=== PATIENT | male | born 1960 | race Caucasian/White ===

== ENCOUNTER 2020-05-06 14:05 | Outpatient (REF) | payer OTHER, SELFPAY ==
--- NOTE | 2020-05-06 14:21 | US_ITS ---
EXAMINATION: US VENOUS ULTRASOUND WITH DOPPLER LOWER EXTREMITY, LEFT CLINICAL INFORMATION: Swelling. COMPARISON: None TECHNIQUE: Ultrasound of the deep veins is performed from the hip to the calf with compression sonography and color and pulse Doppler assessment. Spectral analysis with color-flow imaging is performed. FINDINGS: There is normal venous compression and respiratory variation and augmented flow. The visualized common femoral vein, superficial femoral vein, profunda femoral vein, popliteal vein, and the trifurcation region shows no evidence of deep venous thrombosis. There is no significant popliteal fossa cyst. If the patient's symptoms persist, follow-up ultrasound in 5-7 days might be of value to exclude proximal propagation from a nonvisualized calf vein. US/US venous duplex LE LT IMPRESSION: No DVT demonstrated in the left lower extremity.
[2020-05-06 16:46] LABS: MANUAL DIFF FLAG NO
[2020-05-06 16:50] LABS: Basophils Percent Auto 0.5 % (0-2); Eosinophils Absolute Auto 0.2 X10*3/uL (0.0-0.4); Eosinophils Percent Auto 2.4 % (0-4); Hematocrit 42.6 % (42-52); Hemoglobin 13.8 g/dl (14.0-18.0); Imm Gran Abs Auto 0.04 X10*3/uL (0.00-0.03); Imm Gran Pct Auto 0.5 % (0.0-0.4); Lymphocytes Absolute Auto 2.4 X10*3/uL (1.2-4.9); Lymphocytes Percent Auto 29.8 % (20-40); Mean Corpuscular HGB Conc 32.4 g/dl (31.0-36.0); Mean Corpuscular Hemoglobin 31.1 pg (27.0-33.0); Mean Corpuscular Volume 95.9 fL (80-98); Mean Platelet Volume 11.3 fL (9.4-12.4); Monocytes Absolute Auto 0.7 X10*3/uL (0.1-1.2); Monocytes Percent Auto 8.4 % (2-11); Neutrophils Absolute Auto 4.6 X10*3/uL (2.0-8.3); Neutrophils Percent Auto 58.4 % (45-73); Platelet Count 212 X10*3/uL (160-400); Red Blood Count 4.44 X10*6/uL (4.60-5.80); Red Cell Distribution Width 13.4 % (11.0-16.0); White Blood Count 7.9 X10*3/uL (4.8-10.8)
[2020-05-06 17:23] LABS: B Type Natriuretic Peptide < 10 pg/mL (<100)
== END 2020-05-06 14:06 | disposition home or self-care (01) ==
LOC: HO.HMGCX 14:05
PROVIDERS: PCP Nurse Practitioner Family; Visit Provider Nurse Practitioner Family
DX: R23.3 Spontaneous ecchymoses (principal)
CPT/HCPCS: 36415; 83880; 85025; 93971

== ENCOUNTER 2020-09-02 08:14 | Outpatient (REF) | payer OTHER, SELFPAY ==
[2020-09-02 09:05] LABS: MANUAL DIFF FLAG NO
[2020-09-02 09:15] LABS: Basophils Percent Auto 0.6 % (0-2); Eosinophils Absolute Auto 0.1 X10*3/uL (0.0-0.4); Eosinophils Percent Auto 1.3 % (0-4); Hematocrit 46.9 % (42-52); Hemoglobin 15.4 g/dl (14.0-18.0); Imm Gran Abs Auto 0.02 X10*3/uL (0.00-0.03); Imm Gran Pct Auto 0.3 % (0.0-0.4); Lymphocytes Absolute Auto 2.3 X10*3/uL (1.2-4.9); Lymphocytes Percent Auto 33.8 % (20-40); Mean Corpuscular HGB Conc 32.8 g/dl (31.0-36.0); Mean Corpuscular Hemoglobin 29.6 pg (27.0-33.0); Mean Corpuscular Volume 90.2 fL (80-98); Mean Platelet Volume 11.7 fL (9.4-12.4); Monocytes Absolute Auto 0.6 X10*3/uL (0.1-1.2); Monocytes Percent Auto 8.3 % (2-11); Neutrophils Absolute Auto 3.8 X10*3/uL (2.0-8.3); Neutrophils Percent Auto 55.7 % (45-73); Platelet Count 235 X10*3/uL (160-400); Red Cell Distribution Width 14.3 % (11.0-16.0); White Blood Count 6.8 X10*3/uL (4.8-10.8)
[2020-09-02 09:27] LABS: Estimated Average Glucose 131 mg/dL; Hemoglobin A1c % 6.2 %
[2020-09-02 09:34] LABS: Alanine Aminotransferase 41 U/L (0-40); Albumin Level 4.5 g/dL (3.5-5.0); Alkaline Phosphatase 67 U/L (39-117); Anion Gap 12 (12-20); Aspartate Amino Transferase 22 U/L (5-37); Bilirubin Direct 0.2 mg/dL (0.0-0.5); Bilirubin Total 0.5 mg/dL (0.0-1.0); Blood Urea Nitrogen 19 mg/dL (9-16); Calcium 9.7 mg/dL (8.4-10.2); Carbon Dioxide 30 mmol/L (22-29); Chloride 103 mmol/L (96-108); Cholesterol 167 mg/dL; Estimated Glomerular Filt Rate > 60; Glucose Random 106 mg/dL (60-115); HDL Cholesterol 35 mg/dL; LDL Cholesterol Calculated 95 mg/dl; Potassium 4.3 mmol/L (3.3-5.1); Sodium 141 mmol/L (135-145); Triglycerides 185 mg/dL
[2020-09-02 09:47] LABS: Free T4 (Free Thyroxine) 0.94 ng/dL (0.71-1.85)
[2020-09-03 05:01] LABS: HIV AB/AG Nonreactive (Nonreactive); HIV Num 1 0.06 S/CO (0.00-0.99)
== END 2020-09-02 08:15 | disposition home or self-care (01) ==
LOC: HO.LAB 08:14
PROVIDERS: PCP Internal Medicine; Visit Provider Internal Medicine
DX: Z00.00 Encounter for general adult medical examination without abnormal findings (principal); Z11.4 Encounter for screening for human immunodeficiency virus [HIV]
CPT/HCPCS: 36415; 80048; 80061; 80076; 83036; 84439; 84443; 85025; 87389

== ENCOUNTER 2020-09-22 08:12 | Outpatient (REF) | payer OTHER, SELFPAY ==
--- NOTE | ~2020-09-22 | US_ITS ---
EXAMINATION: US ABDOMEN COMPLETE CLINICAL INFORMATION: Abnormal blood chemistry. COMPARISON: CT abdomen pelvis 09/29/2016. Ultrasound abdomen 06/09/2016. TECHNIQUE: Real-time imaging of the abdominal viscera. FINDINGS: PANCREAS: The head and body the pancreas are normal. The tail is not well visualized due to bowel gas. ABDOMINAL AORTA: The distal abdominal aorta appears slightly ectatic measuring 2.7 cm. This is similar to previous CTA September 2016 The upper and mid abdominal aorta are normal in caliber. INFERIOR VENA CAVA: Visualized portions are normal. LIVER: Liver is enlarged. Liver echotexture is increased suggestive of fatty infiltration. There is a hypoechoic area adjacent to the gallbladder, a characteristic location of focal fatty sparing. There is a small 6 x 3 x 5 mm cyst in the left lobe of the liver. There is no biliary duct dilatation. GALLBLADDER: Normal. The gallbladder is physiologically distended without evidence of stones, sludge, polyps, wall thickening or pericholecystic fluid. COMMON BILE DUCT: Normal in caliber measuring 0.2 cm in diameter. RIGHT KIDNEY: Normal. No hydronephrosis. No renal calculi or focal parenchymal lesions. The kidney measures 11.6 cm in maximum dimension. LEFT KIDNEY: Normal. No hydronephrosis. No renal calculi or focal parenchymal lesions. The kidney measures 12.1 cm in maximum dimension. SPLEEN: Normal. The spleen measures 11.3 cm in maximum dimension. FREE FLUID: None. US/US abdomen complete IMPRESSION: Enlarged echogenic liver probably representing fatty infiltration. Limited visualization of the pancreas. Ectatic distal abdominal aorta similar to CTA from 2016.
== END 2020-09-22 08:13 | disposition home or self-care (01) ==
LOC: HO.US 08:12
PROVIDERS: PCP Internal Medicine; Visit Provider Internal Medicine
DX: R79.89 Other specified abnormal findings of blood chemistry (principal)
CPT/HCPCS: 76700

== ENCOUNTER 2020-10-15 08:53 | Outpatient (REF) | payer OTHER, SELFPAY ==
--- NOTE | 2020-10-15 | PFT_ITS ---
FLOWS: FEV1 of 76% of predicted at 2.79 L. FVC 84% of predicted at 4.14 L. FEV1 to FVC ratio of 0.67. No bronchodilator response except in small to medium airways. LUNG VOLUMES: Total lung capacity 101% of predicted at 7.29 L. Residual volume 146% of predicted at 3.42 L. Slow vital capacity 79% of predicted at 3.87 L. Expiratory reserve volume 34% predicted at 0.49L. Diffusion capacity is moderately decreased. IMPRESSION: Moderate obstructive ventilatory defect with no bronchodilator response except in small to medium airways. Decreased expiratory reserve volume suggests extrathoracic restriction likely secondary to abdominal obesity. Decreased diffusion capacity suggests emphysema. MD ELEONORA Kraft/MODL / [id number] MTDD
== END 2020-10-15 08:54 | disposition home or self-care (01) ==
LOC: HO.RESP 08:53
PROVIDERS: PCP Internal Medicine; Visit Provider Internal Medicine
DX: R06.02 Shortness of breath (principal)
CPT/HCPCS: 94060; 94727; 94729

== ENCOUNTER 2020-10-27 06:44 | Outpatient (REF) | payer OTHER, SELFPAY ==
--- NOTE | ~2020-10-27 | XR_ITS ---
EXAMINATION: XR CHEST CLINICAL INFORMATION: Shortness of breath COMPARISON: Previous chest x-ray most recent August 2010 TECHNIQUE: 2 views of the chest were obtained. FINDINGS: The cardiac and mediastinal contours are normal. The lungs are clear. There is no pleural effusion or pneumothorax. There is a lead in the mid thoracic spinal canal. Bony structures are otherwise unremarkable. XR/XR chest 2V IMPRESSION: No evidence for acute disease in the chest.
== END 2020-10-27 06:45 | disposition home or self-care (01) ==
LOC: HO.XRAY 06:44
PROVIDERS: PCP Internal Medicine; Visit Provider Internal Medicine
DX: R06.02 Shortness of breath (principal)
CPT/HCPCS: 71046

== ENCOUNTER 2020-10-31 17:28 | Inpatient (IN) | payer OTHER, SELFPAY ==
[2020-10-31] VITALS (7 sets, daily range): BP systolic 97–128; BP diastolic 63–90; PULSE 77–99; RESP 16–18; TEMP 36.4–37.1; O2SAT 93–97; BMI 33.5
--- NOTE | ~2020-10-31 | XR_ITS ---
EXAMINATION: XR CHEST CLINICAL INFORMATION: Hypoxia COMPARISON: Previous chest x-rays most recent from yesterday TECHNIQUE: 2 views of the chest were obtained. FINDINGS: The cardiac and mediastinal contours are stable. There is atelectasis of the left lung base. The lungs are otherwise clear. There is no pleural effusion or pneumothorax. There is a stimulator seen in the lower thoracic spinal canal. There are mild degenerative changes of the spine. XR/XR chest 2V IMPRESSION: Atelectasis at the left lung base similar to yesterday's exam.
--- NOTE | ~2020-10-31 | CT_ITS ---
EXAMINATION: CT OF THE ABDOMEN AND PELVIS WITH AND WITHOUT CONTRAST CLINICAL INFORMATION: Evaluate for active GI bleed. COMPARISON: No priors. TECHNIQUE: CT of the abdomen and pelvis was performed from the lung bases to the proximal femurs before and after the uneventful intravenous administration of 80 mL of Omnipaque-350 following gastrointestinal bleed protocol. Oral contrast was not administered. Multiplanar reconstructions were performed and reviewed. This CT examination was performed using dose optimization techniques as appropriate, variously including the following: * Automated exposure control * Adjustment of mA and/or kV according to patient size (this includes techniques or standardized protocols for targeted exams where dose is matched to indication/reason for exam; i.e. extremities or head) * Use of iterative reconstruction technique FINDINGS: LINES AND TUBES: None. LOWER THORAX: Lung bases are clear. Heart is normal in size. No pericardial effusion or thickening. HEPATOBILIARY: The liver is normal in size, contour, and attenuation. No focal hepatic lesions. The gallbladder is present and otherwise unremarkable. No biliary dilatation. SPLEEN: Normal. PANCREAS: Normal. ADRENALS: Normal. KIDNEYS/URETERS: Symmetric nephrograms. No solid enhancing lesions. No renal calculi. Ureters are normal throughout their course. BLADDER: Normal. PELVIC ORGANS: Prostate seminal vesicles are normal in caliber. Central prostatic calcifications. GI TRACT: No dilated or thick walled loops of bowel. No evidence of hyperacute or delayed intraluminal contrast in the small and large bowel appreciated. The appendix is unremarkable. PERITONEUM/RETROPERITONEUM AND MESENTERY: No intraperitoneal free air or fluid. LYMPH NODES: No pathologically enlarged lymph nodes. VESSELS: Normal in caliber. BONES AND SOFT TISSUES: No aggressive osseous lesions. L4-S1 instrumentation without hardware abnormality. CT/CT gi bleed abd pel wo/w con IMPRESSION: No evidence of hyperacute or delayed intraluminal contrast in the visualized bowel to suggest CT imaging findings of gastrointestinal bleeding. No acute pathology in the abdomen/pelvis. Normal caliber small and large bowel.
--- NOTE | ~2020-10-31 | XR_ITS ---
EXAMINATION: XR CHEST CLINICAL INFORMATION: Decreased oxygen saturation. Rule out aspiration pneumonia COMPARISON: Previous chest x-ray 10/27/2020 TECHNIQUE: 2 views of the chest were obtained. FINDINGS: The cardiac and mediastinal contours are normal. There is subsegmental atelectasis of the left lung base. No evidence of a pneumonia is seen. There is no pleural effusion or pneumothorax. There is a spinal stimulator in the lower thoracic spinal canal. There are mild degenerative changes of the spine. XR/XR chest 2V IMPRESSION: Subsegmental atelectasis at the left lung base. No evidence of pneumonia.
--- NOTE | 2020-10-31 19:04 | ECG_ITS ---
Test Reason : GI-BLEED Blood Pressure : / mmHG Vent. Rate : 071 BPM Atrial Rate : 071 BPM P-R Int : 150 ms QRS Dur : 088 ms QT Int : 380 ms P-R-T Axes : 061 -31 030 degrees QTc Int : 412 ms Normal sinus rhythm Left axis deviation Borderline ECG When compared with ECG of 30-JUL-2009 06:32, T wave amplitude has decreased in Anterior leads Referred By: Remedios Pham Electronically Signed By:SHELIA WEAVER
[2020-10-31 19:08] LABS: OBS Int Ctl Valid YES; OBS1 POSITIVE (NEGATIVE)
[2020-10-31 19:38] LABS: MANUAL DIFF FLAG NO
[2020-10-31 19:39] LABS: Basophils Absolute Auto 0.1 X10*3/uL (0.0-0.2); Basophils Percent Auto 0.6 % (0-2); Eosinophils Absolute Auto 0.2 X10*3/uL (0.0-0.4); Eosinophils Percent Auto 2.4 % (0-4); Hematocrit 37.4 % (42-52); Hemoglobin 12.2 g/dl (14.0-18.0); Imm Gran Abs Auto 0.03 X10*3/uL (0.00-0.03); Imm Gran Pct Auto 0.4 % (0.0-0.4); Lymphocytes Percent Auto 37.5 % (20-40); Mean Corpuscular HGB Conc 32.6 g/dl (31.0-36.0); Mean Corpuscular Hemoglobin 30.2 pg (27.0-33.0); Mean Corpuscular Volume 92.6 fL (80-98); Monocytes Absolute Auto 0.8 X10*3/uL (0.1-1.2); Monocytes Percent Auto 9.5 % (2-11); Neutrophils Percent Auto 49.6 % (45-73); Platelet Count 202 X10*3/uL (160-400); Red Blood Count 4.04 X10*6/uL (4.60-5.80); Red Cell Distribution Width 14.2 % (11.0-16.0)
[2020-10-31 19:47] LABS: Prothrombin Time 12.4 SEC (10.8-13.0)
[2020-10-31 19:52] LABS: COVID-19 Test Negative (Negative)
--- NOTE | 2020-10-31 19:52 | ED.GIBLEED ---
HPI - GI Bleed General Chief complaint: GI Bleed <Remedios Pham NP - Last Filed: 10/31/20 21:21> Stated complaint: Rectal bleeding <Remedios Pham NP - Last Filed: 10/31/20 21:21> Time Seen by Provider: 10/31/20 19:04 <Remedios Pham NP - Last Filed: 10/31/20 21:21> Source: patient <Remedios Pham NP - Last Filed: 10/31/20 21:21> Mode of arrival: ambulatory <Remedios Pham NP - Last Filed: 10/31/20 21:21> Limitations: no limitations <Remedios Pham NP - Last Filed: 10/31/20 21:21> History of Present Illness HPI Narrative: 60-year-old male with a past medical history of chronic back pain, anxiety, depression, high cholesterol here with complaints of rectal bleeding. The patient tells me yesterday he had 8 episodes of bright red blood in his stool and today he has had 3 episodes. No associated abdominal pain. No nausea, vomiting, fevers, chills. The patient has been taking naproxen twice daily for years due to chronic back pain. He denies any history of upper GI bleed or liver problems. He has a history of alcohol abuse but has been sober for 6 months. Prior to this he was drinking 20-30 nips of fireball every day for years. Last colonoscopy by Dr. Mckeon. Per patient's normal with exception of some polyps status post polypectomy, mild sigmoid diverticulosis, minimal internal hemorrhoids. <Remedios Pham NP - Last Filed: 10/31/20 21:21> Related Data Home medications: Home Medications Medication Instructions Recorded Confirmed naproxen 500 mg tablet 500 mg PO BID 05/06/20 10/31/20 pregabalin 300 mg capsule 300 mg PO BID 05/06/20 10/31/20 sertraline 100 mg tablet 100 mg PO DAILY 05/06/20 10/31/20 simvastatin 20 mg tablet 20 mg PO BEDTIME 05/06/20 10/31/20 zolpidem 12.5 mg tablet,extended 12.5 mg PO BEDTIME 05/06/20 10/31/20 release,multiphase hydroxyzine HCl 1 tab PO BID 10/31/20 10/31/20 loteprednol etabonate 1 drp OPHTHALMIC (EYE) BID 10/31/20 10/31/20 tadalafil 1 tab PO DAILY PRN 10/31/20 10/31/20 tramadol 1 tab PO Q12H PRN 10/31/20 10/31/20 <Remedios Pham NP - Last Filed: 10/31/20 21:21> Allergies/Adverse reactions: Allergies Allergy/AdvReac Type Severity Reaction Status Date / Time clonazepam [Klonopin] Allergy Unknown Unknown Verified 05/06/20 12:51 No Known Allergies Allergy Unverified 03/12/20 15:06 <Remedios Pham NP - Last Filed: 10/31/20 21:21> Review of Systems Review of Systems: Yes all other systems are reviewed and are negative <Remedios Pham NP - Last Filed: 10/31/20 21:21> Constitutional: Constitutional: Reports no additional constitutional complaints, Denies body ache(s), Denies chills, Denies fever(s), Denies headache(s) and Denies weakness <Remedios Pham NP - Last Filed: 10/31/20 21:21> Eyes: Eyes: Reports no additional eye complaints and Denies change in vision <Remedios Pham NP - Last Filed: 10/31/20 21:21> ENT: Reports system reviewed and no additional complaints, except as documented, Denies dizziness, Denies headache(s), Denies nasal congestion, Denies nasal discharge and Denies neck pain <Remedios Pham NP - Last Filed: 10/31/20 21:21> Cardiovascular: Cardiovascular: Reports no additional cardiovascular complaints, Denies chest pain, Denies leg edema and Denies dyspnea <Remedios Pham NP - Last Filed: 10/31/20 21:21> Respiratory: Respiratory: Reports no additional respiratory complaints, Denies cough and Denies dyspnea <EDMUND Hansen Last Filed: 10/31/20 21:21> Gastrointestinal: Gastrointestinal: Reports no additional gastrointestinal complaints, Denies abdominal pain, Reports hematochezia, Denies diarrhea, Denies nausea and Denies vomiting <Remedios Pham NP - Last Filed: 10/31/20 21:21> Genitourinary: Genitourinary: Denies urinary incontinence <Remedios Pham NP - Last Filed: 10/31/20 21:21> Musculoskeletal: Musculoskeletal: Reports no additional musculoskeletal complaints, Denies back pain, Denies arthralgias, Denies joint swelling, Denies neck pain, Denies numbness and Denies tingling <Remedios Pham NP - Last Filed: 10/31/20 21:21> Integumentary/Breasts: Skin/Breast: Reports system reviewed and no additional complaints, except as docu and Denies rash <Remedios Pham NP - Last Filed: 10/31/20 21:21> Neurologic: Reports system reviewed and no additional complaints, except as documented, Denies Abnormal speech present, Denies dizziness, Denies headache(s), Denies numbness, Denies tingling and Denies weakness <Remedios Pham NP - Last Filed: 10/31/20 21:21> [facility] Past Medical History Attestation statement: The following information was validated with the patient. <Remedios Pham NP - Last Filed: 10/31/20 21:21> Source: old records reviewed and nursing notes reviewed <Remedios Pham NP - Last Filed: 10/31/20 21:21> Medical History: Medical History Arthritis Back pain Hypercholesterolemia <Remedios Pham NP - Last Filed: 10/31/20 21:21> Social History Social History: Social History Advance Directives: No Advance Directives Information Provided: Yes <Remedios Pham NP - Last Filed: 10/31/20 21:21> Physical Exam Vital Signs: Vital Signs: Last Vital Signs Temp 97.6 F 10/31/20 22:00 Pulse 85 10/31/20 22:00 Resp 18 10/31/20 22:00 BP 98/71 10/31/20 22:00 Pulse Ox 95 10/31/20 22:00 Body Mass Index 33.5 <Remedios Pham NP - Last Filed: 10/31/20 21:21> Vital Signs: Last Vital Signs Temp 97.6 F 10/31/20 22:00 Pulse 85 10/31/20 22:00 Resp 18 10/31/20 22:00 BP 98/71 10/31/20 22:00 Pulse Ox 95 10/31/20 22:00 Body Mass Index 33.5 <Lynn Umanzor MD - Last Filed: 10/31/20 23:25> Const: General: cooperative, healthy appearing, comfortable and no acute distress <Remedios Pham NP - Last Filed: 10/31/20 21:21> Orientation/consciousness: patient oriented x3 <Remedios Pham NP - Last Filed: 10/31/20 21:21> Limitations: no limitations <Remedios Pham NP - Last Filed: 10/31/20 21:21> HENMT: Head: Yes normal to inspection <Remedios Pham NP - Last Filed: 10/31/20 21:21> Ears: hearing grossly normal bilaterally <Remedios Pham NP - Last Filed: 10/31/20 21:21> General nose exam: Normal external nose present <Remedios Pham NP - Last Filed: 10/31/20 21:21> Face and sinus: Yes normal facial exam <Remedios Pham NP - Last Filed: 10/31/20 21:21> Mouth: Normal oral and palatal mucosa present <Remedios Pham NP - Last Filed: 10/31/20 21:21> Throat: Yes posterior oropharynx normal <Remedios Pham NP - Last Filed: 10/31/20 21:21> Eyes: General: appearance normal, both eyes and all related structures <Remedios Pham NP - Last Filed: 10/31/20 21:21> Pupils: Equal, round and reactive pupils present <Remedios Pham NP - Last Filed: 10/31/20 21:21> Neck: Neck: Yes normal visual inspection <Remedios Pham NP - Last Filed: 10/31/20 21:21> Chest: Chest palpation & inspection: normal inspection of the chest <Remedios Pham NP - Last Filed: 10/31/20 21:21> Resp: Effort & Inspection: normal respiratory effort <Remedios Pham NP - Last Filed: 10/31/20 21:21> Auscultation: clear to auscultation bilaterally <Remedios Pham NP - Last Filed: 10/31/20 21:21> Cardio: Rate: regular rate <Remedios Pham NP - Last Filed: 10/31/20 21:21> Rhythm: regular rhythm <Remedios Pham NP - Last Filed: 10/31/20 21:21> Peripheral pulses: Peripheral pulses 2+ throughout <Remedios Pham NP - Last Filed: 10/31/20 21:21> GI: Other: Stool maroon on exam <Remedios Pham NP - Last Filed: 10/31/20 21:21> Inspection: Yes normal to inspection <Remedios Pham NP - Last Filed: 10/31/20 21:21> Palpation (GI): Soft to palpation and nontender <Remedios Pham NP - Last Filed: 10/31/20 21:21> Auscultation: normal bowel sounds <Remedios Pham NP - Last Filed: 10/31/20 21:21> Rectal Exam - Male: Yes normal sphincter tone and Yes heme positive stool <Remedios Pham NP - Last Filed: 10/31/20 21:21> Back/Spine/Pelvis: Thoracic/Lumbar Spine: thoracic and lumbar spine normal to inspection <Remedios Pham NP - Last Filed: 10/31/20 21:21> Skin: General skin exam: no rashes or lesions noted <Remedios Pham NP - Last Filed: 10/31/20 21:21> Neuro: General: patient oriented x3, no focal motor deficits and normal sensation to monofilament <Remedios Pham NP - Last Filed: 10/31/20 21:21> Cranial nerves: Yes Equal, round and reactive pupils present <Remedios Pham NP - Last Filed: 10/31/20 21:21> Cognition (Neuro): normal cognition <Remedios Pham NP - Last Filed: 10/31/20 21:21> Speech: No Abnormal speech present <Remedios Pham NP - Last Filed: 10/31/20 21:21> Gait exam (Neuro): Normal gait present <Remedios Pham NP - Last Filed: 10/31/20 21:21> Motor exam (neuro): 5/5 motor strength present throughout <Remedios Pham NP - Last Filed: 10/31/20 21:21> Extrem: General: Yes normal to inspection <Remedios Pham NP - Last Filed: 10/31/20 21:21> Course Course Course Narrative: 60 year old male here with GI bleeding since yesterday. No associated pain. Exam consistent with maroon stool on exam heme-positive. Will need labs including type and screen, UA, EKG, orthostatic vital signs and 2 large bore PIV. 1999-labs show hemoglobin of 12.2 and hematocrit of 37.4. The patient had a CBC done 09/02/2020 which shows a hemoglobin of 15.4 and hematocrit of 46.9. Chemistries are unremarkable. Orthostatics negative. HD stable. Two episodes of bloody stools in ED. Call out to GI to discuss. 2029-discussed with Dr. Garcia from GI. Recommended obtaining GI bleed study, monitoring hemoglobin, NPO after midnight for procedure tomorrow. 2099-Repeat CBC pending. GI bleed study pending. Spoke to Dr Rodriguez from medicine team for admission. Requesting repeat CBC, CT, update with GI as well as any additional episodes prior to admission. 2114-Sign out to Dr Umanzor pending above. <Remedios Pham NP - Last Filed: 10/31/20 21:21> Re-evaluated the patient and reviewed all further studies, hemoglobin appears to be somewhat stable and CT scan is ?no evidence of hyperacute or delayed intra luminal contrast in the visualized bowel to suggest CT imaging findings of gastrointestinal bleeding.?. All findings were communicated with the knifeman as well as the inpatient hospitalist team as well as the fact the patient continues to have maroon stools. Patient will be admitted at this time. <Lynn Umanzor MD - Last Filed: 10/31/20 23:25> MDM - GI Bleed MDM Narrative Medical decision making narrative: Not likely upper GI bleeding with only hematochezia and NO hematememsis although based on h/o chronic NSAID and former alcohol abuse is still a consideration. More likely diverticular bleed with h/o of diverticulosis and hematochezia. <Remedios Pham NP - Last Filed: 10/31/20 21:21> Medical Records Attestation: I reviewed the patient's medical records. <Remedios Pham NP - Last Filed: 10/31/20 21:21> Lab Data Attestation: I reviewed the patient's lab results. <Remedios Pham NP - Last Filed: 10/31/20 21:21> Result diagrams: : 10/31/20 21:23 10/31/20 19:31 <Remedios Pham NP - Last Filed: 10/31/20 21:21> Labs: Lab Results 10/31/20 10/31/20 10/31/20 Range/Units 19:02 19:31 19:31 WBC 8.0 (4.8-10.8) X10*3/uL RBC 4.04 L D (4.60-5.80) X10*6/uL Hgb 12.2 L D (14.0-18.0) g/dl Hct 37.4 L D (42-52) % MCV 92.6 (80-98) fL MCH 30.2 (27.0-33.0) pg MCHC 32.6 (31.0-36.0) g/dl RDW 14.2 (11.0-16.0) % Plt Count 202 (160-400) X10*3/uL MPV 11.0 (9.4-12.4) fL Immature Gran % (Auto) 0.4 (0.0-0.4) % Neut % (Auto) 49.6 (45-73) % Lymph % (Auto) 37.5 (20-40) % [place] % (Auto) 9.5 (2-11) % Eos % (Auto) 2.4 (0-4) % Baso % (Auto) 0.6 (0-2) % Lymph # (Auto) 3.0 (1.2-4.9) X10*3/uL [place] # (Auto) 0.8 (0.1-1.2) X10*3/uL Eos # (Auto) 0.2 (0.0-0.4) X10*3/uL Baso # (Auto) 0.1 (0.0-0.2) X10*3/uL Abs Immat Gran (auto) 0.03 (0.00-0.03) X10*3/uL Absolute Neuts (auto) 4.0 (2.0-8.3) X10*3/uL Absolute Nucleated RBC 0.000 (0.0-0.012) X10*3/uL Nucleated RBC % (auto) 0.0 (0.0-0.2) /100WBC PT 12.4 (10.8-13.0) SEC INR 1.0 (0.9-1.1) Sodium (135-145) mmol/L Potassium (3.3-5.1) mmol/L Chloride (96-108) mmol/L Carbon Dioxide (22-29) mmol/L Anion Gap (12-20) BUN (9-16) mg/dL Creatinine (0.5-1.4) mg/dL Estim Creat Clear Calc Estimated GFR Random Glucose (60-115) mg/dL Calcium (8.4-10.2) mg/dL Magnesium (1.6-2.6) mg/dL Total Bilirubin (0.0-1.0) mg/dL Direct Bilirubin (0.0-0.5) mg/dL AST (5-37) U/L ALT (0-40) U/L Alkaline Phosphatase (39-117) U/L Total Protein (6.5-8.0) g/dL Albumin (3.5-5.0) g/dL Lipase (8-78) U/L Stool Occult Blood POSITIVE (NEGATIVE) COVID-19 (JACKLYN) (Negative) COVID-19 Clin [facility] Blood Type Antibody Screen Crossmatch 10/31/20 10/31/20 10/31/20 Range/Units 19:31 19:31 19:39 WBC (4.8-10.8) X10*3/uL RBC (4.60-5.80) X10*6/uL Hgb (14.0-18.0) g/dl Hct (42-52) % MCV (80-98) fL MCH (27.0-33.0) pg MCHC (31.0-36.0) g/dl RDW (11.0-16.0) % Plt Count (160-400) X10*3/uL MPV (9.4-12.4) fL Immature Gran % (Auto) (0.0-0.4) % Neut % (Auto) (45-73) % Lymph % (Auto) (20-40) % [place] % (Auto) (2-11) % Eos % (Auto) (0-4) % Baso % (Auto) (0-2) % Lymph # (Auto) (1.2-4.9) X10*3/uL [place] # (Auto) (0.1-1.2) X10*3/uL Eos # (Auto) (0.0-0.4) X10*3/uL Baso # (Auto) (0.0-0.2) X10*3/uL Abs Immat Gran (auto) (0.00-0.03) X10*3/uL Absolute Neuts (auto) (2.0-8.3) X10*3/uL Absolute Nucleated RBC (0.0-0.012) X10*3/uL Nucleated RBC % (auto) (0.0-0.2) /100WBC PT (10.8-13.0) SEC INR (0.9-1.1) Sodium 141 (135-145) mmol/L Potassium 4.8 (3.3-5.1) mmol/L Chloride 109 H (96-108) mmol/L Carbon Dioxide 26 (22-29) mmol/L Anion Gap 11 L (12-20) BUN 18 H (9-16) mg/dL Creatinine 0.98 (0.5-1.4) mg/dL Estim Creat Clear Calc 98.0 Estimated GFR > 60 Random Glucose 105 (60-115) mg/dL Calcium 8.7 D (8.4-10.2) mg/dL Magnesium 2.1 (1.6-2.6) mg/dL Total Bilirubin 0.7 (0.0-1.0) mg/dL Direct Bilirubin 0.2 (0.0-0.5) mg/dL AST 26 (5-37) U/L ALT 46 H (0-40) U/L Alkaline Phosphatase 60 (39-117) U/L Total Protein 6.0 L (6.5-8.0) g/dL Albumin 3.9 (3.5-5.0) g/dL Lipase 25 (8-78) U/L Stool Occult Blood (NEGATIVE) COVID-19 (JACKLYN) Negative (Negative) COVID-19 Clin Com See Note Blood Type A Positive Antibody Screen NEGATIVE Crossmatch See Detail 10/31/20 Range/Units 21:23 WBC 8.6 (4.8-10.8) X10*3/uL RBC 3.92 L (4.60-5.80) X10*6/uL Hgb 12.0 L (14.0-18.0) g/dl Hct 36.5 L (42-52) % MCV 93.1 (80-98) fL MCH 30.6 (27.0-33.0) pg MCHC 32.9 (31.0-36.0) g/dl RDW 14.3 (11.0-16.0) % Plt Count 229 (160-400) X10*3/uL MPV 11.3 (9.4-12.4) fL Immature Gran % (Auto) 0.2 (0.0-0.4) % Neut % (Auto) 47.8 (45-73) % Lymph % (Auto) 39.7 (20-40) % [place] % (Auto) 9.5 (2-11) % Eos % (Auto) 2.1 (0-4) % Baso % (Auto) 0.7 (0-2) % Lymph # (Auto) 3.4 (1.2-4.9) X10*3/uL [place] # (Auto) 0.8 (0.1-1.2) X10*3/uL Eos # (Auto) 0.2 (0.0-0.4) X10*3/uL Baso # (Auto) 0.1 (0.0-0.2) X10*3/uL Abs Immat Gran (auto) 0.02 (0.00-0.03) X10*3/uL Absolute Neuts (auto) 4.1 (2.0-8.3) X10*3/uL Absolute Nucleated RBC 0.000 (0.0-0.012) X10*3/uL Nucleated RBC % (auto) 0.0 (0.0-0.2) /100WBC PT (10.8-13.0) SEC INR (0.9-1.1) Sodium (135-145) mmol/L Potassium (3.3-5.1) mmol/L Chloride (96-108) mmol/L Carbon Dioxide (22-29) mmol/L Anion Gap (12-20) BUN (9-16) mg/dL Creatinine (0.5-1.4) mg/dL Estim Creat Clear Calc Estimated GFR Random Glucose (60-115) mg/dL Calcium (8.4-10.2) mg/dL Magnesium (1.6-2.6) mg/dL Total Bilirubin (0.0-1.0) mg/dL Direct Bilirubin (0.0-0.5) mg/dL AST (5-37) U/L ALT (0-40) U/L Alkaline Phosphatase (39-117) U/L Total Protein (6.5-8.0) g/dL Albumin (3.5-5.0) g/dL Lipase (8-78) U/L Stool Occult Blood (NEGATIVE) COVID-19 (JACKLYN) (Negative) COVID-19 Clin Com Blood Type Antibody Screen Crossmatch <Remedios Pham NP - Last Filed: 10/31/20 21:21> Lab Results 10/31/20 10/31/20 10/31/20 Range/Units 19:02 19:31 19:31 WBC 8.0 (4.8-10.8) X10*3/uL RBC 4.04 L D (4.60-5.80) X10*6/uL Hgb 12.2 L D (14.0-18.0) g/dl Hct 37.4 L D (42-52) % MCV 92.6 (80-98) fL MCH 30.2 (27.0-33.0) pg MCHC 32.6 (31.0-36.0) g/dl RDW 14.2 (11.0-16.0) % Plt Count 202 (160-400) X10*3/uL MPV 11.0 (9.4-12.4) fL Immature Gran % (Auto) 0.4 (0.0-0.4) % Neut % (Auto) 49.6 (45-73) % Lymph % (Auto) 37.5 (20-40) % [place] % (Auto) 9.5 (2-11) % Eos % (Auto) 2.4 (0-4) % Baso % (Auto) 0.6 (0-2) % Lymph # (Auto) 3.0 (1.2-4.9) X10*3/uL [place] # (Auto) 0.8 (0.1-1.2) X10*3/uL Eos # (Auto) 0.2 (0.0-0.4) X10*3/uL Baso # (Auto) 0.1 (0.0-0.2) X10*3/uL Abs Immat Gran (auto) 0.03 (0.00-0.03) X10*3/uL Absolute Neuts (auto) 4.0 (2.0-8.3) X10*3/uL Absolute Nucleated RBC 0.000 (0.0-0.012) X10*3/uL Nucleated RBC % (auto) 0.0 (0.0-0.2) /100WBC PT 12.4 (10.8-13.0) SEC INR 1.0 (0.9-1.1) Sodium (135-145) mmol/L Potassium (3.3-5.1) mmol/L Chloride (96-108) mmol/L Carbon Dioxide (22-29) mmol/L Anion Gap (12-20) BUN (9-16) mg/dL Creatinine (0.5-1.4) mg/dL Estim Creat Clear Calc Estimated GFR Random Glucose (60-115) mg/dL Calcium (8.4-10.2) mg/dL Magnesium (1.6-2.6) mg/dL Total Bilirubin (0.0-1.0) mg/dL Direct Bilirubin (0.0-0.5) mg/dL AST (5-37) U/L ALT (0-40) U/L Alkaline Phosphatase (39-117) U/L Total Protein (6.5-8.0) g/dL Albumin (3.5-5.0) g/dL Lipase (8-78) U/L Stool Occult Blood POSITIVE (NEGATIVE) COVID-19 (JACKLYN) (Negative) COVID-19 Clin Com Blood Type Antibody Screen Crossmatch 10/31/20 10/31/20 10/31/20 Range/Units 19:31 19:31 19:39 WBC (4.8-10.8) X10*3/uL RBC (4.60-5.80) X10*6/uL Hgb (14.0-18.0) g/dl Hct (42-52) % MCV (80-98) fL MCH (27.0-33.0) pg MCHC (31.0-36.0) g/dl RDW (11.0-16.0) % Plt Count (160-400) X10*3/uL MPV (9.4-12.4) fL Immature Gran % (Auto) (0.0-0.4) % Neut % (Auto) (45-73) % Lymph % (Auto) (20-40) % [place] % (Auto) (2-11) % Eos % (Auto) (0-4) % Baso % (Auto) (0-2) % Lymph # (Auto) (1.2-4.9) X10*3/uL [place] # (Auto) (0.1-1.2) X10*3/uL Eos # (Auto) (0.0-0.4) X10*3/uL Baso # (Auto) (0.0-0.2) X10*3/uL Abs Immat Gran (auto) (0.00-0.03) X10*3/uL Absolute Neuts (auto) (2.0-8.3) X10*3/uL Absolute Nucleated RBC (0.0-0.012) X10*3/uL Nucleated RBC % (auto) (0.0-0.2) /100WBC PT (10.8-13.0) SEC INR (0.9-1.1) Sodium 141 (135-145) mmol/L Potassium 4.8 (3.3-5.1) mmol/L Chloride 109 H (96-108) mmol/L Carbon Dioxide 26 (22-29) mmol/L Anion Gap 11 L (12-20) BUN 18 H (9-16) mg/dL Creatinine 0.98 (0.5-1.4) mg/dL Estim Creat Clear Calc 98.0 Estimated GFR > 60 Random Glucose 105 (60-115) mg/dL Calcium 8.7 D (8.4-10.2) mg/dL Magnesium 2.1 (1.6-2.6) mg/dL Total Bilirubin 0.7 (0.0-1.0) mg/dL Direct Bilirubin 0.2 (0.0-0.5) mg/dL AST 26 (5-37) U/L ALT 46 H (0-40) U/L Alkaline Phosphatase 60 (39-117) U/L Total Protein 6.0 L (6.5-8.0) g/dL Albumin 3.9 (3.5-5.0) g/dL Lipase 25 (8-78) U/L Stool Occult Blood (NEGATIVE) COVID-19 (JACKLYN) Negative (Negative) COVID-19 Clin Com See Note Blood Type A Positive Antibody Screen NEGATIVE Crossmatch See Detail 10/31/20 Range/Units 21:23 WBC 8.6 (4.8-10.8) X10*3/uL RBC 3.92 L (4.60-5.80) X10*6/uL Hgb 12.0 L (14.0-18.0) g/dl Hct 36.5 L (42-52) % MCV 93.1 (80-98) fL MCH 30.6 (27.0-33.0) pg MCHC 32.9 (31.0-36.0) g/dl RDW 14.3 (11.0-16.0) % Plt Count 229 (160-400) X10*3/uL MPV 11.3 (9.4-12.4) fL Immature Gran % (Auto) 0.2 (0.0-0.4) % Neut % (Auto) 47.8 (45-73) % Lymph % (Auto) 39.7 (20-40) % [place] % (Auto) 9.5 (2-11) % Eos % (Auto) 2.1 (0-4) % Baso % (Auto) 0.7 (0-2) % Lymph # (Auto) 3.4 (1.2-4.9) X10*3/uL [place] # (Auto) 0.8 (0.1-1.2) X10*3/uL Eos # (Auto) 0.2 (0.0-0.4) X10*3/uL Baso # (Auto) 0.1 (0.0-0.2) X10*3/uL Abs Immat Gran (auto) 0.02 (0.00-0.03) X10*3/uL Absolute Neuts (auto) 4.1 (2.0-8.3) X10*3/uL Absolute Nucleated RBC 0.000 (0.0-0.012) X10*3/uL Nucleated RBC % (auto) 0.0 (0.0-0.2) /100WBC PT (10.8-13.0) SEC INR (0.9-1.1) Sodium (135-145) mmol/L Potassium (3.3-5.1) mmol/L Chloride (96-108) mmol/L Carbon Dioxide (22-29) mmol/L Anion Gap (12-20) BUN (9-16) mg/dL Creatinine (0.5-1.4) mg/dL Estim Creat Clear Calc Estimated GFR Random Glucose (60-115) mg/dL Calcium (8.4-10.2) mg/dL Magnesium (1.6-2.6) mg/dL Total Bilirubin (0.0-1.0) mg/dL Direct Bilirubin (0.0-0.5) mg/dL AST (5-37) U/L ALT (0-40) U/L Alkaline Phosphatase (39-117) U/L Total Protein (6.5-8.0) g/dL Albumin (3.5-5.0) g/dL Lipase (8-78) U/L Stool Occult Blood (NEGATIVE) COVID-19 (JACKLYN) (Negative) COVID-19 Clin Com Blood Type Antibody Screen Crossmatch <Lynn Umanzor MD - Last Filed: 10/31/20 23:25> ECG Data Attestation: I personally reviewed and interpreted this ECG as follows: <Remedios Pham NP - Last Filed: 10/31/20 21:21> ECG interpretation date: 10/31/20 <Remedios Pham NP - Last Filed: 10/31/20 21:21> ECG interpretation time: 19:32 <Remedios Pham NP - Last Filed: 10/31/20 21:21> Interpretation: Normal sinus rhythm with a rate of 71, normal VT, remarked QRS, QTC <Remedios Pham NP - Last Filed: 10/31/20 21:21> Discharge Plan Discharge Clinical Impression: Lower gastrointestinal hemorrhage <Remedios Pham NP - Last Filed: 10/31/20 21:21> Patient Disposition: Admitted As Inpatient <Remedios Pham NP - Last Filed: 10/31/20 21:21>
[2020-10-31 20:02] LABS: Alanine Aminotransferase 46 U/L (0-40); Albumin Level 3.9 g/dL (3.5-5.0); Alkaline Phosphatase 60 U/L (39-117); Anion Gap 11 (12-20); Aspartate Amino Transferase 26 U/L (5-37); Bilirubin Direct 0.2 mg/dL (0.0-0.5); Bilirubin Total 0.7 mg/dL (0.0-1.0); Blood Urea Nitrogen 18 mg/dL (9-16); Calcium 8.7 mg/dL (8.4-10.2); Carbon Dioxide 26 mmol/L (22-29); Chloride 109 mmol/L (96-108); Estimated Glomerular Filt Rate > 60; Glucose Random 105 mg/dL (60-115); Lipase 25 U/L (8-78); Magnesium 2.1 mg/dL (1.6-2.6); Potassium 4.8 mmol/L (3.3-5.1); Sodium 141 mmol/L (135-145)
--- NOTE | 2020-10-31 20:24 | PC.NURSE ---
ASSUMED CARE OF PT. PT UP AND IN RESTROOM AT THIS TIME. PT HAVING FREQUENT BM'S WITH SOME CLOTS IN STOOL. PT ALERT, RESPIRATIONS EASY, N/L. SKIN W/D. FAMILY WITH PT AT BEDSIDE. PT AWAITING PENDING ADMISSION. PT AWAITING FURTHER ORDERS.
[2020-10-31] MEDS: iohexoL 350 MG/ML 100 ML INFUS..BTL IV (20:52)
[2020-10-31] MEDS: 0.9 % Sodium Chloride 1,000 ML 999 ML IV (20:54)
[2020-10-31 21:27] LABS: MANUAL DIFF FLAG NO
[2020-10-31 21:28] LABS: Basophils Absolute Auto 0.1 X10*3/uL (0.0-0.2); Basophils Percent Auto 0.7 % (0-2); Eosinophils Absolute Auto 0.2 X10*3/uL (0.0-0.4); Eosinophils Percent Auto 2.1 % (0-4); Hematocrit 36.5 % (42-52); Imm Gran Abs Auto 0.02 X10*3/uL (0.00-0.03); Imm Gran Pct Auto 0.2 % (0.0-0.4); Lymphocytes Absolute Auto 3.4 X10*3/uL (1.2-4.9); Lymphocytes Percent Auto 39.7 % (20-40); Mean Corpuscular HGB Conc 32.9 g/dl (31.0-36.0); Mean Corpuscular Hemoglobin 30.6 pg (27.0-33.0); Mean Corpuscular Volume 93.1 fL (80-98); Mean Platelet Volume 11.3 fL (9.4-12.4); Monocytes Absolute Auto 0.8 X10*3/uL (0.1-1.2); Monocytes Percent Auto 9.5 % (2-11); Neutrophils Absolute Auto 4.1 X10*3/uL (2.0-8.3); Neutrophils Percent Auto 47.8 % (45-73); Platelet Count 229 X10*3/uL (160-400); Red Blood Count 3.92 X10*6/uL (4.60-5.80); Red Cell Distribution Width 14.3 % (11.0-16.0); White Blood Count 8.6 X10*3/uL (4.8-10.8)
--- NOTE | 2020-10-31 23:10 | PC.NURSE ---
PT C/O FEELING NAUSEATED AT THIS TIME. PT IS NOT VOMITING. MD AWARE. COMMODE AT BEDSIDE SO MD CAN VISUALIZED THE BM'S. NS UP AND RUNNING, SITE INTACT.
[2020-10-31] MEDS: ondansetron HCL 4 MG/2 ML VIAL IVPUSH (23:41)
--- NOTE | 2020-10-31 23:45 | PC.NURSE ---
hospitalist in room for eval. Pt medicated for nausea at this time.
--- NOTE | 2020-10-31 23:57 | PC.NURSE ---
APPROX 100ML OF DARK BURGENDY STOOL IN COMMODE. MD AWARE. CONSENT SIGNED FOR TRANSFUSION. PT DENIES ANY SOB OR DIZZINESS AT THIS TIME. PT STATES IM FEELING LESS NAUSEOUS . PT REMAINS ALERT, RESPIRATIONS EASY, N/L. SKIN W/D. PT DENIES ANY COMPLAINTS. REMAINS AT BEDSIDE WITH PT. PT AWAITING FOR ROOM ASSIGNMENT.
[2020-11-01] VITALS (25 sets, daily range): BP systolic 85–140; BP diastolic 49–87; PULSE 62–88; RESP 14–20; TEMP 35.8–37.1; O2SAT 95–99
--- NOTE | 2020-11-01 00:38 | PC.NURSE ---
transfusion started at this time. pt educated on s/s of reaction. vs obtained.
[2020-11-01] MEDS: Morphine Sulfate 4 MG/ML CARTRIDGE 3 MG IVPUSH (02:31)
[2020-11-01] MEDS: Pantoprazole Sodium 40 MG/10 ML VIAL IVPUSH ×2 (05:17→16:03)
--- NOTE | 2020-11-01 06:32 | P.HPHOSP_ITS ---
History of Present Illness Date of Service: 10/31/20 Chief Complaint: GI bleed Of arthritis for which he uses Naprosyn twice daily for more than a year, HLD who presents to the hospital with complaints of multiple episodes of bloody bowel movements. Patient reports he had 8 episodes a day prior, and further episodes today which prompted him to come to the hospital. Has had bright red blood, with some urgency to move his bowels, no nausea or vomiting, no significant abdominal pain except some cramping like go to the toilet constantly, no urinary symptoms and no lower extremity edema. No chest pain shortness of breath. Denies feeling any dizziness, headache or change in vision. On arrival to the ED hemodynamically stable with no significant abnormal vitals. Stable heart rate, respiratory rate, and blood pressure Had a hemoglobin of 12.2, normal WBC, BUN of 18, ALT of 46, otherwise unremarkable. Repeat H&H are 12. Abdominal pelvic CT showed no evidence of hyperacute or delayed intraluminal co ntrast and the visualized bowel to suggest CT image findings of gastrointestinal bleed Had multiple episodes of GI bleed in the ED. Dr. Garcia was consulted and recommended GI prep for colonoscopy endoscopy in the morning Review of Systems Review of Systems: Yes all other systems are reviewed and are negative [facility] Medical History Arthritis Back pain Hypercholesterolemia Social History Household Members: Spouse Housing: House Smoking Status: Never smoker Second Hand Smoke Exposure: No Use of substances other than those prescribed or required for medical reasons: No Have you been hit, kicked, punched, or otherwise hurt by someone within the past year? If so, by whom?: No Do you feel safe in your current relationship?: Yes Is there a partner from a previous relationship who is making you feel unsafe now?: No Are you made to feel afraid or neglected: No Spiritual Healthcare Practices: no Advance Directives: No Advance Directives Information Provided: Yes Do you have thoughts of harming others: None Recently lost weight without trying: No Nutrition Risks: No Nutritional Risk Poor oral hygiene: No Meds Allergies Allergy/AdvReac Type Severity Reaction Status Date / Time clonazepam [Klonopin] Allergy Unknown Unknown Verified 05/06/20 12:51 No Known Allergies Allergy Unverified 03/12/20 15:06 Active Medications: Current Medications Generic Name Dose Route Start Last Admin Trade Name Freq PRN Reason Stop Dose Admin Acetaminophen 650 mg 11/01/20 00:52 Acetaminophen 325 Mg Tablet PO Q6H PRN Pain, Mild (Pain Scale 1-3) Atorvastatin Calcium 10 mg 11/01/20 21:00 Atorvastatin Calcium 10 Mg Tablet PO BEDTIME [facility] Docusate Sodium 100 mg 11/01/20 00:52 Docusate Sodium 100 Mg Capsule PO DAILY PRN Constipation Hydroxyzine HCl 25 mg 11/01/20 09:00 Hydroxyzine Hcl 25 Mg Tablet PO BID [facility] Morphine Sulfate 3 mg 11/01/20 02:08 11/01/20 02:31 Morphine Sulfate 4 Mg/Ml Cartridge IVPUSH 3 mg Q4H PRN Administration Pain, Severe (Pain Scale 7-10) Ondansetron HCl 4 mg 11/01/20 00:52 Ondansetron Hcl 4 Mg/2 Ml Vial IVPUSH Q8H PRN Nausea and Vomiting Pantoprazole Sodium 40 mg 11/01/20 06:30 11/01/20 05:17 Pantoprazole Sodium 40 Mg/10 Ml Vial IVPUSH 40 mg BID@0630,1630 [facility] Administration Pregabalin 300 mg 11/01/20 09:00 Pregabalin 150 Mg Capsule PO BID [facility] Sertraline HCl 100 mg 11/01/20 09:00 Sertraline Hcl 100 Mg Tablet PO DAILY [facility] Sodium Chloride 3 ml 11/01/20 08:00 0.9 % Sodium Chloride Flush 3 Ml [facility] Tramadol HCl 50 mg 11/01/20 00:52 Tramadol Hcl 50 Mg Tablet PO Q12H PRN Pain, Moderate (Pain Scale 4-6 Zolpidem Tartrate 5 mg 11/01/20 21:00 Zolpidem Tartrate 5 Mg Tablet PO BEDTIME [facility] Home Medications Medication Instructions Recorded Confirmed Last Taken Type naproxen 500 mg tablet 500 mg PO BID 05/06/20 10/31/20 Unknown History pregabalin 300 mg capsule 300 mg PO BID 05/06/20 10/31/20 Unknown History sertraline 100 mg tablet 100 mg PO DAILY 05/06/20 10/31/20 Unknown History simvastatin 20 mg tablet 20 mg PO BEDTIME 05/06/20 10/31/20 Unknown History zolpidem 12.5 mg tablet,extended 12.5 mg PO BEDTIME 05/06/20 10/31/20 Unknown History release,multiphase hydroxyzine HCl 1 tab PO BID 10/31/20 10/31/20 Unknown History loteprednol etabonate 1 drp OPHTHALMIC (EYE) BID 10/31/20 10/31/20 Unknown History tadalafil 1 tab PO DAILY PRN 10/31/20 10/31/20 Unknown History tramadol 1 tab PO Q12H PRN 10/31/20 10/31/20 Unknown History Physical Exam Vital Signs and Narrative: Vital Signs: Last Vital Signs Temp 97.9 F 11/01/20 05:19 Pulse 63 11/01/20 05:19 Resp 18 11/01/20 05:19 BP 112/57 L 11/01/20 05:19 Pulse Ox 95 11/01/20 03:25 Body Mass Index 33.5 Const: General: cooperative and no acute distress Orientation/consciousness: patient oriented x3 Eyes: General: appearance normal, both eyes and all related structures Resp: Effort & Inspection: normal respiratory effort and able to speak in complete sentences Cardio: Rate: regular rate Rhythm: regular rhythm GI: Palpation (GI): Soft to palpation Auscultation: normal bowel sounds Skin: General skin exam: no rashes or lesions noted Neuro: General: patient oriented x3 Cognition (Neuro): normal cognition Extrem: General: Yes normal to inspection and Yes no pedal edema Results Labs CBC and Chem 7: 10/31/20 21:23 10/31/20 19:31 Labs: Laboratory Results - last 24 hr 10/31/20 10/31/20 10/31/20 19:02 19:31 19:31 MCV 92.6 MCH 30.2 MCHC 32.6 RDW 14.2 Plt Count 202 MPV 11.0 Immature Gran % (Auto) 0.4 Neut % (Auto) 49.6 Lymph % (Auto) 37.5 [place] % (Auto) 9.5 Eos % (Auto) 2.4 Baso % (Auto) 0.6 Lymph # (Auto) 3.0 [place] # (Auto) 0.8 Eos # (Auto) 0.2 Baso # (Auto) 0.1 Abs Immat Gran (auto) 0.03 Absolute Neuts (auto) 4.0 Absolute Nucleated RBC 0.000 Nucleated RBC % (auto) 0.0 PT 12.4 INR 1.0 Anion Gap Estim Creat Clear Calc Estimated GFR Random Glucose Calcium Magnesium Total Bilirubin Direct Bilirubin AST ALT Alkaline Phosphatase Total Protein Albumin Lipase Stool Occult Blood POSITIVE COVID-19 (JACKLYN) COVID-19 [employer] Com Blood Type Antibody Screen Crossmatch 10/31/20 10/31/20 10/31/20 19:31 19:31 19:39 MCV MCH MCHC RDW Plt Count MPV Immature Gran % (Auto) Neut % (Auto) Lymph % (Auto) [place] % (Auto) Eos % (Auto) Baso % (Auto) Lymph # (Auto) [place] # (Auto) Eos # (Auto) Baso # (Auto) Abs Immat Gran (auto) Absolute Neuts (auto) Absolute Nucleated RBC Nucleated RBC % (auto) PT INR Anion Gap 11 L Estim Creat Clear Calc 98.0 Estimated GFR > 60 Random Glucose 105 Calcium 8.7 D Magnesium 2.1 Total Bilirubin 0.7 Direct Bilirubin 0.2 AST 26 ALT 46 H Alkaline Phosphatase 60 Total Protein 6.0 L Albumin 3.9 Lipase 25 Stool Occult Blood COVID-19 (JACKLYN) Negative COVID-[employer] Com See Note Blood Type A Positive Antibody Screen NEGATIVE Crossmatch See Detail 10/31/20 21:23 MCV 93.1 MCH 30.6 MCHC 32.9 RDW 14.3 Plt Count 229 MPV 11.3 Immature Gran % (Auto) 0.2 Neut % (Auto) 47.8 Lymph % (Auto) 39.7 [place] % (Auto) 9.5 Eos % (Auto) 2.1 Baso % (Auto) 0.7 Lymph # (Auto) 3.4 [place] # (Auto) 0.8 Eos # (Auto) 0.2 Baso # (Auto) 0.1 Abs Immat Gran (auto) 0.02 Absolute Neuts (auto) 4.1 Absolute Nucleated RBC 0.000 Nucleated RBC % (auto) 0.0 PT INR Anion Gap Estim Creat Clear Calc Estimated GFR Random Glucose Calcium Magnesium Total Bilirubin Direct Bilirubin AST ALT Alkaline Phosphatase Total Protein Albumin Lipase Stool Occult Blood COVID-19 (JACKLYN) COVID-[facility] Com Blood Type Antibody Screen Crossmatch Imaging Radiologist's Impressions: Impressions Abdomen/Pelvis CT 10/31/20 20:15 IMPRESSION: No evidence of hyperacute or delayed intraluminal contrast in the visualized bowel to suggest CT imaging findings of gastrointestinal bleeding. No acute pathology in the abdomen/pelvis. Normal caliber small and large bowel. Assessment and Plan (1) GI bleed: Status: Acute This 60-year-old male on Naprosyn for arthritis presents to the hospital with GI bleed # acute GI bleed - upper versus lower GI bleed - patient uses Naprosyn twice a day for over a year for history of arthritis - BUN is slightly elevated - hemoglobin stable - hemodynamically stable otherwise - at this time will start him on GoLYTELY as recommended by Gastroenterology - planned for endoscopy as well as colonoscopy in a.m. - hold naproxen # anxiety - continue hydroxyzine and sertraline # chronic pain - continue pregabalin, hold naprosyn and tramadol # HLD - continue statin DVT prophylaxis: SCDs
[2020-11-01] MEDS: PEG 3350/Na Sulf,Bicarb,Cl/KCL 4,000 ML SOLN.RECON 240 ML PO (07:17)
--- NOTE | 2020-11-01 07:46 | P.CNGI_ITS ---
History of Present Illness Data of Consult Service Date: 11/01/20 Requesting physician: Cesar Pepper Primary Care Provider: MD HOWARD Crandall Reason for consult: Lower GI bleeding 60-year-old male presented to [facility] ED yesterday evening with 2 day history of hematochezia. 60-year-old male with a past medical history of chronic back pain, anxiety, depression, high cholesterol here with complaints of rectal bleeding. The patient tells me yesterday he had 8 episodes of bright red blood in his stool and today he has had 3 episodes. No associated abdominal pain. No nausea, vomiting, fevers, chills. The patient has been taking naproxen twice daily for years due to chronic back pain. He denies any history of upper GI bleed or liver problems. He has a history of alcohol abuse but has been sober for 6 months. Prior to this he was drinking 20-30 nips of fireball every day for years . Labs showed H & H of 12.2 & 37.4 (decreased from baseline of 15.4 & 46.9 on 08/24 ) Repeat H & H after 2 hrs was 12 & 36.5 Patient was admitted and transfused 2 units of packed red blood cells overnight. Colyte prep was started early this morning and patient has taken 3/4 of the prep Repeat H&H this morning is 11.1 and 33.8 IMAGING STUDIES: 10/31/20 CT ANGIO SHOWED(PERSONALLY REVIEWED): No evidence of hyperacute or delayed intraluminal contrast in the visualized bowel to suggest CT imaging findings of gastrointestinal bleeding. No acute pathology in the abdomen/pelvis. Normal caliber small and large bowel. ENDOSCOPIC STUDIES: JUL, 2018 COLONOSCOPY WAS PERFORMED BY DR. RAMOS FOR COLON CANCER SCREENIN. A 1.5 cms tubular adenoma was removed from 30 cms 2. Minimal sigmoid diverticulosis. 3. Minimal internal hemorrhoids. Repeat colonoscopy was advised in 3 years Patient noted 8 episodes of burgundy-colored stools on 10/30/2020. Blood was initially mixed with stool followed by pure blood and dime-sized clots. He had 3 episodes yesterday prior to presenting to [facility] ED and an additional 8 episodes after arrival to [facility]. Pt denies symptoms of abdominal pain, dysphagia, nausea, vomiting, fever, chills, recent change in appetite or weight. He notes intermittent heartburn and intermittent constipation. Patient admits to taking naproxen twice daily for arthritis and back pain. Patient denies major cardiac or pulmonary problems. Denies problems with anesthesia in the past. Denies being on chronic anticoagulation. 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 Patient admits to heavy alcohol use in the past and has been abstinent for the past 6 months. He denies smoking. He has 4 sons and 6 grandchildren. Patient denies known family history of colon polyps, colon cancer or other GI malignancies. Mom with lung with ? brain mets. Dad had an aneurysm Review of Systems Constitutional: Constitutional: Denies fever(s), Denies headache(s) and Denies weight loss Eyes: Eyes: Denies eye discharge and Denies irritation ENT: Reports Normal hearing present, Denies dysphagia, Denies dizziness and Denies headache(s) Cardiovascular: Cardiovascular: Denies chest pain, Denies leg edema and Denies dyspnea on exertion Respiratory: Respiratory: Denies cough, Denies dyspnea on exertion and Denies wheezing Gastrointestinal: Gastrointestinal: Denies abdominal pain, Reports bloating, Reports hematochezia (Burgundy-colored stools), Reports change in bowel habits, Reports constipation, Denies dysphagia and Reports heartburn Genitourinary: Genitourinary: Denies dysuria Musculoskeletal: Musculoskeletal: Reports back pain and Reports arthralgias Integumentary/Breasts: Skin/Breast: Denies pruritus, Denies rash and Denies jaundice Neurologic: Reports Normal hearing present, Denies Abnormal speech present, Denies dizziness, Denies headache(s) and Denies seizure-like activity Psychiatric: Psychiatric: Denies anxiety, Reports depression and Denies panic attacks Endocrine: Endocrine: Denies cold intolerance, Denies flushing and Denies heat intolerance Hematologic/Lymphatic: Hematologic/Lymphatic: Denies easy bleeding and Denies easy bruising Allergic/Immunologic: Allergic/Immunologic: Denies wheezing PMFSH Past Medical History Medical History (Updated 03/15/21 @ 13:53 by Jeni Manuel RN) Arthritis Back pain COPD (chronic obstructive pulmonary disease) COVID-19 vaccine series completed Gastric ulcer Hypercholesterolemia FIDEL (obstructive sleep apnea) Peripheral neuropathy PUD (peptic ulcer disease) Family History Pertinent family history: Patient denies known family history of colon polyps, colon cancer or GI malignancy. Mom with lung cancer with brain Mets Dad had an in aneurysm. Surgical History Surgical History History of esophagogastroduodenoscopy (EGD) History of lumbar fusion Hx of colonoscopy Social History Social History Household Members: Spouse Housing: House Are you a primary post acute care nurse practitioner to a significant other at home: No Do you presently have visiting nurse or other home services: No Patient Tobacco Use Status: Former Tobacco user Quit Date: 11 yrs ago Tobacco use type: Cigarette Second Hand Smoke Exposure: No service: No Current occupational status: retired Meds Allergies Allergy/AdvReac Type Severity Reaction Status Date / Time clonazepam [Klonopin] Allergy Unknown Anxiety, Verified 03/15/21 13:52 adverse reaction Active Medications: Current Medications Generic Name Dose Route Start Last Admin Trade Name Freq PRN Reason Stop Dose Admin Acetaminophen 650 mg 11/01/20 00:52 Acetaminophen 325 Mg Tablet PO Q6H PRN Pain, Mild (Pain Scale 1-3) Atorvastatin Calcium 10 mg 11/01/20 21:00 Atorvastatin Calcium 10 Mg Tablet PO BEDTIME RO Docusate Sodium 100 mg 11/01/20 00:52 Docusate Sodium 100 Mg Capsule PO DAILY PRN Constipation Hydroxyzine HCl 25 mg 11/01/20 09:00 Hydroxyzine Hcl 25 Mg Tablet PO BID RO Morphine Sulfate 3 mg 11/01/20 02:08 11/01/20 02:31 Morphine Sulfate 4 Mg/Ml Cartridge IVPUSH 3 mg Q4H PRN Administration Pain, Severe (Pain Scale 7-10) Ondansetron HCl 4 mg 11/01/20 00:52 Ondansetron Hcl 4 Mg/2 Ml Vial IVPUSH Q8H PRN Nausea and Vomiting Pantoprazole Sodium 40 mg 11/01/20 06:30 11/01/20 05:17 Pantoprazole Sodium 40 Mg/10 Ml Vial IVPUSH 40 mg BID@0630,1630 RO Administration Pregabalin 300 mg 11/01/20 09:00 Pregabalin 150 Mg Capsule PO BID RO Sertraline HCl 100 mg 11/01/20 09:00 Sertraline Hcl 100 Mg Tablet PO DAILY RO Sodium Chloride 3 ml 11/01/20 08:00 0.9 % Sodium Chloride Flush 3 Ml Syringe IVFLUSH QSHIFT [facility] Tramadol HCl 50 mg 11/01/20 00:52 Tramadol Hcl 50 Mg Tablet PO Q12H PRN Pain, Moderate (Pain Scale 4-6 Zolpidem Tartrate 5 mg 11/01/20 21:00 Zolpidem Tartrate 5 Mg Tablet PO BEDTIME [facility] Home Medications Medication Instructions Recorded Confirmed Last Taken Type simvastatin 20 mg tablet 20 mg PO BEDTIME 05/06/20 03/15/21 Unknown History zolpidem 12.5 mg tablet,extended 12.5 mg PO BEDTIME 05/06/20 03/15/21 Unknown History release,multiphase hydroxyzine HCl 25 mg tablet 1 tab PO BID 10/31/20 03/15/21 Unknown History tramadol 50 mg tablet 1 tab PO Q12H PRN 10/31/20 03/15/21 Unknown History pregabalin 75 mg capsule 75 mg PO BID 02/04/21 03/15/21 Unknown History albuterol sulfate 90 mcg/actuation INHALATION 03/15/21 Unknown History aerosol inhaler (ProAir HFA) naloxone 4 mg/actuation nasal INTRANASAL 03/15/21 Unknown History spray (Narcan) tiotropium bromide 18 mcg capsule 1 puff INHALATION DAILY 03/15/21 03/15/21 Unknown History with inhalation device (Spiriva with HandiHaler) topiramate 25 mg tablet 1 - 2 tab PO BEDTIME 03/15/21 03/15/21 Unknown History Physical Exam Vital Signs: Vital Signs: Last Vital Signs Temp 97.2 F 11/01/20 07:38 Pulse 88 11/01/20 07:38 Resp 20 11/01/20 07:38 BP 113/68 11/01/20 07:38 Pulse Ox 95 11/01/20 07:38 Body Mass Index 33.5 Const: General: healthy appearing and no acute distress Nutritional Appearance: average body habitus Orientation/consciousness: patient oriented x3 Limitations: no limitations HENMT: Head: Yes normal to inspection Ears: hearing grossly normal bilaterally Mouth: Normal oral and palatal mucosa present Eyes: Sclerae: sclerae normal Pupils: Equal, round and reactive pupils present Neck: Neck: Yes normal visual inspection Chest: Chest palpation & inspection: normal inspection of the chest Resp: Effort & Inspection: normal respiratory effort Auscultation: clear to auscultation bilaterally Cardio: Palpation: normal PMI Rate: regular rate Rhythm: regular rhythm Heart sounds: S1 normal heart sound present, S2 normal heart sound present and no murmurs GI: Palpation (GI): Soft to palpation, nontender and No hepatosplenomegaly present Auscultation: normal bowel sounds Rectal Exam - Male: Yes deferred Skin: General skin exam: no rashes or lesions noted Neuro: General: patient oriented x3, gait normal and moves all extremities Cranial nerves: Yes Equal, round and reactive pupils present and Yes Normal hearing present Speech: No Abnormal speech present Psych: Appearance: grossly normal Mental Status: mental status grossly normal Results Labs CBC & Chem 7: 11/03/20 12:43 11/02/20 02:06 Labs: Short CBC 10/31/20 10/31/20 Range/Units 19:31 21:23 WBC 8.0 8.6 (4.8-10.8) X10*3/uL Hgb 12.2 L D 12.0 L (14.0-18.0) g/dl Hct 37.4 L D 36.5 L (42-52) % Plt Count 202 229 (160-400) X10*3/uL BMP 10/31/20 19:31 Sodium 141 Potassium 4.8 Chloride 109 H Carbon Dioxide 26 BUN 18 H Creatinine 0.98 Calcium 8.7 D Liver Function 10/31/20 Range/Units 19:31 Total Bilirubin 0.7 (0.0-1.0) mg/dL Direct Bilirubin 0.2 (0.0-0.5) mg/dL AST 26 (5-37) U/L ALT 46 H (0-40) U/L Alkaline Phosphatase 60 (39-117) U/L Albumin 3.9 (3.5-5.0) g/dL Assessment and Plan (1) GI bleed: Status: Resolved 60 YM with back pain and arthritis admitted with 2 day history of lower GI bleeding consisting of multiple episodes of burgundy colored stools with decreasing H&H despite transfusion of 2 units of packed red blood cells. Patient admits to taking naproxen twice daily for back pain. Colonoscopy 2 years ago showed mild sigmoid diverticulosis and a 1.5 cm adenomatous polyp was removed from the sigmoid colon. CT angio was negative for obvious site of bleeding. Pattern of bleeding is suggestive of a diverticular bleed. Other possibilities include upper GI source from peptic ulcer disease, colonic AVMs, large colon [place] yp. Colon cancer is less likely given recent colonoscopy 2 years ago. RECOMMENDATIONS: 1. Monitor H&H Q 6 hrly x 24 hrs and transfuse if H&H is below 10 & 30. 2. Continue IV PPI 3. Proceed with urgent upper endoscopy and colonoscopy today. Both procedures and potential complications including be bleeding, perforation, drug reaction and aspiration were reviewed with the patient. He would like to proceed.
[2020-11-01] MEDS: Sertraline HCL 100 MG TABLET PO (08:40)
[2020-11-01] MEDS: hydrOXYzine HCL 25 MG TABLET PO ×2 (08:40→20:58)
[2020-11-01] MEDS: Pregabalin 150 MG CAPSULE 300 MG PO ×2 (08:40→20:57)
[2020-11-01] MEDS: 0.9 % Sodium Chloride Flush 3 ML SYRINGE IVFLUSH ×3 (08:40→20:58)
[2020-11-01 09:26] LABS: Hematocrit 33.8 % (42-52); Hemoglobin 11.1 g/dl (14.0-18.0)
--- NOTE | 2020-11-01 09:59 | PM.EVENT ---
Event Note Date of Service: 11/01/20 Event Note: I saw and examined this patient and reviewed finding, he presents with rectal bleeding of unclear source. His baseline hemoglbin is 15 and dropped to 12 at which time he was transfused 2 more units because significan active bleeding, hemoglobin is now 11 and still had liquid blood stool this morning, he is hemodynamically stable at the moment. He is planned for coloscopy and if no source of bleed, he might need angiogram to locate souce of bleeding, this will require transfer to [facility]
[2020-11-01 12:31] LABS: Hematocrit 28.8 % (42-52); Hemoglobin 9.7 g/dl (14.0-18.0); Mean Corpuscular HGB Conc 33.7 g/dl (31.0-36.0); Mean Corpuscular Hemoglobin 30.9 pg (27.0-33.0); Mean Corpuscular Volume 91.7 fL (80-98); Mean Platelet Volume 10.6 fL (9.4-12.4); Platelet Count 159 X10*3/uL (160-400); Red Blood Count 3.14 X10*6/uL (4.60-5.80); Red Cell Distribution Width 14.5 % (11.0-16.0); White Blood Count 7.7 X10*3/uL (4.8-10.8)
--- NOTE | 2020-11-01 13:41 | P.CONAN_ITS ---
FORMERLY [facility], [facility] Active Problems Active Problems: All Active Problems (Updated 11/01/20 @ 06:38 by Shamika Rodriguez MD) GI bleed (Acute) Spontaneous ecchymosis (Acute) Lower gastrointestinal hemorrhage (Acute) Past Medical History Medical History Arthritis Back pain Hypercholesterolemia Social History Social History Household Members: Spouse Housing: House Smoking Status: Never smoker Second Hand Smoke Exposure: No Use of substances other than those prescribed or required for medical reasons: No Currently Displaying Signs/Symptoms of Drug Intoxication Withdrawal: No Have you been hit, kicked, punched, or otherwise hurt by someone within the past year? If so, by whom?: No Do you feel safe in your current relationship?: Yes Is there a partner from a previous relationship who is making you feel unsafe now?: No Are you made to feel afraid or neglected: No Spiritual Healthcare Practices: no Advance Directives: No Advance Directives Information Provided: Yes Do you have thoughts of harming others: None Do you have a plan to hurt others: No Plan Recently lost weight without trying: No Nutrition Risks: No Nutritional Risk Poor oral hygiene: No Meds Allergies Allergy/AdvReac Type Severity Reaction Status Date / Time clonazepam [Klonopin] Allergy Unknown Unknown Verified 05/06/20 12:51 No Known Allergies Allergy Unverified 03/12/20 15:06 Active Medications: Current Medications Generic Name Dose Route Start Last Admin Trade Name Freq PRN Reason Stop Dose Admin Acetaminophen 650 mg 11/01/20 00:52 Acetaminophen 325 Mg Tablet PO Q6H PRN Pain, Mild (Pain Scale 1-3) Atorvastatin Calcium 10 mg 11/01/20 21:00 Atorvastatin Calcium 10 Mg Tablet PO BEDTIME RO Docusate Sodium 100 mg 11/01/20 00:52 Docusate Sodium 100 Mg Capsule PO DAILY PRN Constipation Hydroxyzine HCl 25 mg 11/01/20 09:00 11/01/20 08:40 Hydroxyzine Hcl 25 Mg Tablet PO 25 mg BID RO Administration Morphine Sulfate 3 mg 11/01/20 02:08 11/01/20 02:31 Morphine Sulfate 4 Mg/Ml Cartridge IVPUSH 3 mg Q4H PRN Administration Pain, Severe (Pain Scale 7-10) Ondansetron HCl 4 mg 11/01/20 00:52 Ondansetron Hcl 4 Mg/2 Ml Vial IVPUSH Q8H PRN Nausea and Vomiting Pantoprazole Sodium 40 mg 11/01/20 06:30 11/01/20 05:17 Pantoprazole Sodium 40 Mg/10 Ml Vial IVPUSH 40 mg BID@0630,1630 RO Administration Pregabalin 300 mg 11/01/20 09:00 11/01/20 08:40 Pregabalin 150 Mg Capsule PO 300 mg BID RO Administration Sertraline HCl 100 mg 11/01/20 09:00 11/01/20 08:40 Sertraline Hcl 100 Mg Tablet PO 100 mg DAILY RO Administration Sodium Chloride 3 ml 11/01/20 08:00 11/01/20 08:40 0.9 % Sodium Chloride Flush 3 Ml Syringe IVFLUSH 3 ml QSHIFT RO Administration Tramadol HCl 50 mg 11/01/20 00:52 Tramadol Hcl 50 Mg Tablet PO Q12H PRN Pain, Moderate (Pain Scale 4-6 Zolpidem Tartrate 5 mg 11/01/20 21:00 Zolpidem Tartrate 5 Mg Tablet PO BEDTIME [facility] Home Medications Medication Instructions Recorded Confirmed Last Taken Type naproxen 500 mg tablet 500 mg PO BID 05/06/20 10/31/20 Unknown History pregabalin 300 mg capsule 300 mg PO BID 05/06/20 10/31/20 Unknown History sertraline 100 mg tablet 100 mg PO DAILY 05/06/20 10/31/20 Unknown History simvastatin 20 mg tablet 20 mg PO BEDTIME 05/06/20 10/31/20 Unknown History zolpidem 12.5 mg tablet,extended 12.5 mg PO BEDTIME 05/06/20 10/31/20 Unknown History release,multiphase hydroxyzine HCl 1 tab PO BID 10/31/20 10/31/20 Unknown History loteprednol etabonate 1 drp OPHTHALMIC (EYE) BID 10/31/20 10/31/20 Unknown History tadalafil 1 tab PO DAILY PRN 10/31/20 10/31/20 Unknown History tramadol 1 tab PO Q12H PRN 10/31/20 10/31/20 Unknown History Exam Exam Date and Time: November 01, 2020 1341 Height,Weight and Vital Signs: Height 5 ft 11 in Weight 108.862 kg Last Vital Signs Temp 97.8 F 11/01/20 12:00 Pulse 81 11/01/20 12:00 Resp 20 11/01/20 12:00 BP 117/62 11/01/20 12:00 Pulse Ox 97 11/01/20 12:00 Pertinent Lab Results Pertinent Lab Results: Laboratory Tests 10/31/20 10/31/20 10/31/20 19:02 19:31 19:31 WBC 8.0 RBC 4.04 L D Hgb 12.2 L D Hct 37.4 L D MCV 92.6 MCH 30.2 MCHC 32.6 RDW 14.2 Plt Count 202 MPV 11.0 Immature Gran % (Auto) 0.4 Neut % (Auto) 49.6 Lymph % (Auto) 37.5 [place] % (Auto) 9.5 Eos % (Auto) 2.4 Baso % (Auto) 0.6 Lymph # (Auto) 3.0 [place] # (Auto) 0.8 Eos # (Auto) 0.2 Baso # (Auto) 0.1 Abs Immat Gran (auto) 0.03 Absolute Neuts (auto) 4.0 Absolute Nucleated RBC 0.000 Nucleated RBC % (auto) 0.0 PT 12.4 INR 1.0 Sodium Potassium Chloride Carbon Dioxide Anion Gap BUN Creatinine Estim Creat Clear Calc Estimated GFR Random Glucose Calcium Magnesium Total Bilirubin Direct Bilirubin AST ALT Alkaline Phosphatase Total Protein Albumin Lipase Stool Occult Blood POSITIVE COVID-19 (JACKLYN) COVID-19 Clin Com Blood Type Antibody Screen Crossmatch 10/31/20 10/31/20 10/31/20 19:31 19:31 19:39 WBC RBC Hgb Hct MCV MCH MCHC RDW Plt Count MPV Immature Gran % (Auto) Neut % (Auto) Lymph % (Auto) [place] % (Auto) Eos % (Auto) Baso % (Auto) Lymph # (Auto) [place] # (Auto) Eos # (Auto) Baso # (Auto) Abs Immat Gran (auto) Absolute Neuts (auto) Absolute Nucleated RBC Nucleated RBC % (auto) PT INR Sodium 141 Potassium 4.8 Chloride 109 H Carbon Dioxide 26 Anion Gap 11 L BUN 18 H Creatinine 0.98 Estim Creat Clear Calc 98.0 Estimated GFR > 60 Random Glucose 105 Calcium 8.7 D Magnesium 2.1 Total Bilirubin 0.7 Direct Bilirubin 0.2 AST 26 ALT 46 H Alkaline Phosphatase 60 Total Protein 6.0 L Albumin 3.9 Lipase 25 Stool Occult Blood COVID-19 (JACKLYN) Negative COVID-19 Clin Com See Note Blood Type A Positive Antibody Screen NEGATIVE Crossmatch See Detail 10/31/20 11/01/20 11/01/20 21:23 09:17 12:24 WBC 8.6 7.7 RBC 3.92 L 3.14 L Hgb 12.0 L 11.1 L 9.7 L Hct 36.5 L 33.8 L 28.8 L MCV 93.1 91.7 MCH 30.6 30.9 MCHC 32.9 33.7 RDW 14.3 14.5 Plt Count 229 159 L D MPV 11.3 10.6 Immature Gran % (Auto) 0.2 Neut % (Auto) 47.8 Lymph % (Auto) 39.7 [place] % (Auto) 9.5 Eos % (Auto) 2.1 Baso % (Auto) 0.7 Lymph # (Auto) 3.4 [place] # (Auto) 0.8 Eos # (Auto) 0.2 Baso # (Auto) 0.1 Abs Immat Gran (auto) 0.02 Absolute Neuts (auto) 4.1 Absolute Nucleated RBC 0.000 0.000 Nucleated RBC % (auto) 0.0 0.0 PT INR Sodium Potassium Chloride Carbon Dioxide Anion Gap BUN Creatinine Estim Creat Clear Calc Estimated GFR Random Glucose Calcium Magnesium Total Bilirubin Direct Bilirubin AST ALT Alkaline Phosphatase Total Protein Albumin Lipase Stool Occult Blood COVID-19 (JACKLYN) COVID-19 Clin Com Blood Type Antibody Screen Crossmatch Airway Mallampati Class: II TM Dist: >3cm Neck ROM: Full Denture: Upper Loose/Missing/Broken Teeth: No Heart: RRR Lungs: CTA Assessment and Plan Assessment Anesthesia Assessment: Anesthesia Plan Discussed and Chart Reviewed Final Anesthetic Review NPO: Yes ASA Class: II Final Preanesthetic Review: No Changes in Pt Med Stat, Meds/Allgs Chart Reviewed, Consent Obtained/Reviewed and Anes Risks/Benef Reviewed Patient Risk: Low Procedure Risk: Low Anesthetic Plan Anesthetic Plan: MAC: Disposition: Standard PACU
--- NOTE | 2020-11-01 13:50 | P.OP_ITS ---
Operative Note Operative Note Date of Service: 11/01/20 Narrative: Pre-op diagnosis: GI Bleed Post-op diagnosis: other (Multiple gastric and duodenal ulcers, diverticulosis, hemorrhoids) Procedure: FLEXIBLE TRANSORAL UPPER GASTROINTESTINAL ENDOSCOPY WITH BIOPSIES AND COLONOSCOPY TILL CECUM UPPER ENDOSCOPY Consent: Indications for the procedure and potential complications of bleeding, perforation, reaction to medications and missed diagnosis were discussed with the patient and informed consent was obtained. Instrument: Olympus GIF H 190 mid size upper endoscope Monitoring: Vital signs and clinical assessment, continuous EKG monitoring, Pulse oximetry, Carbon Dioxide monitoring and blood pressure monitoring were done throughout the procedure. Procedure: The patient was placed in the left lateral decubitis position and pre-procedure medications were administered and a bite block was placed. The endoscope was inserted into the mouth and advanced under direct vision to the third part of duodenum. A careful inspection was made as the upper endoscope was withdrawn including a retroflexed examination of the proximal stomach; Findings and interventions are described below. Findings: Larynx: Normal Esophagus: GE junction at 40 cms. No esophagitis or Somers's. Stomach: Greenish bile in the stomach without blood. Multiple 1-2 cms chronic appearing ulcers in the gastric antrum - some with old clots. No active bleeding or high risk stigmata for bleeding noted. Antral biopsies were obtained to check for H Pylori. Grade 2 flap valve on retroflexed examination of the cardia. Duodenum: Multiple 5 to 10 mm chronic appearing non-bleeding ulcers noted in the bulb. Normal descending duodenum Intervention: Biopsies as noted above COLONOSCOPY PROCEDURE NOTE Consent: Indications for the procedure and potential complications of bleeding, perforation, reaction to medications and missed diagnosis were discussed with the patient and informed consent was obtained. Instrument: Olympus CF H 190 variable stiffness adult colonoscope Monitoring: Vital signs and clinical assessment, intermittent blood pressure monitoring, continuous EKG monitoring, Pulse oximetry and Carbon Dioxide monitoring were done throughout the procedure. Colon withdrawl time was 34 minutes. Procedure: The patient was placed in the left lateral decubitis position and pre-procedure medications were administered. After a digital rectal examination of the ano-rectum, the video colonoscope was inserted into the rectum and advanced through the colon to the cecum. The colonoscope was slowly withdrawn in a retrograde panoramic fashion and the colon mucosa was carefully examined including a retroflexed view of the rectum. Findings and interventions are described below. Procedure Difficulty: : LLQ pressure was applied to intubate the cecum Findings: Terminal Ileum: Distal 15 cms was examined and mucosa appeared normal. A few small clots noted in the distal TI - likely regurgitated from the colon. Cecum: Multiple non-bleeding medium sized diverticuli Ascending Colon: Multiple non-bleeding medium sized diverticuli Transverse Colon: Multiple non-bleeding medium sized diverticuli Descending Colon: Multiple non-bleeding medium to large sized diverticuli Sigmoid Colon: Multiple non-bleeding medium sized diverticuli Rectum: Normal Ano-rectum: Moderate non-bleeding internal hemorrhoids Colon preparation: Good after copious irrigation Impression and Post Procedure Diagnosis: Endoscopy Findings: STOMACH: Greenish bile in the stomach without blood. Multiple 1-2 cms chronic appearing ulcers in the gastric antrum - some with old clots - likely due to Naprosyn. No active bleeding or high risk stigmata for bleeding noted. Antral biopsies were obtained to check for H Pylori. DUODENUM: Multiple 5 to 10 mm chronic appearing non-bleeding ulcers noted in the bulb. Colonoscopy Findings: Polyps were detected Multiple non-bleeding medium to large sized diverticuli seen in the entire colon Moderate non-bleeding hemorrhoids on retroflexed exam. There was blood tinged fluid and scattered clots throughout the colon and no active bleeding was seen. LGI Bleed most likely diverticular - appears to have subsided. Plan: Await gastric pathology results. Start a full liquid diet and advance to regular diet in the am if no further bleeding. Change IV to PO PPI twice daily. Transfuse 2 units of PRBC and check H & H 2 hrs post transfusion and then every 8 hrs x next 24 hrs. If pt has recurrent bleeding, he can be transferred to [facility] for angiographic control of bleeding by IR. Repeat EGD in 3 months to confirm gastric ulcers have healed. Repeat Colonoscopy in 3 yrs due to a hx of colon polyps. Above findings were reviewed with the patient. Surgeon: Pauline Garcia MD Anesthesia: MAC (Dr Méndez) Was an Chainstitch Pants Outseamer used for this Procedure?: No Chainstitch Pants Outseamer: Lita Aceves Estimated blood loss (mL): 0 Pathology: other (A. Gastric antrum - rule out H pylori) Condition: stable Disposition: PACU
--- NOTE | 2020-11-01 14:29 | MHC.CM.PN ---
CM ATTEMPTED TO MEET WITH PT WHO IS OFF UNIT FOR PROCEDURE. CM TO REVISIT
--- NOTE | 2020-11-01 15:43 | MHC.CM.PN ---
CM MET WITH PT AND WHO WAS AT BEDSIDE. PT REPORTS HE LIVES AT HOME WITH AND IS FULLY INDEPENDENT WITH ALL CARE AND MOBILITY. PT DENIES THE USE OF DME OR HOME SERVICES. PT CONFIRMS HIS PCP IS MIRANDA BLUNT AND SAYS HE HAS A HCP COMPLETED NAMING HIS HIS AGENT. COPY REQUESTED. CURRENT DC PLAN IS HOME WITH NO SERVICES. PTS WILL TRANSPORT
[2020-11-01 15:58] LABS: Hematocrit 28.7 % (42-52); Hemoglobin 9.5 g/dl (14.0-18.0)
--- NOTE | 2020-11-01 18:40 | PC.NURSE ---
Patient having frequent maroon colored/liquid stool. Finished bowel prep around 1030. Patient underwent colonoscopy and endoscopy this afternoon, patient tolerated well. 1 unit RBCs infused, 2nd unit currently infusing.
[2020-11-01] MEDS: Atorvastatin Calcium 10 MG TABLET PO (20:58)
[2020-11-01] MEDS: Zolpidem Tartrate 5 MG TABLET PO (20:58)
[2020-11-01 22:33] LABS: Hematocrit 29.5 % (42-52); Hemoglobin 9.7 g/dl (14.0-18.0)
[2020-11-02] VITALS (11 sets, daily range): BP systolic 105–165; BP diastolic 57–81; PULSE 86–112; RESP 18–20; TEMP 37–38.1; O2SAT 85–97
[2020-11-02] MEDS: Morphine Sulfate 4 MG/ML CARTRIDGE 3 MG IVPUSH ×2 (00:02→05:52)
[2020-11-02 02:17] LABS: Hematocrit 30.5 % (42-52)
[2020-11-02 02:47] LABS: Anion Gap 10 (12-20); Blood Urea Nitrogen 12 mg/dL (9-16); Calcium 7.8 mg/dL (8.4-10.2); Carbon Dioxide 29 mmol/L (22-29); Chloride 110 mmol/L (96-108); Creatinine Clr Calc Pharmacy 121.6; Estimated Glomerular Filt Rate > 60; Glucose Random 101 mg/dL (60-115); Potassium 4.2 mmol/L (3.3-5.1); Sodium 145 mmol/L (135-145)
[2020-11-02] MEDS: Acetaminophen 325 MG TABLET 650 MG PO ×2 (04:02→20:05)
[2020-11-02] MEDS: Pantoprazole Sodium 40 MG/10 ML VIAL IVPUSH (05:42)
[2020-11-02] MEDS: ondansetron HCL 4 MG/2 ML VIAL IVPUSH ×2 (05:52→23:47)
[2020-11-02] MEDS: Pregabalin 150 MG CAPSULE 300 MG PO ×2 (07:29→20:05)
[2020-11-02] MEDS: Sertraline HCL 100 MG TABLET PO (07:30)
[2020-11-02] MEDS: hydrOXYzine HCL 25 MG TABLET PO ×2 (07:30→20:05)
[2020-11-02] MEDS: 0.9 % Sodium Chloride Flush 3 ML SYRINGE IVFLUSH ×3 (07:30→22:13)
[2020-11-02 08:37] LABS: Hematocrit 34.2 % (42-52); Hemoglobin 11.1 g/dl (14.0-18.0); Mean Corpuscular HGB Conc 32.5 g/dl (31.0-36.0); Mean Corpuscular Hemoglobin 30.1 pg (27.0-33.0); Mean Corpuscular Volume 92.7 fL (80-98); Mean Platelet Volume 11.3 fL (9.4-12.4); Platelet Count 179 X10*3/uL (160-400); Red Blood Count 3.69 X10*6/uL (4.60-5.80); Red Cell Distribution Width 14.3 % (11.0-16.0); White Blood Count 9.2 X10*3/uL (4.8-10.8)
--- NOTE | 2020-11-02 12:18 | P.CDIC_ITS ---
CDI Concurrent Query Service Date: 11/02/20 Documentation Clarification: Please clarify if you are treating a proba ble/suspected/likely or confirmed: Acute Blood Loss Anemia Anemia due to adverse effect of Naproxen use Other, please specify if known Acute Blood Loss Anemia Provider Response: Other Other Diagnosis: Acute Blood Loss Anemia PLEASE DO NOT DELETE/MODIFY EXISTING CONTENT Additional information is needed in order to code to the highest accuracy and appropriate Severity of Illness (SOI). Please clarify the information noted below in your progress notes and discharge summary. Risk Factors/Clinical Indicators/Treatments 60 year old male admitted with rectal bleed PMH: Alcohol Abuse, Sigmoid Diverticulosis Takes Naproxen BID for chronic back pain H/H on admit: 12.2/37.4 H/H on 11/01/20: 9.5/28.7 2 units blood transfused GI work up done CDS: Avani Posey RN Contact Number: [phone] Please Review the information above and exercise your independent professional judgment in responding to the query. If you concur, pleas document in the PROGRESS NOTES and DISCHARGE SUMMARY. If you do not agree with the query, please document in the query above. THIS QUERY IS PART OF THE PERMANENT MEDICAL RECORD
--- NOTE | 2020-11-02 12:47 | HO.PM.IMPN ---
Subjective Subjective Date of Service: 11/02/20 Interval History: seen and examined no bleeding reported ROS General - no fevers or chills Cardiovascular - no chest pain Respiratory - no shortness of breath or cough Abdominal- no abdominal pain, nausea, vomiting, diarrhea Physical Exam Vital Signs: Vital Signs: Last Vital Signs Temp 98.9 F 11/02/20 11:59 Pulse 100 11/02/20 11:59 Resp 18 11/02/20 11:59 BP 113/59 L 11/02/20 11:59 Pulse Ox 93 11/02/20 11:59 Body Mass Index 33.5 Const: Other: General - no acute distress, appears comfortable Cardiovascular - regular rate and rhythm, S1-S2 Lungs - normal respiratory effort, clear to auscultation bilaterally, no wheezing Abdomen - soft, nontender, no rebound or guarding Extremities - no edema bilaterally Neuro - awake and alert, no focal deficits Objective Data Current Medications Generic Name Dose Route Start Last Admin Trade Name Freq PRN Reason Stop Dose Admin Acetaminophen 650 mg 11/01/20 00:52 11/02/20 04:02 Acetaminophen 325 Mg Tablet PO 650 mg Q6H PRN Administration Pain, Mild (Pain Scale 1-3) Atorvastatin Calcium 10 mg 11/01/20 21:00 11/01/20 20:58 Atorvastatin Calcium 10 Mg Tablet PO 10 mg BEDTIME RO Administration Docusate Sodium 100 mg 11/01/20 00:52 Docusate Sodium 100 Mg Capsule PO DAILY PRN Constipation Fentanyl 25 mcg 11/01/20 13:46 Fentanyl Citrate/Pf 100 Mcg/2 Ml Vial IVPUSH Q5M PRN Pain, Moderate (Pain Scale 4-6 Hydroxyzine HCl 25 mg 11/01/20 09:00 11/02/20 07:30 Hydroxyzine Hcl 25 Mg Tablet PO 25 mg BID RO Administration Promethazine HCl 12.5 mg/ 50.5 mls @ 202 mls/hr 11/01/20 13:46 Sodium Chloride IV ONCE PRN Nausea and Vomiting Morphine Sulfate 3 mg 11/01/20 02:08 11/02/20 05:52 Morphine Sulfate 4 Mg/Ml Cartridge IVPUSH 3 mg Q4H PRN Administration Pain, Severe (Pain Scale 7-10) Omeprazole 40 mg 11/02/20 16:30 Omeprazole 40 Mg Capsule.Dr PO BID@0630,1630 RO Ondansetron HCl 4 mg 11/01/20 00:52 11/02/20 05:52 Ondansetron Hcl 4 Mg/2 Ml Vial IVPUSH 4 mg Q8H PRN Administration Nausea and Vomiting Ondansetron HCl 4 mg 11/01/20 13:46 Ondansetron Hcl 4 Mg/2 Ml Vial IVPUSH ONCE PRN Nausea and Vomiting Pregabalin 300 mg 11/01/20 09:00 11/02/20 07:29 Pregabalin 150 Mg Capsule PO 300 mg BID RO Administration Sertraline HCl 100 mg 11/01/20 09:00 11/02/20 07:30 Sertraline Hcl 100 Mg Tablet PO 100 mg DAILY RO Administration Sodium Chloride 3 ml 11/01/20 08:00 11/02/20 07:30 0.9 % Sodium Chloride Flush 3 Ml Syringe IVFLUSH 3 ml QSHIFT RO Administration Tramadol HCl 50 mg 11/01/20 00:52 Tramadol Hcl 50 Mg Tablet PO Q12H PRN Pain, Moderate (Pain Scale 4-6 Zolpidem Tartrate 5 mg 11/01/20 21:00 11/01/20 20:58 Zolpidem Tartrate 5 Mg Tablet PO 5 mg BEDTIME RO Administration Labs CBC & Chem 7: 11/02/20 08:01 11/02/20 02:06 Assessment and Plan (1) GI bleed: Status: Acute Assessment and Plan: This 60-year-old male on Naprosyn for arthritis presents to the hospital with GI bleed 1. Acute GI bleed and acute blood loss anemia (multiple possible sources of bleeding -- see GI note) s/p multiple PRBCS change IV PPI to oral continue monitoring h/h q8-12 hours d/w Dr. Garcia -- given the degree of his bleed -- he needs to be monitored in the hospital for 24 more hours 2. Hypoxia due to atelctasis incentive lachelle wean off RA 3. anxiety continue hydroxyzine and sertraline 4. chronic pain continue pregabalin, hold naprosyn and tramadol 5. HLD continue statin Full Code DVT pptx, SCD
[2020-11-02] MEDS: oxyCODONE HCl Immed Release 5 MG TABLET 10 MG PO (14:02)
--- NOTE | 2020-11-02 14:25 | MHC.CM.PN ---
pper rounds pt expected to dc today
[2020-11-02 15:20] LABS: Hematocrit 31.4 % (42-52); Hemoglobin 10.4 g/dl (14.0-18.0)
[2020-11-02] MEDS: Omeprazole 40 MG CAPSULE.DR PO (15:40)
[2020-11-02] MEDS: Atorvastatin Calcium 10 MG TABLET PO (20:06)
[2020-11-02] MEDS: Zolpidem Tartrate 5 MG TABLET PO (22:10)
[2020-11-03] VITALS (12 sets, daily range): BP systolic 91–126; BP diastolic 48–63; PULSE 66–102; RESP 18; TEMP 36.2–36.9; O2SAT 87–97
[2020-11-03] MEDS: oxyCODONE HCl Immed Release 5 MG TABLET 10 MG PO ×4 (00:13→22:23)
[2020-11-03 01:03] LABS: Glucose, Whole Blood 166 mg/dL (60-115)
--- NOTE | 2020-11-03 01:29 | PC.NURSE ---
Patient complaining of splitting 8/10 headache, chronic back pain, and nausea. Patient appears diaphoretic, oral temp of 100.5. O2 85% on RA, patient does not feel SOB. Gave patient PRN Tylenol 650mg and PRN Oxy 10mg. PRN Zofran 4mg given for nausea. Placed patient on 2L NC and continuous O2 monitor. O2 97% on 2L NC. Normal sinus rhythm on tele. Took blood sugar, 166. Patient states he had a similar presentation yesterday night.
[2020-11-03 04:57] LABS: Hematocrit 28.5 % (42-52); Hemoglobin 9.5 g/dl (14.0-18.0)
[2020-11-03] MEDS: Omeprazole 40 MG CAPSULE.DR PO ×2 (05:47→17:05)
--- NOTE | 2020-11-03 08:33 | HO.POSTANES ---
Post Anesthesia Evaluation Post Anesthesia Evaluation Vital Signs: Vital Signs Temp Pulse Resp BP Pulse Ox 11/03/20 07:47 97.3 F 66 18 113/62 97 11/03/20 03:44 98.1 F 88 18 114/63 96 11/03/20 01:25 97 11/02/20 23:37 100.5 F H 105 H 18 142/66 H 85 L Anesthesia: Monitored Mental Status: Awake Pain Control: Satisfactory Nausea/Vomiting: None Hydration: Adequate Anesthesia-Related Issues: No Anes. Related Issues
[2020-11-03] MEDS: 0.9 % Sodium Chloride Flush 3 ML SYRINGE IVFLUSH ×3 (09:45→20:34)
[2020-11-03] MEDS: Sertraline HCL 100 MG TABLET PO (09:45)
[2020-11-03] MEDS: Pregabalin 150 MG CAPSULE 300 MG PO ×2 (09:45→20:34)
[2020-11-03] MEDS: hydrOXYzine HCL 25 MG TABLET PO ×2 (09:45→20:34)
--- NOTE | 2020-11-03 10:56 | HO.PM.IMPN ---
Subjective Subjective Date of Service: 11/03/20 Interval History: seen and examined this AM no bleeding reported, but hasnt moved his bowels yet denies SOB bedside, updates given ROS General - no fevers or chills Cardiovascular - no chest pain Respiratory - no shortness of breath or cough Abdominal- no abdominal pain, nausea, vomiting, diarrhea Physical Exam Vital Signs: Vital Signs: Last Vital Signs Temp 97.3 F 11/03/20 07:47 Pulse 66 11/03/20 07:47 Resp 18 11/03/20 07:47 BP 113/62 11/03/20 07:47 Pulse Ox 97 11/03/20 07:47 Body Mass Index 33.5 Const: Other: General - no acute distress, appears comfortable Cardiovascular - regular rate and rhythm, S1-S2 Lungs - normal respiratory effort, clear to auscultation bilaterally, no wheezing Abdomen - soft, nontender, no rebound or guarding Extremities - no edema bilaterally Neuro - awake and alert, no focal deficits Objective Data Current Medications Generic Name Dose Route Start Last Admin Trade Name Leftyq PRN Reason Stop Dose Admin Acetaminophen 650 mg 11/01/20 00:52 11/02/20 20:05 Acetaminophen 325 Mg Tablet PO 650 mg Q6H PRN Administration Pain, Mild (Pain Scale 1-3) Atorvastatin Calcium 10 mg 11/01/20 21:00 11/02/20 20:06 Atorvastatin Calcium 10 Mg Tablet PO 10 mg BEDTIME RO Administration Docusate Sodium 100 mg 11/01/20 00:52 Docusate Sodium 100 Mg Capsule PO DAILY PRN Constipation Hydroxyzine HCl 25 mg 11/01/20 09:00 11/03/20 09:45 Hydroxyzine Hcl 25 Mg Tablet PO 25 mg BID RO Administration Omeprazole 40 mg 11/02/20 16:30 11/03/20 05:47 Omeprazole 40 Mg Capsule. PO 40 mg BID@0630,3530 RO Administration Ondansetron HCl 4 mg 11/01/20 00:52 11/02/20 23:47 Ondansetron Hcl 4 Mg/2 Ml Vial IVPUSH 4 mg Q8H PRN Administration Nausea and Vomiting Oxycodone HCl 5 mg 11/02/20 13:49 Oxycodone Hcl Immed Release 5 Mg Tablet PO Q4H PRN Pain, Moderate (Pain Scale 4-6 Oxycodone HCl 10 mg 11/02/20 13:49 11/03/20 09:52 Oxycodone Hcl Immed Release 5 Mg Tablet PO 10 mg Q6H PRN Administration Pain, Severe (Pain Scale 7-10) Pregabalin 300 mg 11/01/20 09:00 11/03/20 09:45 Pregabalin 150 Mg Capsule PO 300 mg BID RO Administration Sertraline HCl 100 mg 11/01/20 09:00 11/03/20 09:45 Sertraline Hcl 100 Mg Tablet PO 100 mg DAILY RO Administration Sodium Chloride 3 ml 11/01/20 08:00 11/03/20 09:45 0.9 % Sodium Chloride Flush 3 Ml Syringe IVFLUSH 3 ml QSHIFT RO Administration Tramadol HCl 50 mg 11/01/20 00:52 Tramadol Hcl 50 Mg Tablet PO Q12H PRN Pain, Moderate (Pain Scale 4-6 Zolpidem Tartrate 5 mg 11/01/20 21:00 11/02/20 22:10 Zolpidem Tartrate 5 Mg Tablet PO 5 mg BEDTIME RO Administration Labs CBC & Chem 7: 11/03/20 04:10 11/02/20 02:06 Assessment and Plan (1) GI bleed: Status: Acute Assessment and Plan: This 60-year-old male on Naprosyn for arthritis presents to the hospital with GI bleed 1. Acute GI bleed and acute blood loss anemia (multiple possible sources of bleeding -- see GI note) s/p multiple PRBCS h/h slowly trickling down but no bleeding reported -- d/w Dr. Garcia, if h/h stable this afternoon, okay to d/c from GI perspective. oral PPI d/w Dr. Garcia -- given the degree of his bleed -- he needs to be monitored in the hospital for 24 more hours 2. Hypoxia (mostly at night) / COPD (not formally diagnsoed yet, but had PFTs last month suggesting this) 2a. Probable undiagnosed FIDEL cxr without any pneumonia, has some atelectasis - ISS DuoNebs x 1 to see if this helps will need Pulmonology referral as outpatient if hypoxia persists, will need further work up / treatment in house 3. anxiety continue hydroxyzine and sertraline 4. chronic pain continue pregabalin, hold naprosyn and tramadol 5. HLD continue statin Full Code DVT pptx, SCD dispo: likely home this afternoon if hypoxia resolves and h/h stable
[2020-11-03] MEDS: Albuterol/Iprat 2.5/0.5MG 3 ML AMPUL.NEB INHALE ×3 (12:34→19:49)
--- NOTE | 2020-11-03 12:34 | PC.RT ---
Pt desat on room air sitting at bedside to 86-98%. returned to 2L NC. RN aware
[2020-11-03 13:04] LABS: Hematocrit 31.8 % (42-52); Hemoglobin 10.3 g/dl (14.0-18.0)
[2020-11-03] MEDS: Atorvastatin Calcium 10 MG TABLET PO (20:34)
[2020-11-03] MEDS: Zolpidem Tartrate 5 MG TABLET PO (22:21)
[2020-11-04] VITALS (8 sets, daily range): BP systolic 100–119; BP diastolic 62–75; PULSE 72–129; RESP 18–19; TEMP 36.6–37; O2SAT 88–99
[2020-11-04] MEDS: oxyCODONE HCl Immed Release 5 MG TABLET PO (06:23)
[2020-11-04] MEDS: Omeprazole 40 MG CAPSULE.DR PO (06:26)
[2020-11-04] MEDS: Albuterol/Iprat 2.5/0.5MG 3 ML AMPUL.NEB INHALE ×2 (07:38→11:25)
[2020-11-04] MEDS: hydrOXYzine HCL 25 MG TABLET PO (08:31)
[2020-11-04] MEDS: oxyCODONE HCl Immed Release 5 MG TABLET 10 MG PO (08:31)
[2020-11-04] MEDS: Pregabalin 150 MG CAPSULE 300 MG PO (08:31)
[2020-11-04] MEDS: Sertraline HCL 100 MG TABLET PO (08:31)
[2020-11-04] MEDS: 0.9 % Sodium Chloride Flush 3 ML SYRINGE IVFLUSH (08:32)
--- NOTE | 2020-11-04 10:06 | PM.DS ---
DS: Providers Provider Date of Service: 11/04/20 Date of admission: 11/01/20 00:41 Primary care physician: Marcos Stevenson MD DS: Diagnosis Discharge Diagnosis (1) GI bleed: Status: Acute (2) Acute blood loss anemia: Status: Acute (3) Hypoxia: Status: Acute (4) COPD (chronic obstructive pulmonary disease): Status: Acute DS: Medications Discharge Medications Home Medications: Home Medications Medication Instructions Recorded Confirmed pregabalin 300 mg capsule 300 mg PO BID 05/06/20 10/31/20 sertraline 100 mg tablet 100 mg PO DAILY 05/06/20 10/31/20 simvastatin 20 mg tablet 20 mg PO BEDTIME 05/06/20 10/31/20 zolpidem 12.5 mg tablet,extended 12.5 mg PO BEDTIME 05/06/20 10/31/20 release,multiphase hydroxyzine HCl 1 tab PO BID 10/31/20 10/31/20 loteprednol etabonate 1 drp OPHTHALMIC (EYE) BID 10/31/20 10/31/20 tadalafil 1 tab PO DAILY PRN 10/31/20 10/31/20 tramadol 1 tab PO Q12H PRN 10/31/20 10/31/20 Previous Rx's Medication Instructions Recorded ipratropium-albuterol 3 ml INHALATION RQ4H WHILE AWAKE 11/04/20 #120 ml omeprazole 40 mg PO BID@0630,1630 #60 cap 11/04/20 oxycodone 5 mg PO Q4H PRN #30 tab 11/04/20 tiotropium bromide [Spiriva with 18 mcg INHALATION RDAILY #30 inh 11/04/20 HandiHaler] DS: Summary Hospital Course Hospital Course: Patient presented with acute gastrointestinal bleeding requiring multiple units of packed red cell transfusion. He ultimately underwent upper endoscopy as well as colonoscopy. No active bleeding was noted but multiple sources of potential bleeds were found: Endoscopy Findings: STOMACH: Greenish bile in the stomach without blood. Multiple 1-2 cms chronic appearing ulcers in the gastric antrum - some with old clots - likely due to Naprosyn. No active bleeding or high risk stigmata for bleeding noted. Antral biopsies were obtained to check for H Pylori. DUODENUM: Multiple 5 to 10 mm chronic appearing non-bleeding ulcers noted in the bulb. Colonoscopy Findings: Polyps were detected Multiple non-bleeding medium to large sized diverticuli seen in the entire colon Moderate non-bleeding hemorrhoids on retroflexed exam. There was blood tinged fluid and scattered clots throughout the colon and no active bleeding was seen. LGI Bleed most likely diverticular - appears to have subsided. Gastroenterology recommended oral PPI twice a day and a repeat endoscopy in 3 months to confirm gastric ulcers have healed. A repeat colonoscopy was also recommended in 3 years due to colonic polyps. Patient's H&H was monitored post procedure and remained stable with no active signs of acute blood loss. Patient's hospital course was further complicated by hypoxia. He was treated with supplemental oxygen and a review of this chart revealed that he had outpatient PFTs consistent with COPD. Pneumonia was ruled out with negative chest x-ray x2. He was given bronchodilators and was tested for home oxygen for which he qualified: 2L @ rest and 4L with exertion. He will also be referred to Pulmonary as an outpatient. Time Spent with Patient Time attestation: Total time spent providing and/or coordinating discharge services: Discharge coordination time: Greater than 30 minutes Physical Exam Vital Signs: Vital Signs: Last Vital Signs Temp 97.8 F 11/04/20 07:35 Pulse 83 11/04/20 07:38 Resp 19 11/04/20 07:35 BP 118/75 11/04/20 07:35 Pulse Ox 90 L 11/04/20 09:17 Body Mass Index 33.5 Const: Other: General - no acute distress, appears comfortable Cardiovascular - regular rate and rhythm, S1-S2 Lungs - normal respiratory effort, clear to auscultation bilaterally, no wheezing Abdomen - soft, nontender, no rebound or guarding Extremities - no edema bilaterally Neuro - awake and alert, no focal deficits DS: Data Data Completed and Pending Completed studies during hospitalization [Text1]: Pending at discharge 11/01/20 14:24 Surgical [PTH] Routine Labs on day of discharge: Laboratory Results - last 24 hr 11/03/20 12:43 Hgb 10.3 L Hct 31.8 L Discharge Plan Discharge Patient Disposition: Home, Self-Care Discharge Diagnosis: GI Bleed Referrals: Marcos Amaral MD [Primary Care Provider] - 1 Week Pauline Garcia MD [Physician] - 2 Months (Call office for follow up) Regulo Alatorre MD [Physician] - 1 Week Discharge Medications: New omeprazole 40 mg Capsule,Delayed Release(Dr/Ec) 40 mg PO BID@0630,1630 Qty: 60 RF: 1 oxycodone 5 mg Tablet 5 mg PO Q4H PRN (Reason: Pain, Moderate (Pain Scale 4-6) Qty: 30 RF: 0 Spiriva with HandiHaler 18 mcg Capsule, W/Inhalation Device 18 mcg inhalation RDAILY Qty: 30 RF: 0 ipratropium-albuterol 0.5 mg-3 mg(2.5 mg base)/3 mL Solution For Nebulization 3 ml inhalation RQ4H WHILE AWAKE Qty: 120 RF: 0 Continued tramadol 50 mg tablet 1 tab PO Q12H PRN (Reason: pain) RF: 0 hydroxyzine HCl 25 mg tablet 1 tab PO BID RF: 0 loteprednol etabonate 0.5 % drops,suspension 1 drp ophthalmic (eye) BID RF: 0 tadalafil 10 mg tablet 1 tab PO DAILY PRN (Reason: Sexual Activity) RF: 0 simvastatin 20 mg tablet 20 mg PO BEDTIME RF: 0 pregabalin 300 mg capsule 300 mg PO BID RF: 0 zolpidem 12.5 mg tablet,ext release multiphase 12.5 mg PO BEDTIME RF: 0 sertraline 100 mg tablet 100 mg PO DAILY RF: 0 Discontinued naproxen 500 mg tablet 500 mg PO BID RF: 0 Discharge Orders: Discharge Order (Routine); Ordered 11/04/20 Ordered By: Vishal Heller Diet: advance to usual diet Activity on Discharge: As tolerated Stand Alone Forms: Patient Portal Discharge page Care Plan Goals: To stay healthy and out of the hospital. Health Concerns: GI bleed, gastric uclers COPD, Low oxygen Plan of Treatment: GI bleed, gastric uclers - Take Prilosec 40mg twice daily, Follow up with Dr. Garcia. Do not take any NSAIDS. COPD, Low oxygen - Take Spiriva and DuoNebs, call Pulmonary clinic to follow up with them Assessment: 60 yo male admitted for acute GI bleed. Diagnosed with gastric ulcers, polyps, hemorrhoids, diverticulum. Also noted to be hypoxia (without wheezing). Recent outpatient PFTs consistent with COPD. Started on Spiriva and DuoNebs. Tested for home O2 for which he qualified for: 2L @ rest and 4L with exertion. Will be given a Pulmonary referral.
--- NOTE | 2020-11-04 12:22 | MHC.CM.PN ---
pt dcd home no skilled servceis orderd by
== END 2020-11-04 13:20 | disposition home or self-care (01) | DRG 241 ==
LOC: HO.ED 20:33 → HO.IMC 11-01 00:51
PROVIDERS: Internal Medicine; Internal Medicine Gastroenterology; Nurse Practitioner Family; Admitting Provider Internal Medicine; Emergency Provider Emergency Medicine; PCP Internal Medicine; Visit Provider Family Medicine
PROC: 0DB78ZX Excision of Stomach, Pylorus, Via Natural or Artificial Opening Endoscopic, Diagnostic (ICD-10-PCS; principal; 2020-11-01 12:30)
DX: K25.4 Chronic or unspecified gastric ulcer with hemorrhage (principal); K57.31 Diverticulosis of large intestine without perforation or abscess with bleeding; D62 Acute posthemorrhagic anemia; E78.5 Hyperlipidemia, unspecified; G89.29 Other chronic pain; K64.8 Other hemorrhoids; K26.4 Chronic or unspecified duodenal ulcer with hemorrhage; R09.02 Hypoxemia; J98.11 Atelectasis; J44.9 Chronic obstructive pulmonary disease, unspecified; F41.9 Anxiety disorder, unspecified; Z20.822 Contact with and (suspected) exposure to COVID-19; Z79.891 Long term (current) use of opiate analgesic; Z79.899 Other long term (current) drug therapy
CPT/HCPCS: 36415; 71046; 74178; 80048; 80076; 82272; 82947; 83690; 83735; 85014; 85018; 85025; 85027; 85610; 86850; 86900; 86901; 86923; 87635; 88305; 88342; 93005; 96361; 96374; 99285; J2270; J2405; J3010; P9016; Q9967

== ENCOUNTER → 2020-11-12 09:13 | Outpatient (BNVA) | payer OTHER, SELFPAY | PROVIDERS: PCP Internal Medicine; Visit Provider Internal Medicine Pulmonary Disease ==

== ENCOUNTER → 2020-12-02 08:59 | Outpatient (REF) | payer OTHER, SELFPAY | LOC: HO.SL 08:59 | PROVIDERS: PCP Internal Medicine; Visit Provider Internal Medicine Pulmonary Disease | DX: G47.33 Obstructive sleep apnea (adult) (pediatric) (principal) | CPT/HCPCS: 95806 ==

== ENCOUNTER → 2020-12-29 10:42 | Outpatient (BNVA) | payer OTHER, SELFPAY | PROVIDERS: PCP Internal Medicine; Visit Provider Internal Medicine Pulmonary Disease ==

== ENCOUNTER → 2021-02-04 07:56 | Outpatient (BNVA) | payer OTHER, SELFPAY | PROVIDERS: PCP Internal Medicine; Visit Provider Internal Medicine Gastroenterology ==

== ENCOUNTER 2021-03-03 09:42 | Outpatient (REF) | payer OTHER, SELFPAY ==
--- NOTE | ~2021-03-03 | XR_ITS ---
EXAMINATION: XR SHOULDER, RIGHT CLINICAL INFORMATION: Bursitis of right shoulder. COMPARISON: None TECHNIQUE: AP external rotation, Grashey, scapular Y, and axillary views of the right shoulder. FINDINGS: There is mild loss of glenohumeral joint space but no bony erosive changes, loose bodies or spurring seen. The AC joint is intact. The soft tissues are normal. XR/XR shoulder RT min 2V IMPRESSION: Mild degenerative changes right glenohumeral joint. No acute fracture or dislocation seen.
== END 2021-03-03 09:43 | disposition home or self-care (01) ==
LOC: HO.XRAY 09:42
PROVIDERS: PCP Internal Medicine; Visit Provider Internal Medicine Addiction Medicine
DX: M75.51 Bursitis of right shoulder (principal)
CPT/HCPCS: 73030

== ENCOUNTER 2021-03-19 08:04 | Day surgery (SDC) | payer OTHER, SELFPAY ==
[2021-03-15 13:47] VITALS: BMI 33.5
--- NOTE | 2021-03-18 10:15 | P.CONAN_ITS ---
Documented by User: Marian Mock NP 03/18/21 10:17 HPI - Anesthesia Eval Consult details Narrative: 60yo M for Upper Endoscopy s/p EGD and [place] 10/2020 with MAC ([facility] admit with GIB) [facility] Active Problems Active Problems: All Active Problems (Updated 03/15/21 @ 13:53 by Jeni Manuel, RN) Spontaneous ecchymosis (Acute) Acute blood loss anemia (Acute) COPD (chronic obstructive pulmonary disease) (Acute) Hypoxia (Acute) FIDEL (obstructive sleep apnea) (Acute) Supplemental oxygen dependent (Acute) Peptic ulcer disease (Acute) Diverticulosis (Acute) History of colon polyps (Acute) Joint pain (Acute) Past Medical History Medical History (Updated 03/15/21 @ 13:53 by Jeni Manuel RN) Arthritis Back pain COPD (chronic obstructive pulmonary disease) COVID-19 vaccine series completed Gastric ulcer Hypercholesterolemia FIDEL (obstructive sleep apnea) Peripheral neuropathy PUD (peptic ulcer disease) Surgical History Surgical History History of esophagogastroduodenoscopy (EGD) History of lumbar fusion Hx of colonoscopy Social History Social History Household Members: Spouse Housing: House Are you a primary healthcare administrator to a significant other at home: No Do you presently have visiting nurse or other home services: No Patient Tobacco Use Status: Former Tobacco user Quit Date: 11 yrs ago Tobacco use type: Cigarette Second Hand Smoke Exposure: No Have you been hit, kicked, punched, or otherwise hurt by someone within the past year? If so, by whom?: No Are you DNR?: No Advance Directives: No Advance Directives Information Provided: No Advance Directives on File: No Recently lost weight without trying: No Eating poorly because of decreased appetite: No Nutrition Risks: No Nutritional Risk service: No Current occupational status: retired Meds Allergies Allergy/AdvReac Type Severity Reaction Status Date / Time clonazepam [Klonopin] Allergy Unknown Anxiety, Verified 03/15/21 13:52 adverse reaction Home Medications Medication Instructions Recorded Confirmed Last Taken Type simvastatin 20 mg tablet 20 mg PO BEDTIME 05/06/20 03/15/21 Unknown History zolpidem 12.5 mg tablet,extended 12.5 mg PO BEDTIME 05/06/20 03/15/21 Unknown History release,multiphase hydroxyzine HCl 25 mg tablet 1 tab PO BID 10/31/20 03/15/21 Unknown History tramadol 50 mg tablet 1 tab PO Q12H PRN 10/31/20 03/15/21 Unknown History pregabalin 75 mg capsule 75 mg PO BID 02/04/21 03/15/21 Unknown History albuterol sulfate 90 mcg/actuation INHALATION 03/15/21 Unknown History aerosol inhaler (ProAir HFA) naloxone 4 mg/actuation nasal INTRANASAL 03/15/21 Unknown History spray (Narcan) tiotropium bromide 18 mcg capsule 1 puff INHALATION DAILY 03/15/21 03/15/21 Unknown History with inhalation device (Spiriva with HandiHaler) topiramate 25 mg tablet 1 - 2 tab PO BEDTIME 03/15/21 03/15/21 Unknown History Exam Exam Date and Time: March 18, 2021 1015 Height,Weight and Vital Signs: Height 5 ft 11 in Weight 108.862 kg Narrative Narrative: EKG 10/2020 Vent. Rate : 071 BPM ? ? Atrial Rate : 071 BPM ?? P-R Int : 150 ms? QRS Dur : 088 ms ? ? QT Int : 380 ms ? ? ? P-R-T Axes : 061 -31 030 degrees ?? QTc Int : 412 ms ? Normal sinus rhythm Left axis deviation Borderline ECG When compared with ECG of 30-JUL-2009 06:32, T wave amplitude has decreased in Anterior leads Assessment and Plan Assessment Anesthesia Assessment: Chart Reviewed Documented by User: Shana Del Rio MD 03/19/21 08:33 [facility] Past Medical History Medical History (Updated 03/15/21 @ 13:53 by Jeni Manuel RN) Arthritis Back pain COPD (chronic obstructive pulmonary disease) COVID-19 vaccine series completed Gastric ulcer Hypercholesterolemia FIDEL (obstructive sleep apnea) Peripheral neuropathy PUD (peptic ulcer disease) Family History Family history of problems with anesthesia: No Surgical History Surgical History History of esophagogastroduodenoscopy (EGD) History of lumbar fusion Hx of colonoscopy History of Problems with Anesthesia: No Social History Social History Household Members: Spouse Housing: House Are you a primary healthcare administrator to a significant other at home: No Do you presently have visiting nurse or other home services: No Patient Tobacco Use Status: Former Tobacco user Quit Date: 11 yrs ago Tobacco use type: Cigarette Second Hand Smoke Exposure: No Have you been hit, kicked, punched, or otherwise hurt by someone within the past year? If so, by whom?: No Are you DNR?: No Advance Directives: No Advance Directives Information Provided: No Advance Directives on File: No Recently lost weight without trying: No Eating poorly because of decreased appetite: No Nutrition Risks: No Nutritional Risk service: No Current occupational status: retired Meds Allergies Allergy/AdvReac Type Severity Reaction Status Date / Time clonazepam [Klonopin] Allergy Unknown Anxiety, Verified 03/15/21 13:52 adverse reaction Home Medications Medication Instructions Recorded Confirmed Last Taken Type simvastatin 20 mg tablet 20 mg PO BEDTIME 05/06/20 03/15/21 Unknown History zolpidem 12.5 mg tablet,extended 12.5 mg PO BEDTIME 05/06/20 03/15/21 Unknown History release,multiphase hydroxyzine HCl 25 mg tablet 1 tab PO BID 10/31/20 03/15/21 Unknown History tramadol 50 mg tablet 1 tab PO Q12H PRN 10/31/20 03/15/21 Unknown History pregabalin 75 mg capsule 75 mg PO BID 02/04/21 03/15/21 Unknown History albuterol sulfate 90 mcg/actuation INHALATION 03/15/21 Unknown History aerosol inhaler (ProAir HFA) naloxone 4 mg/actuation nasal INTRANASAL 03/15/21 Unknown History spray (Narcan) tiotropium bromide 18 mcg capsule 1 puff INHALATION DAILY 03/15/21 03/15/21 Unknown History with inhalation device (Spiriva with HandiHaler) topiramate 25 mg tablet 1 - 2 tab PO BEDTIME 03/15/21 03/15/21 Unknown History Exam Height,Weight and Vital Signs: Height 5 ft 11 in Weight 108.862 kg Vital Signs Temp Pulse Resp BP Pulse Ox 03/19/21 08:21 97.7 F 83 16 120/80 93 Airway Mallampati Class: II TM Dist: >3cm Neck ROM: Full Partial: Upper Heart: RRR Lungs: CTAB Assessment and Plan Assessment Anesthesia Assessment: Anesthesia Plan Discussed Final Anesthetic Review Family History of Problems with Anesthesia: No History of Problems with Anesthesia: No NPO: Yes ASA Class: III Final Preanesthetic Review: No Changes in Pt Med Stat, Meds/Allgs Chart Reviewed, Consent Obtained/Reviewed and Anes Risks/Benef Reviewed Patient Risk: Intermediate Procedure Risk: Low Assessment/Block/Sedation in SS: Assess/Block/Sedation-SS Anesthetic Plan Anesthetic Plan: MAC: Disposition: Standard PACU
[2021-03-19 08:21] VITALS: BP 120/80; PULSE 83; RESP 16; TEMP 36.5; O2SAT 93
--- NOTE | 2021-03-19 08:32 | MHC.SHP ---
Pre-Procedural Eval Section A Date of Service: 03/19/21 The patient is an INPATIENT: No The History & Physical has been completed within 30 days and I have reviewed it.: No Section B Chief Complaint: Peptic ulcer disease Details of Present Illness: FU of multiple gastric and duodenal ulcers Relevant Family History (Specify if Yes): No Relevant Social History: None Present Medications: see Short Stay Collaborative assessment Medical History: Significant History (Arthritis Back pain Hypercholesterolemia) History of Previous Operations: Relevant previous surgery/procedure and date(s) (Hx of EGD & colonoscopy, hx of spinal fusion) Allergies: Allergies Allergy/AdvReac Type Severity Reaction Status Date / Time clonazepam [Klonopin] Allergy Unknown Anxiety, Verified 03/15/21 13:52 adverse reaction Review of Systems Sugical H&P ROS: Negative: Constitution, Cardiovascular, Respiratory and Gastrointestinal Exam Surgical H&P Exam: Normal: Heart, Normal: Lungs, Normal: Extremities and Normal: Abdomen Plan Diagnosis/Plan: Unchanged I have reviewed the history and physical and performed a pertinent physical examination on my patient. No changes have occurred unless specified.
[2021-03-19] MEDS: Lactated Ringers 1,000 ML 100 ML IVCONT (08:42)
--- NOTE | 2021-03-19 08:42 | PM.OP ---
Brief Operative Note Date of Service: 03/19/21 Pre-op diagnosis: FU of gastric and duodenal ulcers Post-op diagnosis: other (GERD, Gastritis) Procedure: FLEXIBLE TRANSORAL UPPER GASTROINTESTINAL ENDOSCOPY WITH BIOPSIES Consent: Indications for the procedure and potential complications of bleeding, perforation, reaction to medications and missed diagnosis were discussed with the patient and informed consent was obtained. Instrument: Olympus GIF H 190 mid size upper endoscope Monitoring: Vital signs and clinical assessment, continuous EKG monitoring, Pulse oximetry, Carbon Dioxide monitoring and blood pressure monitoring were done throughout the procedure. Procedure: The patient was placed in the left lateral decubitis position and pre-procedure medications were administered and a bite block was placed. The endoscope was inserted into the mouth and advanced under direct vision to the third part of duodenum. A careful inspection was made as the upper endoscope was withdrawn including a retroflexed examination of the proximal stomach; Findings and interventions are described below. Findings: Larynx: Normal Esophagus: GE junction at 40 cms. Irregular Z line - biopsied to check for Somers's. Stomach: Mild gastric erythema. Biopsies were obtained to confirm H Pylori eradication. Ulcers seen on past EGD healed completely. Grade 2 flap valve on retroflexed examination of the cardia. Duodenum: Normal bulb and descending duodenum. Ulcers seen on past EGD have healed. Intervention: Biopsies as noted above Impression and Post Procedure Diagnosis: Endoscopy Findings: ESOPHAGUS: Irregular Z line - biopsied to check for Somers's. STOMACH: Mild gastric erythema. Biopsies were obtained to confirm H Pylori eradication. Ulcers seen on past EGD healed completely. DUODENUM: Normal bulb and descending duodenum. Ulcers seen on past EGD have healed. Plan: Await pathology results Patient to schedule a FU appointment in the GI Clinic with Pauline Garcia M.D. Above findings were reviewed with the patient and Gastritis handout was given in the discharge area Surgeon: Pauline Garcia MD Anesthesia: MAC (Dr Del Rio & Kera Dominguez CRNA) Was an Commissioner Of [employer]ocation [employer] used for this Procedure?: Yes Commissioner Of Relocation Services: Angélica Villa Estimated blood loss (mL): 0 Pathology: other (A. gastric antrum, R/O H. pylori B. G-E junction, R/O Somers's) Condition: stable Disposition: PACU
--- NOTE | 2021-03-19 08:42 | W.PM.OPN ---
Operative Note Operative Note Date of Service: 03/19/21 Narrative: Pre-op diagnosis:?FU of gastric and duodenal ulcers Post-op diagnosis:?other (GERD, Gastritis) Procedure:? FLEXIBLE TRANSORAL UPPER GASTROINTESTINAL ENDOSCOPY WITH BIOPSIES Consent:?Indications for the procedure and potential complications of bleeding, perforation, reaction to medications and missed diagnosis were discussed with the patient and informed consent was obtained. Instrument:?Olympus GIF H 190 mid size upper endoscope Monitoring: Vital signs and clinical assessment, continuous EKG monitoring, Pulse oximetry, Carbon Dioxide monitoring and blood pressure monitoring were done throughout the procedure. Procedure:?The patient was placed in the left lateral decubitis position and pre-procedure medications were administered and a bite block was placed. The endoscope was inserted into the mouth and advanced under direct vision to the third part of duodenum. A careful inspection was made as the upper endoscope was withdrawn including a retroflexed examination of the proximal stomach; Findings and interventions are described below. Findings: Larynx:? Normal Esophagus:?GE junction at 40 cms.? Irregular Z line - biopsied to check for Somers's. Stomach:?Mild gastric erythema. Biopsies were obtained to confirm H Pylori eradication. Ulcers seen on past EGD healed completely. Grade 2 flap valve on retroflexed examination of the cardia. Duodenum:?Normal bulb and descending duodenum.? Ulcers seen on past EGD have healed. Intervention:?Biopsies as noted above Impression and Post Procedure Diagnosis: Endoscopy Findings: ESOPHAGUS: Irregular Z line - biopsied to check for Somers's. STOMACH: Mild gastric erythema. Biopsies were obtained to confirm H Pylori eradication. Ulcers seen on past EGD healed completely. DUODENUM: Normal bulb and descending duodenum.? Ulcers seen on past EGD have healed. Plan: Await pathology results Patient to schedule a FU appointment in the GI Clinic with Pauline Garcia M.D. Above findings were reviewed with the patient and Gastritis handout was given in the discharge area Surgeon:?Pauline Garcia MD Anesthesia:?MAC (Dr Del Rio & Kera Dominguez CRNA) Was an Electric Motor Rebuilder used for this Procedure?:?Yes Electric Motor Rebuilder:?Angélica Villa Estimated blood loss (mL):?0 Pathology:?other (A. gastric antrum, R/O H. pylori? B. G-E junction, R/O Somers's) Condition:?stable Disposition:?PACU
[2021-03-19 09:05] VITALS: BP 122/69; PULSE 80; RESP 14; TEMP 36.9; O2SAT 93
[2021-03-19 09:19] VITALS: BP 104/65; PULSE 65; RESP 16; TEMP 36.9; O2SAT 94
== END 2021-03-19 10:01 | disposition home or self-care (01) ==
PROVIDERS: PCP Internal Medicine; Visit Provider Internal Medicine Gastroenterology
PROC: 0DJ08ZZ Inspection of Upper Intestinal Tract, Via Natural or Artificial Opening Endoscopic (ICD-10-PCS; CPT 43235; principal; 2021-03-19 09:00)
DX: K29.70 Gastritis, unspecified, without bleeding (principal); K21.00 Gastro-esophageal reflux disease with esophagitis, without bleeding; Z87.11 Personal history of peptic ulcer disease; J44.9 Chronic obstructive pulmonary disease, unspecified; Z79.899 Other long term (current) drug therapy
CPT/HCPCS: 43239; 88305; 88342

== ENCOUNTER → 2021-04-07 08:56 | Outpatient (BNVA) | payer OTHER, SELFPAY | PROVIDERS: PCP Internal Medicine; Visit Provider Internal Medicine Pulmonary Disease ==

== ENCOUNTER 2021-04-19 10:15 | Outpatient (REF) | payer OTHER, SELFPAY ==
--- NOTE | ~2021-04-19 | XR_ITS ---
EXAMINATION: XR KNEE, RIGHT CLINICAL INFORMATION: Right knee pain. COMPARISON: None TECHNIQUE: Three views of the right knee. FINDINGS: Bones and soft tissues are normal. No fracture or joint effusion. Alignment is anatomic. Joint spaces are well maintained. No abnormal soft tissue calcification. XR/XR knee RT 3V IMPRESSION: Unremarkable radiographic appearance of the right knee.
== END 2021-04-19 10:16 | disposition home or self-care (01) ==
LOC: HO.XRAY 10:15
PROVIDERS: PCP Internal Medicine; Visit Provider Physician Assistant Surgical
DX: M17.11 Unilateral primary osteoarthritis, right knee (principal)
CPT/HCPCS: 73562

== ENCOUNTER → 2021-07-07 09:11 | Outpatient (BNVA) | payer OTHER, SELFPAY | PROVIDERS: PCP Nurse Practitioner Family; Visit Provider Internal Medicine Pulmonary Disease ==

== ENCOUNTER 2021-10-30 13:37 | Inpatient (IN) | payer OTHER, MEDICARE, SELFPAY ==
--- NOTE | ~2021-10-30 | CT_ITS ---
EXAMINATION: CT ENTEROGRAPHY ABDOMEN AND PELVIS WITH CONTRAST CLINICAL INFORMATION: Follow-up enteritis COMPARISON: 10/30/2021 TECHNIQUE: Study performed with oral Breeza (1500 mL) and 480 mL of water to distend the abdomen. The patient was injected with 85 mL Omnipaque 350 intravenous contrast which was administered without adverse effect. Coronal and sagittal reformatted images were obtained at the technologist's workstation. This CT examination was performed using dose optimization techniques as appropriate, variously including the following: *Automated exposure control *Adjustment of mA and/or kV according to patient size (this includes techniques or standardized protocols for targeted exams where dose is matched to indication/reason for exam; i.e. extremities or head) *Use of iterative reconstruction technique DLP: 531 mGy-cm FINDINGS: GASTROINTESTINAL FINDINGS: Stomach: Well-distended and normal in appearance. Small intestine: Satisfactorily distended and normal in appearance. Previously visualized mild fatty infiltration of the terminal ileal wall is not well defined on the current study. Large intestine: Partially distended. Colonic diverticulosis without diverticulitis.. No perirectal changes demonstrated. The appendix is normal. Additional findings: No abnormal enhancement of the vasa recta or significant mesenteric or retroperitoneal lymphadenopathy is seen. No abdominal abscess or fistulous tract demonstrated. ABDOMINAL AND PELVIC CT FINDINGS: Liver, gallbladder, biliary tract: Multiple. Pancreas: Normal. Spleen: Normal. Adrenal glands and kidneys: Normal. Ureters and bladder: Normal. Lymphovascular structures: Normal caliber aorta with mild atherosclerotic calcification. No lymphadenopathy. Bones: No acute or suspicious osseous abnormality. Posterior fusion hardware from L4 through S1. Spinal stimulator in place with generator in the posterior left soft tissues and wiring extending to the T8-T9 level. Lung bases: Clear. CT/CT enterography IMPRESSION: Normal appearance of the bowel. No wall thickening or inflammation. Previously visualized fatty infiltration of the terminal ileal wall is better defined on the previous study. Colonic diverticulosis without diverticulitis.
--- NOTE | ~2021-10-30 | CT_ITS ---
EXAMINATION: CT abdomen pelvis wo con CLINICAL INFORMATION: Reason for Exam diverticular bleed COMPARISON: No prior CT available for comparison. TECHNIQUE: Multidetector volumetric imaging was performed from the superior aspect of the liver through the pubic symphysis , noncontrasted study Sagittal and coronal reformatted images were obtained on the technologist's workstation. This CT examination was performed using dose optimization techniques as appropriate, variously including the following: *Automated exposure control *Adjustment of mA and/or kV according to patient size (this includes techniques or standardized protocols for targeted exams where dose is matched to indication/reason for exam; i.e. extremities or head) *Use of iterative reconstruction technique DLP: 760 mGy-cm FINDINGS: LOWER THORAX: Included lung bases are clear. HEPATOBILIARY: No focal hepatic lesions. No biliary ductal dilatation. Tiny hypodensity in the liver less than 5 mm too small to characterize. GALLBLADDER: Gallbladder unremarkable. SPLEEN: Spleen is normal in size. PANCREAS: No focal mass or ductal dilatation. STOMACH AND GASTROINTESTINAL TRACT: Stomach is grossly unremarkable. There is no bowel distention or thickening. There is mild sigmoid diverticulosis without evidence of acute diverticulitis. Cannot assess for GI bleed in the absence of contrast. Low-attenuation wall of the terminal ileum although nonspecific, this has been described in association with chronic or prior colitis including IBD. ADRENALS: No adrenal nodules. KIDNEYS/URETERS: No hydronephrosis, stones or solid mass lesions. URINARY BLADDER: Partially decompressed. PELVIC VISCERA: Unremarkable PERITONEUM: No free air or fluid. LYMPH NODES: No lymphadenopathy. VASCULAR:Abdominal aorta normal in size, no aneurysm found. BONES, ABDOMINAL WALL AND SOFT TISSUES: Hardware posterior fusion lower lumbar spine are intact. There is spondylosis of the lumbar spine mild degenerative arthritis SI joints and hip joints. No destructive bone lesion. Sclerotic density right iliac bone probably bone islands. CT/CT abdomen pelvis wo con IMPRESSION: Exam limited noncontrasted study. Cannot assess source of GI bleed. *Diverticulosis without CT evidence of acute diverticulitis. *Mild circumferential wall thickening with low attenuation involving the terminal ileum, nonspecific however this has been described in association with a chronic or prior colitis including possible IBD. Please correlate clinically. No evidence of bowel obstruction. *Ectatic distal aorta 2.7 cm, nonaneurysmal. There are vascular calcifications. 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
[2021-10-30 15:01] VITALS: BP 105/71; PULSE 102; RESP 18; TEMP 36.9; O2SAT 95; BMI 30.2
[2021-10-30 15:16] LABS: MANUAL DIFF FLAG NO
[2021-10-30 15:40] LABS: Basophils Absolute Auto 0.1 X10*3/uL (0.0-0.2); Basophils Percent Auto 0.4 % (0-2); Eosinophils Absolute Auto 0.1 X10*3/uL (0.0-0.4); Eosinophils Percent Auto 0.5 % (0-4); Hematocrit 42.2 % (42.0-52.0); Imm Gran Abs Auto 0.09 X10*3/uL (0.00-0.03); Imm Gran Pct Auto 0.7 % (0.0-0.4); Lymphocytes Absolute Auto 2.1 X10*3/uL (1.2-4.9); Lymphocytes Percent Auto 15.2 % (20-40); Mean Corpuscular HGB Conc 33.2 g/dl (31.0-36.0); Mean Corpuscular Hemoglobin 29.7 pg (27.0-33.0); Mean Corpuscular Volume 89.6 fL (80.0-98.0); Mean Platelet Volume 10.7 fL (9.4-12.4); Monocytes Absolute Auto 0.7 X10*3/uL (0.1-1.2); Monocytes Percent Auto 5.3 % (2-11); Neutrophils Absolute Auto 10.6 x10*3/uL (2.0-8.3); Neutrophils Percent Auto 77.9 % (45-73); Platelet Count 308 X10*3/uL (160-400); Red Blood Count 4.71 X10*6/uL (4.60-5.80); Red Cell Distribution Width 13.7 % (11.0-16.0); White Blood Count 13.7 X10*3/uL (4.8-10.8)
[2021-10-30 15:44] LABS: Anion Gap 13 (12-20); Blood Urea Nitrogen 12 mg/dL (9-16); Calcium 9.2 mg/dL (8.4-10.2); Carbon Dioxide 25 mmol/L (22-29); Chloride 104 mmol/L (96-108); Creatinine Clr Calc Pharmacy 80.7; Estimated Glomerular Filt Rate > 60; Glucose Random 114 mg/dL (60-115); Potassium 4.3 mmol/L (3.3-5.1); Sodium 138 mmol/L (135-145)
--- NOTE | 2021-10-30 16:59 | ED_ITS ---
HPI - GI Bleed General Chief complaint: GI Bleed Stated complaint: GI Bleed Time Seen by Provider: 10/30/21 16:59 Source: patient Mode of arrival: ambulatory Limitations: no limitations History of Present Illness HPI Narrative: Patient's history of lower GI bleed likely diverticular in 11/13 requiring blood transfusion endoscopy done showed chronic appearing ulcers in the gastric antrum and duodenum nonbleeding and colonoscopy showed no active bleeding site with scattered clots in the colon likely diverticular bleed. Patient comes here for rectal bleeding started today morning initially had a big bowel movement with maroon-colored stool after that having multiple about 4 episodes of bright red blood per rectum without much stool. Patient complaining of body aches and dizziness. Patient not taking NSAID anymore last bowel movement around 1500 today while in the waiting area Related Data Home Medications Medication Instructions Recorded Confirmed simvastatin 20 mg tablet 20 mg PO BEDTIME 05/06/20 10/30/21 tramadol 50 mg tablet 1 tab PO TID 10/31/20 10/30/21 duloxetine 60 mg capsule,delayed 60 mg PO DAILY 10/30/21 10/30/21 release omeprazole 40 mg capsule,delayed 40 mg PO DAILY@0630 10/30/21 10/30/21 release propranolol 10 mg tablet 10 mg PO DAILY PRN 10/30/21 10/30/21 zolpidem 12.5 mg tablet,extended 12.5 mg PO BEDTIME 10/30/21 10/30/21 release,multiphase Previous Rx's Medication Instructions Recorded etodolac 400 mg tablet (Lodine) 400 mg PO BID 30 Days #60 tab 05/29/21 Allergies Allergy/AdvReac Type Severity Reaction Status Date / Time clonazepam [Klonopin] Allergy Unknown Anxiety, Verified 10/30/21 15:01 adverse reaction Review of Systems Review of Systems: Yes all other systems are reviewed and are negative [facility] Past Medical History Medical History Arthritis Back pain COPD (chronic obstructive pulmonary disease) COVID-19 vaccine series completed Gastric ulcer Hypercholesterolemia FIDEL (obstructive sleep apnea) Peripheral neuropathy PUD (peptic ulcer disease) Surgical History History of esophagogastroduodenoscopy (EGD) History of lumbar fusion Hx of colonoscopy Social History Social History Household Members: Spouse Housing: House Are you a primary home care giver to a significant other at home: No Do you presently have visiting nurse or other home services: No Patient Tobacco Use Status: Former Tobacco user Quit Date: 11 yrs ago Tobacco use type: Cigarette Second Hand Smoke Exposure: No Currently Displaying Signs/Symptoms of Drug Intoxication Withdrawal: No Advance Directives: No service: No Current occupational status: retired Physical Exam Vital Signs: Vital Signs: Last Vital Signs Temp 97.4 F 10/31/21 00:00 Pulse 94 10/31/21 00:00 Resp 20 10/31/21 00:00 BP 98/72 10/31/21 00:00 Pulse Ox 96 10/31/21 00:00 BMI result Body Mass Index 30.2 Appearance: Alert. Oriented X3. No acute distress. Eyes: No pallor ENT: Pharynx normal. Oral Mucosa moist Neck: Normal inspection. Neck supple. CVS: Normal heart rate and rhythm. Pulses normal. Respiratory: No respiratory distress. Equal air entry bilateral, no wheezing/rales/rhonchi Abdomen: Soft and nontender. Bowel sounds are present, no mass palpable, no CVA tenderness Rectal: Maroon Blood on the fingertip Skin: Skin warm and dry. Normal skin color. Normal skin turgor. Extremities: No lower extremity edema. No calf tenderness Neuro: Oriented X 3 MDM - GI Bleed MDM Narrative Medical decision making narrative: Patient with significant amount of lower GI bleed with maroon blood with clots CT scan negative for any acute, H&H dropped from 14.0/42.2 to 12.6/38.3 will admit patient for further evaluation and close watch on H&H Lab Data Attestation: I reviewed the patient's lab results. Result diagrams: 10/30/21 18:48 10/30/21 15:11 Labs: Lab Results 10/30/21 10/30/21 10/30/21 Range/Units 15:11 15:11 17:26 WBC 13.7 H (4.8-10.8) X10*3/uL RBC 4.71 (4.60-5.80) X10*6/uL Hgb 14.0 (14.0-18.0) g/dl Hct 42.2 (42.0-52.0) % MCV 89.6 (80.0-98.0) fL MCH 29.7 (27.0-33.0) pg MCHC 33.2 (31.0-36.0) g/dl RDW 13.7 (11.0-16.0) % Plt Count 308 (160-400) X10*3/uL MPV 10.7 (9.4-12.4) fL Immature Gran % (Auto) 0.7 H (0.0-0.4) % Neut % (Auto) 77.9 H (45-73) % Lymph % (Auto) 15.2 L (20-40) % [place] % (Auto) 5.3 (2-11) % Eos % (Auto) 0.5 (0-4) % Baso % (Auto) 0.4 (0-2) % Lymph # (Auto) 2.1 (1.2-4.9) X10*3/uL [place] # (Auto) 0.7 (0.1-1.2) X10*3/uL Eos # (Auto) 0.1 (0.0-0.4) X10*3/uL Baso # (Auto) 0.1 (0.0-0.2) X10*3/uL Abs Immat Gran (auto) 0.09 H (0.00-0.03) X10*3/uL Absolute Neuts (auto) 10.6 H (2.0-8.3) x10*3/uL Absolute Nucleated RBC 0.000 (0.0-0.012) X10*3/uL Nucleated RBC % (auto) 0.0 (0.0-0.2) /100WBC PT (9.9-13.0) SEC INR (0.9-1.1) Sodium 138 (135-145) mmol/L Potassium 4.3 (3.3-5.1) mmol/L Chloride 104 (96-108) mmol/L Carbon Dioxide 25 (22-29) mmol/L Anion Gap 13 (12-20) BUN 12 (9-16) mg/dL Creatinine 1.12 (0.5-1.4) mg/dL Estim Creat Clear Calc 80.7 Estimated GFR > 60 Random Glucose 114 (60-115) mg/dL Calcium 9.2 D (8.4-10.2) mg/dL Stool Occult Blood (NEGATIVE) COVID-19 (JACKLYN) Negative (Negative) COVID-19 Clin Com See Note Blood Type Antibody Screen 10/30/21 10/30/21 10/30/21 Range/Units 17:26 17:26 17:28 WBC (4.8-10.8) X10*3/uL RBC (4.60-5.80) X10*6/uL Hgb (14.0-18.0) g/dl Hct (42.0-52.0) % MCV (80.0-98.0) fL MCH (27.0-33.0) pg MCHC (31.0-36.0) g/dl RDW (11.0-16.0) % Plt Count (160-400) X10*3/uL MPV (9.4-12.4) fL Immature Gran % (Auto) (0.0-0.4) % Neut % (Auto) (45-73) % Lymph % (Auto) (20-40) % [place] % (Auto) (2-11) % Eos % (Auto) (0-4) % Baso % (Auto) (0-2) % Lymph # (Auto) (1.2-4.9) X10*3/uL [place] # (Auto) (0.1-1.2) X10*3/uL Eos # (Auto) (0.0-0.4) X10*3/uL Baso # (Auto) (0.0-0.2) X10*3/uL Abs Immat Gran (auto) (0.00-0.03) X10*3/uL Absolute Neuts (auto) (2.0-8.3) x10*3/uL Absolute Nucleated RBC (0.0-0.012) X10*3/uL Nucleated RBC % (auto) (0.0-0.2) /100WBC PT 11.7 (9.9-13.0) SEC INR 1.0 (0.9-1.1) Sodium (135-145) mmol/L Potassium (3.3-5.1) mmol/L Chloride (96-108) mmol/L Carbon Dioxide (22-29) mmol/L Anion Gap (12-20) BUN (9-16) mg/dL Creatinine (0.5-1.4) mg/dL Estim Creat Clear Calc Estimated GFR Random Glucose (60-115) mg/dL Calcium (8.4-10.2) mg/dL Stool Occult Blood POSITIVE (NEGATIVE) COVID-19 (JACKLYN) (Negative) COVID-19 Clin Com Blood Type A Positive Antibody Screen NEGATIVE 10/30/21 Range/Units 18:48 WBC (4.8-10.8) X10*3/uL RBC (4.60-5.80) X10*6/uL Hgb 12.6 L (14.0-18.0) g/dl Hct 38.3 L (42.0-52.0) % MCV (80.0-98.0) fL MCH (27.0-33.0) pg MCHC (31.0-36.0) g/dl RDW (11.0-16.0) % Plt Count (160-400) X10*3/uL MPV (9.4-12.4) fL Immature Gran % (Auto) (0.0-0.4) % Neut % (Auto) (45-73) % Lymph % (Auto) (20-40) % [place] % (Auto) (2-11) % Eos % (Auto) (0-4) % Baso % (Auto) (0-2) % Lymph # (Auto) (1.2-4.9) X10*3/uL [place] # (Auto) (0.1-1.2) X10*3/uL Eos # (Auto) (0.0-0.4) X10*3/uL Baso # (Auto) (0.0-0.2) X10*3/uL Abs Immat Gran (auto) (0.00-0.03) X10*3/uL Absolute Neuts (auto) (2.0-8.3) x10*3/uL Absolute Nucleated RBC (0.0-0.012) X10*3/uL Nucleated RBC % (auto) (0.0-0.2) /100WBC PT (9.9-13.0) SEC INR (0.9-1.1) Sodium (135-145) mmol/L Potassium (3.3-5.1) mmol/L Chloride (96-108) mmol/L Carbon Dioxide (22-29) mmol/L Anion Gap (12-20) BUN (9-16) mg/dL Creatinine (0.5-1.4) mg/dL Estim Creat Clear Calc Estimated GFR Random Glucose (60-115) mg/dL Calcium (8.4-10.2) mg/dL Stool Occult Blood (NEGATIVE) COVID-19 (JACKLYN) (Negative) COVID-19 Clin Com Blood Type Antibody Screen Discharge Plan Discharge Clinical Impression: Acute GI bleeding Patient Disposition: Admitted As Inpatient Interventions: Admission Worksheet (ED) Last Done: 10/31/21 00:38 Discharge Date/Time: 10/31/21 00:00
[2021-10-30 17:40] LABS: OBS Int Ctl Valid YES; OBS1 POSITIVE (NEGATIVE)
[2021-10-30 17:46] LABS: Prothrombin Time 11.7 SEC (9.9-13.0)
[2021-10-30 17:55] LABS: COVID-19 Test Negative (Negative); IDNOW Serial# 16C4AD1C
[2021-10-30 18:42] VITALS: BP 110/68; PULSE 86; RESP 17; O2SAT 98
[2021-10-30 18:53] LABS: Hematocrit 38.3 % (42.0-52.0); Hemoglobin 12.6 g/dl (14.0-18.0)
[2021-10-30] MEDS: Pantoprazole Sodium 40 MG/10 ML VIAL IVPUSH (20:14)
[2021-10-30 20:17] VITALS: BP 107/77; PULSE 85; RESP 14; O2SAT 97
[2021-10-30 20:19] VITALS: BP 117/73; PULSE 80
[2021-10-30 20:20] VITALS: BP 99/68; PULSE 90
[2021-10-30 20:21] VITALS: BP 91/67; PULSE 105
--- NOTE | 2021-10-30 20:28 | PHA.MEDREC ---
med rec complete, no issues Pharmacy Consult ? Medication Reconciliation Pharmacy has completed the medication reconciliation.
--- NOTE | 2021-10-30 21:36 | PM.IMHP ---
History of Present Illness Date of Service: 10/30/21 Chief Complaint: gi bleed This is a 61-year-old male with past medical history of COPD, history of GI bleed,peptic ulcer disease FIDEL, HLD, peripheral neuropathy, who presents to the hospital with complaints of GI bleed. Patient reports that he had about 5 episodes of GI bleed, the initial 1 associated with diarrhea, then he had for follow-up bleed of bright red blood per rectum. He denies any abdominal pain, no headache, no change in vision, endorses dizziness with no palpitations or chest pain. No abdominal pain nausea or vomiting no urinary symptoms and no lower extremity edema Of note patient had a similar bleed in October of 2020. At that time patient underwent workup which revealed no source, and bleed thought to be diverticular. On arrival to the ED patient hemodynamically stable with no abnormal vitals Labs are noted to be significant for WBC of 13.7, hemoglobin was initially 14, repeat dropped to 12.6, labs otherwise unremarkable. Patient will be admitted for further management Review of Systems Review of Systems: Yes all other systems are reviewed and are negative [facility] Medical History Arthritis Back pain COPD (chronic obstructive pulmonary disease) COVID-19 vaccine series completed Gastric ulcer Hypercholesterolemia FIDEL (obstructive sleep apnea) Peripheral neuropathy PUD (peptic ulcer disease) Family History (Updated 10/31/21 @ 06:17 by Shamika Rodriguez MD) Mother History of cancer Diabetes Surgical History History of esophagogastroduodenoscopy (EGD) History of lumbar fusion Hx of colonoscopy Social History Household Members: Spouse Housing: House Are you a primary health care facilities inspector to a significant other at home: No Do you presently have visiting nurse or other home services: No Patient Tobacco Use Status: Former Tobacco user Quit Date: 11 yrs ago Tobacco use type: Cigarette Second Hand Smoke Exposure: No Use of substances other than those prescribed or required for medical reasons: No Currently Displaying Signs/Symptoms of Drug Intoxication Withdrawal: No Have you been hit, kicked, punched, or otherwise hurt by someone within the past year? If so, by whom?: No Do you feel safe in your current relationship?: Yes Is there a partner from a previous relationship who is making you feel unsafe now?: No Are you made to feel afraid or neglected: No Advance Directives: No Do you have thoughts of harming others: None Do you have a plan to hurt others: No Plan Recently lost weight without trying: Unsure Eating poorly because of decreased appetite: No Nutrition Risks: No Nutritional Risk Poor oral hygiene: No service: No Current occupational status: retired Meds Allergies Allergy/AdvReac Type Severity Reaction Status Date / Time clonazepam [Klonopin] Allergy Unknown Anxiety, Verified 10/30/21 15:01 adverse reaction Active Medications: Current Medications Acetaminophen (Acetaminophen 325 Mg Tablet) 650 mg PO Q6H PRN PRN Reason: Pain, Mild (Pain Scale 1-3) Atorvastatin Calcium (Atorvastatin Calcium 10 Mg Tablet) 10 mg PO BEDTIME RO Duloxetine HCl (Duloxetine Hcl 60 Mg Capsule.Dr) 60 mg PO DAILY [facility] Lactated Ringer's (Lr) 1,000 mls @ 80 mls/hr IVCONT .[id number] [facility] Ondansetron HCl (Ondansetron Hcl 4 Mg/2 Ml Vial) 4 mg IVPUSH Q8H PRN PRN Reason: Nausea and Vomiting Pantoprazole Sodium (Pantoprazole Sodium 40 Mg/10 Ml Vial) 40 mg IVPUSH BID@0630,1630 [facility] Propranolol HCl (Propranolol Hcl 10 Mg Tablet) 10 mg PO DAILY PRN; Protocol PRN Reason: Anxiety Sodium Chloride (0.9 % Sodium Chloride Flush 3 Ml Syringe) 3 ml IVFLUSH QSHIFT RO Tramadol HCl (Tramadol Hcl 50 Mg Tablet) 50 mg PO TID [facility] Zolpidem Tartrate (Zolpidem Tartrate 5 Mg Tablet) 5 mg PO BEDTIME [facility] Home Medications Medication Instructions Recorded Confirmed Last Taken Type simvastatin 20 mg tablet 20 mg PO BEDTIME 05/06/20 10/30/21 10/29/21 History tramadol 50 mg tablet 1 tab PO TID 10/31/20 10/30/21 10/30/21 History duloxetine 60 mg capsule,delayed 60 mg PO DAILY 10/30/21 10/30/21 10/30/21 History release omeprazole 40 mg capsule,delayed 40 mg PO DAILY@0630 10/30/21 10/30/21 10/30/21 History release propranolol 10 mg tablet 10 mg PO DAILY PRN 10/30/21 10/30/21 Unknown History zolpidem 12.5 mg tablet,extended 12.5 mg PO BEDTIME 10/30/21 10/30/21 10/29/21 History release,multiphase Physical Exam Vital Signs and Narrative: Vital Signs: Last Vital Signs Temp 98.5 F 10/30/21 15:01 Pulse 105 H 10/30/21 20:21 Resp 14 10/30/21 20:17 BP 91/67 10/30/21 20:21 Pulse Ox 97 10/30/21 20:17 BMI result Body Mass Index 30.2 Const: General: cooperative and no acute distress Orientation/consciousness: patient oriented x3 Eyes: General: appearance normal, both eyes and all related structures Pupils: Equal, round and reactive pupils present Resp: Effort & Inspection: normal respiratory effort Auscultation: clear to auscultation bilaterally Cardio: Rate: regular rate Rhythm: regular rhythm GI: Other: No tenderness no guarding or rebound Palpation (GI): Soft to palpation Auscultation: normal bowel sounds Skin: General skin exam: no rashes or lesions noted Neuro: General: patient oriented x3 Cranial nerves: Yes Equal, round and reactive pupils present Cognition (Neuro): normal cognition Extrem: General: Yes normal to inspection and Yes no pedal edema Results Labs CBC and Chem 7: 10/30/21 18:48 10/30/21 15:11 Labs: Laboratory Results - last 24 hr 10/30/21 10/30/21 10/30/21 15:11 15:11 17:26 MCV 89.6 MCH 29.7 MCHC 33.2 RDW 13.7 Plt Count 308 MPV 10.7 Immature Gran % (Auto) 0.7 H Neut % (Auto) 77.9 H Lymph % (Auto) 15.2 L [place] % (Auto) 5.3 Eos % (Auto) 0.5 Baso % (Auto) 0.4 Lymph # (Auto) 2.1 [place] # (Auto) 0.7 Eos # (Auto) 0.1 Baso # (Auto) 0.1 Abs Immat Gran (auto) 0.09 H Absolute Neuts (auto) 10.6 H Absolute Nucleated RBC 0.000 Nucleated RBC % (auto) 0.0 PT INR Anion Gap 13 Estim Creat Clear Calc 80.7 Estimated GFR > 60 Random Glucose 114 Calcium 9.2 D Stool Occult Blood COVID-19 (JACKLYN) Negative COVID-19 Clin Com See Note Blood Type Antibody Screen 10/30/21 10/30/21 10/30/21 17:26 17:26 17:28 MCV MCH MCHC RDW Plt Count MPV Immature Gran % (Auto) Neut % (Auto) Lymph % (Auto) [place] % (Auto) Eos % (Auto) Baso % (Auto) Lymph # (Auto) [place] # (Auto) Eos # (Auto) Baso # (Auto) Abs Immat Gran (auto) Absolute Neuts (auto) Absolute Nucleated RBC Nucleated RBC % (auto) PT 11.7 INR 1.0 Anion Gap Estim Creat Clear Calc Estimated GFR Random Glucose Calcium Stool Occult Blood POSITIVE COVID-19 (JACKLYN) COVID-19 Clin Com Blood Type A Positive Antibody Screen NEGATIVE Imaging Radiologist's Impressions: Impressions Abdomen/Pelvis CT 10/30/21 17:27 IMPRESSION: Exam limited noncontrasted study. Cannot assess source of GI bleed. *Diverticulosis without CT evidence of acute diverticulitis. *Mild circumferential wall thickening with low attenuation involving the terminal ileum, nonspecific however this has been described in association with a chronic or prior colitis including possible IBD. Please correlate clinically. No evidence of bowel obstruction. *Ectatic distal aorta 2.7 cm, nonaneurysmal. There are vascular calcifications. 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 Assessment and Plan (1) Acute GI bleeding: Status: Acute Plan 61-year-old male with past medical history of the presents to the hospital with acute GI bleed # acute GI bleed - lower versus upper GI - patient hemodynamically stable - hemoglobin stable - patient uses etodolac which is an NSAID but I do not believe he is aware that this is an NSAID - at this time will start patient on pantoprazole, - follow H&H - GI consulted - liquid diet # depression anxiety - continue duloxetine # hyperlipidemia - continue statin # insomnia - continue zolpidem DVT prophylaxis: SCDs Quality Stroke Does the patient have a stroke diagnosis?: No VTE Prior VTE?: No VTE Risk Level:: Medical - moderate - high VTE Device Contraindication: N/A - Device Ordered VTE Drug Contraindication: Treatment Not Indicated
--- NOTE | 2021-10-30 22:36 | PC.NURSE ---
Pt med rec was completed after 2100, therefore night meds were not scheduled for this evening. This RN called pharmacy to request that meds be scheduled for tonight, but they advised to pull meds as unscheduled dose and administer to pt.
[2021-10-30] MEDS: traMADoL HCL 50 MG TABLET PO (22:38)
[2021-10-30] MEDS: Lactated Ringers 1,000 ML 80 ML IVCONT (22:39)
[2021-10-30] MEDS: Zolpidem Tartrate 5 MG TABLET PO (22:39)
[2021-10-30] MEDS: Atorvastatin Calcium 10 MG TABLET PO (22:39)
[2021-10-31] VITALS (7 sets, daily range): BP systolic 96–122; BP diastolic 55–77; PULSE 67–94; RESP 18–20; TEMP 36.3–36.8; O2SAT 95–98
[2021-10-31] MEDS: 0.9 % Sodium Chloride Flush 3 ML SYRINGE IVFLUSH (00:14)
[2021-10-31] MEDS: Pantoprazole Sodium 40 MG/10 ML VIAL IVPUSH ×2 (06:12→15:14)
[2021-10-31 06:32] LABS: MANUAL DIFF FLAG NO
[2021-10-31 06:57] LABS: Basophils Percent Auto 0.4 % (0-2); Eosinophils Absolute Auto 0.2 X10*3/uL (0.0-0.4); Eosinophils Percent Auto 1.8 % (0-4); Hematocrit 40.4 % (42.0-52.0); Hemoglobin 13.1 g/dl (14.0-18.0); Imm Gran Abs Auto 0.03 X10*3/uL (0.00-0.03); Imm Gran Pct Auto 0.4 % (0.0-0.4); Lymphocytes Absolute Auto 2.8 X10*3/uL (1.2-4.9); Lymphocytes Percent Auto 34.1 % (20-40); Mean Corpuscular HGB Conc 32.4 g/dl (31.0-36.0); Mean Corpuscular Hemoglobin 29.4 pg (27.0-33.0); Mean Corpuscular Volume 90.6 fL (80.0-98.0); Mean Platelet Volume 10.7 fL (9.4-12.4); Monocytes Absolute Auto 0.6 X10*3/uL (0.1-1.2); Monocytes Percent Auto 7.1 % (2-11); Neutrophils Absolute Auto 4.6 x10*3/uL (2.0-8.3); Neutrophils Percent Auto 56.2 % (45-73); Platelet Count 286 X10*3/uL (160-400); Red Blood Count 4.46 X10*6/uL (4.60-5.80); Red Cell Distribution Width 13.9 % (11.0-16.0); White Blood Count 8.3 X10*3/uL (4.8-10.8)
[2021-10-31 07:22] LABS: Anion Gap 12 (12-20); Blood Urea Nitrogen 11 mg/dL (9-16); Calcium 9.4 mg/dL (8.4-10.2); Carbon Dioxide 27 mmol/L (22-29); Chloride 106 mmol/L (96-108); Creatinine Clr Calc Pharmacy 86.1; Estimated Glomerular Filt Rate > 60; Glucose Random 104 mg/dL (60-115); Potassium 4.4 mmol/L (3.3-5.1); Sodium 141 mmol/L (135-145)
--- NOTE | 2021-10-31 08:11 | P.PNIM_ITS ---
Subjective Subjective Date of Service: 10/31/21 Interval History: GIB Review of Systems No new episode overnight, H&H stable, denies any chest pain or shortness of breath or abdominal pain or fever chills or cough or phlegm. Physical Exam Vital Signs: Vital Signs: Last Vital Signs Temp 97.6 F 10/31/21 08:00 Pulse 67 10/31/21 08:00 Resp 20 10/31/21 08:00 BP 113/77 10/31/21 08:00 Pulse Ox 97 10/31/21 08:00 BMI result Body Mass Index 30.2 Appearance: Alert.? Oriented X3.? not in distress.? cvs: rrr, [id number] , no murmur res: clear to auscultation ,no rhonchii or wheezing abd: no rebound or guarding ,nt, bs present. ext pulses present , no cyanosis. neuro: axo3 , nonfocal. Objective Data Active Medications Acetaminophen (Acetaminophen 325 Mg Tablet) 650 mg PO Q6H PRN PRN Reason: Pain, Mild (Pain Scale 1-3) Atorvastatin Calcium (Atorvastatin Calcium 10 Mg Tablet) 10 mg PO BEDTIME [facility] Last Admin: 10/30/21 22:39 Dose: 10 mg Documented by: LATONYA Duloxetine HCl (Duloxetine Hcl 60 Mg Capsule.Dr) 60 mg PO DAILY [facility] Lactated Ringer's (Lr) 1,000 mls @ 80 mls/hr IVCONT .[id number] [facility] Last Admin: 10/30/21 22:39 Dose: 80 mls/hr Documented by: LATONYA Ondansetron HCl (Ondansetron Hcl 4 Mg/2 Ml Vial) 4 mg IVPUSH Q8H PRN PRN Reason: Nausea and Vomiting Pantoprazole Sodium (Pantoprazole Sodium 40 Mg/10 Ml Vial) 40 mg IVPUSH BID@06 30,1630 [facility] Last Admin: 10/31/21 06:12 Dose: 40 mg Documented by: JHONY Propranolol HCl (Propranolol Hcl 10 Mg Tablet) 10 mg PO DAILY PRN; Protocol PRN Reason: Anxiety Sodium Chloride (0.9 % Sodium Chloride Flush 3 Ml Syringe) 3 ml IVFLUSH QSHIFT [facility] Last Admin: 10/31/21 00:14 Dose: 3 ml Documented by: JHONY Tramadol HCl (Tramadol Hcl 50 Mg Tablet) 50 mg PO TID [facility] Last Admin: 10/30/21 22:38 Dose: 50 mg Documented by: LATONYA Zolpidem Tartrate (Zolpidem Tartrate 5 Mg Tablet) 5 mg PO BEDTIME [facility] Last Admin: 10/30/21 22:39 Dose: 5 mg Documented by: LATONYA Labs CBC & Chem 7: 10/31/21 06:09 10/31/21 06:09 Labs: Laboratory Results - last 24 hr 10/30/21 10/30/21 10/30/21 15:11 15:11 17:26 MCV 89.6 MCH 29.7 MCHC 33.2 RDW 13.7 Plt Count 308 MPV 10.7 Immature Gran % (Auto) 0.7 H Neut % (Auto) 77.9 H Lymph % (Auto) 15.2 L Burnett % (Auto) 5.3 Eos % (Auto) 0.5 Baso % (Auto) 0.4 Lymph # (Auto) 2.1 Burnett # (Auto) 0.7 Eos # (Auto) 0.1 Baso # (Auto) 0.1 Abs Immat Gran (auto) 0.09 H Absolute Neuts (auto) 10.6 H Absolute Nucleated RBC 0.000 Nucleated RBC % (auto) 0.0 PT INR Anion Gap 13 Estim Creat Clear Calc 80.7 Estimated GFR > 60 Random Glucose 114 Calcium 9.2 D Stool Occult Blood COVID-19 (JACKLYN) Negative COVID-19 Clin Com See Note Blood Type Antibody Screen 10/30/21 10/30/21 10/30/21 17:26 17:26 17:28 MCV MCH MCHC RDW Plt Count MPV Immature Gran % (Auto) Neut % (Auto) Lymph % (Auto) Burnett % (Auto) Eos % (Auto) Baso % (Auto) Lymph # (Auto) Burnett # (Auto) Eos # (Auto) Baso # (Auto) Abs Immat Gran (auto) Absolute Neuts (auto) Absolute Nucleated RBC Nucleated RBC % (auto) PT 11.7 INR 1.0 Anion Gap Estim Creat Clear Calc Estimated GFR Random Glucose Calcium Stool Occult Blood POSITIVE COVID-19 (JACKLYN) COVID-19 Clin Com Blood Type A Positive Antibody Screen NEGATIVE 10/31/21 10/31/21 06:09 06:09 MCV 90.6 MCH 29.4 MCHC 32.4 RDW 13.9 Plt Count 286 MPV 10.7 Immature Gran % (Auto) 0.4 Neut % (Auto) 56.2 Lymph % (Auto) 34.1 Burnett % (Auto) 7.1 Eos % (Auto) 1.8 Baso % (Auto) 0.4 Lymph # (Auto) 2.8 Burnett # (Auto) 0.6 Eos # (Auto) 0.2 Baso # (Auto) 0.0 Abs Immat Gran (auto) 0.03 Absolute Neuts (auto) 4.6 Absolute Nucleated RBC 0.000 Nucleated RBC % (auto) 0.0 PT INR Anion Gap 12 Estim Creat Clear Calc 86.1 Estimated GFR > 60 Random Glucose 104 Calcium 9.4 Stool Occult Blood COVID-19 (JACKLYN) COVID-19 Clin Com Blood Type Antibody Screen Assessment and Plan (1) Acute GI bleeding: Status: Acute Plan 61-year-old male with past medical history of the presents to the hospital with acute GI bleed acute GI bleed - lower versus upper GI h/h stable, patient hemodynamically stable on pantoprazole, - follow H&H - GI consulted - liquid diet depression anxiety - continue duloxetine hyperlipidemia - continue statin insomnia - continue zolpidem DVT prophylaxis:? SCDs need for inpatient : gi bleed, gi eval pending , moniter h/h Quality Stroke Does the patient have a stroke diagnosis?: No VTE Prior VTE?: No VTE Risk Level:: Medical - moderate - high VTE Device Contraindication: N/A - Device Ordered VTE Drug Contraindication: Treatment Not Indicated
[2021-10-31] MEDS: traMADoL HCL 50 MG TABLET PO ×3 (09:10→20:51)
[2021-10-31] MEDS: DULoxetine HCl 60 MG CAPSULE.DR PO (09:11)
--- NOTE | 2021-10-31 09:52 | P.CNGI_ITS ---
History of Present Illness Data of Consult Service Date: 10/31/21 Requesting physician: Shamika Rodriguez Primary Care Provider: Nuha Trinh NP HPI Reason for consult: GI Bleeding 61 YM with COPD, history of GI bleed,peptic ulcer disease FIDEL, HLD, peripheral neuropathy came to [facility] ED on 10/30/21 with complaints of GI bleed.? Patient reported that he had 5 episodes of GI bleed, the initial 1 associated with diarrhea, then he had for follow-up bleed of bright red blood per rectum.? Pt denied abdominal pain, headache, change in vision, endorses dizziness with no palpitations or chest pain.? He denies nausea or vomiting, fever, chills, sweating or urinary symptoms and no lower extremity edema Of note patient had a similar bleed in October of 2020.? At that time patient underwent workup which revealed no source, and bleed thought to be diverticular. On arrival to the ED patient hemodynamically stable with no abnormal vitals Labs are noted to be significant for WBC of 13.7, hemoglobin was initially 14, repeat dropped to 12.6, labs otherwise unremarkable.? 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 Pt noted some dizziness when he stood up. Pt notes some gas and denies noticing any further bleeding since 2:30 pm yesterday. He notes intermittent heartburn and intermittent constipation. He gives a history of wt loss of 25 lbs which he attributes to not snacking since he had all his teeth removed and waited 4 months to get his dentures. He is planning to maintain his current weight. Patient admits to taking Etodolac 400 mg twice daily for arthritis and back pain. He has been taking Omeprazole 20 mg once daily. Patient denies major cardiac or pulmonary problems. Denies problems with anesthesia in the past. Denies being on chronic anticoagulation. 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 Patient admits to heavy alcohol use in the past and has been abstinent for the past 18 months. He denies smoking. He has 4 sons and 6 grandchildren. Patient denies known family history of colon polyps, colon cancer or other GI malignancies. Mom with lung with ? brain mets. Dad had an aneurysm. ABDOMINAL CT SCAN SHOWED: IMPRESSION: Exam limited noncontrasted study. Cannot assess source of GI bleed. *Diverticulosis without CT evidence of acute diverticulitis. ?Mild circumferential wall thickening with low attenuation involving the terminal ileum, nonspecific however this has been described in association with a chronic or prior colitis including possible IBD. Please correlate clinically. No evidence of bowel obstruction. ? *Ectatic distal aorta 2.7 cm, nonaneurysmal. There are vascular calcifications. ? 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 ENDOSCOPIC STUDIES: 11/01/20 EGD AND COLONOSCOPY SHOWED: Endoscopy Findings: STOMACH:?Greenish bile in the stomach without blood.? Multiple 1-2 cms chronic appearing ulcers in the gastric antrum - some with old clots - likely due to Naprosyn.? No active bleeding or high risk stigmata for bleeding noted.? Antral biopsies were obtained? to check for H Pylori. DUODENUM:?Multiple 5 to 10 mm chronic appearing non-bleeding ulcers noted in the bulb. Colonoscopy Findings: No polyps were detected Multiple non-bleeding medium to large sized diverticuli seen in the entire colon Moderate non-bleeding hemorrhoids on retroflexed exam. There was blood tinged fluid and scattered clots throughout the colon and no active bleeding was seen. LGI Bleed most likely diverticular - appears to have subsided. 03/19/21 EGD SHOWED: ESOPHAGUS: Irregular Z line - biopsied to check for Somers's. STOMACH: Mild gastric erythema. Biopsies were obtained to confirm H Pylori eradication. Ulcers seen on past EGD healed completely. DUODENUM: Normal bulb and descending duodenum.? Ulcers seen on past EGD have healed. Plan: Patient to schedule a FU appointment in the GI Clinic with Pauline Garcia M.D. Above findings were reviewed with the patient and Gastritis handout was given in the discharge area Review of Systems Constitutional: Constitutional: Denies fever(s) and Reports weight loss Eyes: Eyes: Denies change in vision ENT: Denies dysphagia and Reports dizziness Cardiovascular: Cardiovascular: Denies chest pain and Denies dyspnea on exertion Respiratory: Respiratory: Reports cough and Denies dyspnea on exertion Gastrointestinal: Gastrointestinal: Reports abdominal pain, Reports melena, Reports hematochezia and Denies dysphagia Genitourinary: Genitourinary: Reports no additional male genitourinary complaints Musculoskeletal: Musculoskeletal: Reports arthralgias Neurologic: Reports dizziness Psychiatric: Psychiatric: Denies anxiety and Reports depression [facility] Past Medical History Medical History Arthritis Back pain COPD (chronic obstructive pulmonary disease) COVID-19 vaccine series completed Gastric ulcer Hypercholesterolemia FIDEL (obstructive sleep apnea) Peripheral neuropathy PUD (peptic ulcer disease) Family History Family History (Updated 10/31/21 @ 06:17 by Shamika Rodriguez MD) Mother History of cancer Diabetes Surgical History Surgical History History of esophagogastroduodenoscopy (EGD) History of lumbar fusion Hx of colonoscopy Social History Social History Household Members: Spouse Housing: House Are you a primary primary care physician to a significant other at home: No Do you presently have visiting nurse or other home services: No Patient Tobacco Use Status: Former Tobacco user Quit Date: 11 yrs ago Tobacco use type: Cigarette Second Hand Smoke Exposure: No Use of substances other than those prescribed or required for medical reasons: No Currently Displaying Signs/Symptoms of Drug Intoxication Withdrawal: No Have you been hit, kicked, punched, or otherwise hurt by someone within the past year? If so, by whom?: No Do you feel safe in your current relationship?: Yes Is there a partner from a previous relationship who is making you feel unsafe now?: No Are you made to feel afraid or neglected: No Advance Directives: No Do you have thoughts of harming others: None Do you have a plan to hurt others: No Plan Recently lost weight without trying: Unsure Eating poorly because of decreased appetite: No Nutrition Risks: No Nutritional Risk Poor oral hygiene: No service: No Current occupational status: retired Meds Allergies Allergy/AdvReac Type Severity Reaction Status Date / Time clonazepam [Klonopin] Allergy Unknown Anxiety, Verified 10/30/21 15:01 adverse reaction Active Medications: Current Medications Acetaminophen (Acetaminophen 325 Mg Tablet) 650 mg PO Q6H PRN PRN Reason: Pain, Mild (Pain Scale 1-3) Atorvastatin Calcium (Atorvastatin Calcium 10 Mg Tablet) 10 mg PO BEDTIME RO Last Admin: 10/30/21 22:39 Dose: 10 mg Documented by: Duloxetine HCl (Duloxetine Hcl 60 Mg Capsule.Dr) 60 mg PO DAILY [facility] Last Admin: 10/31/21 09:11 Dose: 60 mg Documented by: Lactated Ringer's (Lr) 1,000 mls @ 80 mls/hr IVCONT .[id number] [facility] Last Admin: 10/30/21 22:39 Dose: 80 mls/hr Documented by: Ondansetron HCl (Ondansetron Hcl 4 Mg/2 Ml Vial) 4 mg IVPUSH Q8H PRN PRN Reason: Nausea and Vomiting Pantoprazole Sodium (Pantoprazole Sodium 40 Mg/10 Ml Vial) 40 mg IVPUSH BID@0630,1630 [facility] Last Admin: 10/31/21 06:12 Dose: 40 mg Documented by: Propranolol HCl (Propranolol Hcl 10 Mg Tablet) 10 mg PO DAILY PRN; Protocol PRN Reason: Anxiety Sodium Chloride (0.9 % Sodium Chloride Flush 3 Ml Syringe) 3 ml IVFLUSH QSHIFT [facility] Last Admin: 10/31/21 09:11 Dose: Not Given Documented by: Tramadol HCl (Tramadol Hcl 50 Mg Tablet) 50 mg PO TID [facility] Last Admin: 10/31/21 09:10 Dose: 50 mg Documented by: Zolpidem Tartrate (Zolpidem Tartrate 5 Mg Tablet) 5 mg PO BEDTIME [facility] Last Admin: 10/30/21 22:39 Dose: 5 mg Documented by: Home Medications Medication Instructions Recorded Confirmed Last Taken Type simvastatin 20 mg tablet 20 mg PO BEDTIME 05/06/20 10/30/21 10/29/21 History tramadol 50 mg tablet 1 tab PO TID 10/31/20 10/30/21 10/30/21 History duloxetine 60 mg capsule,delayed 60 mg PO DAILY 10/30/21 10/30/21 10/30/21 History release omeprazole 40 mg capsule,delayed 40 mg PO DAILY@0630 10/30/21 10/30/21 10/30/21 History release propranolol 10 mg tablet 10 mg PO DAILY PRN 10/30/21 10/30/21 Unknown History zolpidem 12.5 mg tablet,extended 12.5 mg PO BEDTIME 10/30/21 10/30/21 10/29/21 History release,multiphase Physical Exam Vital Signs: Vital Signs: Last Vital Signs Temp 97.6 F 10/31/21 08:00 Pulse 67 10/31/21 08:00 Resp 20 10/31/21 08:00 BP 113/77 10/31/21 08:00 Pulse Ox 97 10/31/21 08:00 BMI result Body Mass Index 30.2 Const: General: healthy appearing and no acute distress Nutritional Appearance: obese Orientation/consciousness: patient oriented x3 Limitations: no limitations HEENT: Head: Yes normal to inspection Ears: hearing grossly normal bilaterally Mouth: Normal oral and palatal mucosa present Eyes: Sclerae: sclerae normal Pupils: Equal, round and reactive pupils present Neck: Neck: Yes normal visual inspection Chest: Chest palpation & inspection: normal inspection of the chest Resp: Effort & Inspection: normal respiratory effort Auscultation: clear to auscultation bilaterally Cardio: Palpation: normal PMI Rate: regular rate Rhythm: regular rhythm Heart sounds: S1 normal heart sound present, S2 normal heart sound present and no murmurs GI: Palpation (GI): Soft to palpation, nontender and No hepatosplenomegaly present Auscultation: normal bowel sounds Rectal Exam - Male: Yes deferred Skin: General skin exam: no rashes or lesions noted Neuro: General: patient oriented x3, gait normal and moves all extremities Cranial nerves: Yes Equal, round and reactive pupils present Psych: Appearance: grossly normal Mental Status: mental status grossly normal Results Labs CBC & Chem 7: 10/31/21 06:09 10/31/21 06:09 Labs: Short CBC 10/30/21 10/30/21 10/31/21 Range/Units 15:11 18:48 06:09 WBC 13.7 H 8.3 (4.8-10.8) X10*3/uL Hgb 14.0 12.6 L 13.1 L (14.0-18.0) g/dl Hct 42.2 38.3 L 40.4 L (42.0-52.0) % Plt Count 308 286 (160-400) X10*3/uL BMP 10/30/21 10/31/21 15:11 06:09 Sodium 138 141 Potassium 4.3 4.4 Chloride 104 106 Carbon Dioxide 25 27 BUN 12 11 Creatinine 1.12 1.05 Calcium 9.2 D 9.4 Assessment and Plan (1) Acute GI bleeding: Status: Acute (2) Peptic ulcer disease: Status: Acute (3) Diverticulosis: Status: Acute (4) History of colon polyps: Status: Acute Plan 61 YM with back pain and arthritis admitted with lower GI bleeding consisting of multiple episodes of dark/burgundy colored stools yesterday. No bleeding or BMs today. Pt is on etodolac (Lodine) for back/joint pains. Bleeding can be from recurrent PUD or from diverticulosis. Patient had GI bleeding a year ago and was naproxen twice daily for back pain.? EGD showed multiple ulcers in the stomach and colonoscopy showed sigmoid diverticulosis and a no polyps were detected. Bleeding was felt to be diverticular source.? RECOMMENDATIONS: 1.? Monitor H&H daily x 24 hrs and transfuse if H&H is below 10 & 30. 2.? Continue IV PPI 3.? Proceed with upper endoscopy on 11/01/21.? Procedures Date of Service Date of Service: 10/31/21
[2021-10-31] MEDS: Lactated Ringers 1,000 ML 80 ML IVCONT ×2 (13:13→23:44)
--- NOTE | 2021-10-31 14:14 | MHC.CM.PN ---
PT REPORTS HE LIVES WITH HIS AND IS INDEPENDENT WITH CARE PT DENIES USE OF DME OR HOME SERVICES T REPORTS HIS IS HIS HCP-COPY REQUESTED PT REPORTS HIS PCP IS SAHARA VALENZUELA [address] [place] [address] PT REPORTS HE HAS RECEIVED THE COVID-19 VACCINE AND [employer] CURRENT DC PLAN IS HOME WITH NO SERVICES PT TO ARRANGE TRANSPORT
[2021-10-31] MEDS: Atorvastatin Calcium 10 MG TABLET PO (20:51)
[2021-10-31] MEDS: Zolpidem Tartrate 5 MG TABLET PO (20:51)
[2021-11-01] VITALS (7 sets, daily range): BP systolic 102–124; BP diastolic 58–77; PULSE 64–89; RESP 16–20; TEMP 36.5–37.1; O2SAT 93–99
[2021-11-01] MEDS: Pantoprazole Sodium 40 MG/10 ML VIAL IVPUSH ×2 (05:58→16:13)
[2021-11-01] MEDS: DULoxetine HCl 60 MG CAPSULE.DR PO (07:57)
[2021-11-01] MEDS: traMADoL HCL 50 MG TABLET PO ×3 (07:57→21:37)
--- NOTE | 2021-11-01 08:04 | P.PNIM_ITS ---
Subjective Subjective Date of Service: 11/01/21 Interval History: 2episods bleeding last afternoon/evening Review of Systems Denies any chest pain or shortness of breath or abdominal pain or fever chills or cough or phlegm. Did not past the bowel movement yet today. Physical Exam Vital Signs: Vital Signs: Last Vital Signs Temp 97.9 F 11/01/21 07:49 Pulse 70 11/01/21 07:49 Resp 18 11/01/21 07:49 BP 119/75 11/01/21 07:49 Pulse Ox 98 11/01/21 07:49 BMI result Body Mass Index 30.2 ?Appearance: Alert.? Oriented X3.? not in distress.? cvs: rrr, [id number] , no murmur res: clear to auscultation ,no rhonchii or wheezing abd: no rebound or guarding ,nt, bs present. ext pulses present , no cyanosis. neuro: axo3 , nonfocal. Objective Data Active Medications Acetaminophen (Acetaminophen 325 Mg Tablet) 650 mg PO Q6H PRN PRN Reason: Pain, Mild (Pain Scale 1-3) Atorvastatin Calcium (Atorvastatin Calcium 10 Mg Tablet) 10 mg PO BEDTIME [facility] Last Admin: 10/31/21 20:51 Dose: 10 mg Documented by: IVONNE Duloxetine HCl (Duloxetine Hcl 60 Mg Capsule.) 60 mg PO DAILY [facility] Last Admin: 11/01/21 07:57 Dose: 60 mg Documented by: ADENIKE Lactated Ringer's (Lr) 1,000 mls @ 80 mls/hr IVCONT .[id number] [facility] Last Admin: 10/31/21 23:44 Dose: 80 mls/hr Documented by: IVONNE Ondansetron HCl (Ondansetron Hcl 4 Mg/2 Ml Vial) 4 mg IVPUSH Q8H PRN PRN Reason: Nausea and Vomiting Pantoprazole Sodium (Pantoprazole Sodium 40 Mg/10 Ml Vial) 40 mg IVPUSH BID@0630,1630 [facility] Last Admin: 11/01/21 05:58 Dose: 40 mg Documented by: IVONNE Propranolol HCl (Propranolol Hcl 10 Mg Tablet) 10 mg PO DAILY PRN; Protocol PRN Reason: Anxiety Sodium Chloride (0.9 % Sodium Chloride Flush 3 Ml Syringe) 3 ml IVFLUSH QSHIFT [facility] Last Admin: 11/01/21 07:58 Dose: Not Given Documented by: ADENIKE Non-Admin Reason: IV Running Tramadol HCl (Tramadol Hcl 50 Mg Tablet) 50 mg PO TID [facility] Last Admin: 11/01/21 07:57 Dose: 50 mg Documented by: ADENIKE Zolpidem Tartrate (Zolpidem Tartrate 5 Mg Tablet) 5 mg PO BEDTIME [facility] Last Admin: 10/31/21 20:51 Dose: 5 mg Documented by: IVONNE Labs CBC & Chem 7: 11/01/21 11:34 10/31/21 06:09 Assessment and Plan (1) Acute GI bleeding: Status: Acute Plan 61-year-old male with past medical history of the presents to the hospital with acute GI bleed ?acute GI bleed - lower versus upper GI h/h trend down from 13-10.7 - GI consulted-egd done:spoke to GI-prelim egd seems fine , official report pending GI recommended to monitor H&H and observe 24 hour since he had bleeding last eveing, continue iv ppi,moniter h/h if stable in am , will go home with po ppi. Gi follow up in am , will repeat h/h if bleed again depression anxiety - continue duloxetine hyperlipidemia - continue statin ?insomnia - continue zolpidem DVT prophylaxis:? SCDs need for inpatient : gi bleed,, moniter h/h Quality Stroke Does the patient have a stroke diagnosis?: No VTE Prior VTE?: No VTE Risk Level:: Medical - moderate - high VTE Device Contraindication: N/A - Device Ordered VTE Drug Contraindication: Treatment Not Indicated
--- NOTE | 2021-11-01 09:18 | P.CONAN_ITS ---
[facility] Active Problems Active Problems: All Active Problems (Updated 10/31/21 @ 00:02 by Jaycob Irving MD) Acute GI bleeding (Acute) Spontaneous ecchymosis (Acute) Acute blood loss anemia (Acute) COPD (chronic obstructive pulmonary disease) (Acute) Hypoxia (Acute) FIDEL (obstructive sleep apnea) (Acute) Supplemental oxygen dependent (Acute) Peptic ulcer disease (Acute) Diverticulosis (Acute) History of colon polyps (Acute) Joint pain (Acute) Past Medical History Medical History Arthritis Back pain COPD (chronic obstructive pulmonary disease) COVID-19 vaccine series completed Gastric ulcer Hypercholesterolemia FIDEL (obstructive sleep apnea) Peripheral neuropathy PUD (peptic ulcer disease) Family History Family History (Updated 10/31/21 @ 06:17 by Shamika Rodriguez MD) Mother History of cancer Diabetes Family history of problems with anesthesia: No Surgical History Surgical History History of esophagogastroduodenoscopy (EGD) History of lumbar fusion Hx of colonoscopy History of Problems with Anesthesia: No Social History Social History Household Members: Spouse Housing: House Are you a primary career and technology education teacher to a significant other at home: No Do you presently have visiting nurse or other home services: No Patient Tobacco Use Status: Former Tobacco user Quit Date: 11 yrs ago Tobacco use type: Cigarette Second Hand Smoke Exposure: No Use of substances other than those prescribed or required for medical reasons: No Currently Displaying Signs/Symptoms of Drug Intoxication Withdrawal: No Have you been hit, kicked, punched, or otherwise hurt by someone within the past year? If so, by whom?: No Do you feel safe in your current relationship?: Yes Is there a partner from a previous relationship who is making you feel unsafe now?: No Are you made to feel afraid or neglected: No Are you DNR?: No Advance Directives: No Do you have thoughts of harming others: None Do you have a plan to hurt others: No Plan Recently lost weight without trying: Unsure Eating poorly because of decreased appetite: No Nutrition Risks: No Nutritional Risk Poor oral hygiene: No service: No Current occupational status: retired Meds Allergies Allergy/AdvReac Type Severity Reaction Status Date / Time clonazepam [Klonopin] Allergy Unknown Anxiety, Verified 10/30/21 15:01 adverse reaction Active Medications: Current Medications Acetaminophen (Acetaminophen 325 Mg Tablet) 650 mg PO Q6H PRN PRN Reason: Pain, Mild (Pain Scale 1-3) Atorvastatin Calcium (Atorvastatin Calcium 10 Mg Tablet) 10 mg PO BEDTIME [facility] Last Admin: 10/31/21 20:51 Dose: 10 mg Documented by: Duloxetine HCl (Duloxetine Hcl 60 Mg Capsule.Dr) 60 mg PO DAILY [facility] Last Admin: 11/01/21 07:57 Dose: 60 mg Documented by: Lactated Ringer's (Lr) 1,000 mls @ 80 mls/hr IVCONT .[id number] [facility] Last Admin: 10/31/21 23:44 Dose: 80 mls/hr Documented by: Lactated Ringer's (Lr) 1,000 mls @ 50 mls/hr IVCONT .Q20H RO Ondansetron HCl (Ondansetron Hcl 4 Mg/2 Ml Vial) 4 mg IVPUSH Q8H PRN PRN Reason: Nausea and Vomiting Pantoprazole Sodium (Pantoprazole Sodium 40 Mg/10 Ml Vial) 40 mg IVPUSH BID@0630,1630 [facility] Last Admin: 11/01/21 05:58 Dose: 40 mg Documented by: Propranolol HCl (Propranolol Hcl 10 Mg Tablet) 10 mg PO DAILY PRN; Protocol PRN Reason: Anxiety Sodium Chloride (0.9 % Sodium Chloride Flush 3 Ml Syringe) 3 ml IVFLUSH QSHIFT [facility] Last Admin: 11/01/21 07:58 Dose: Not Given Documented by: Tramadol HCl (Tramadol Hcl 50 Mg Tablet) 50 mg PO TID [facility] Last Admin: 11/01/21 07:57 Dose: 50 mg Documented by: Zolpidem Tartrate (Zolpidem Tartrate 5 Mg Tablet) 5 mg PO BEDTIME [facility] Last Admin: 10/31/21 20:51 Dose: 5 mg Documented by: Home Medications Medication Instructions Recorded Confirmed Last Taken Type simvastatin 20 mg tablet 20 mg PO BEDTIME 05/06/20 10/30/21 10/29/21 History tramadol 50 mg tablet 1 tab PO TID 10/31/20 10/30/21 10/30/21 History duloxetine 60 mg capsule,delayed 60 mg PO DAILY 10/30/21 10/30/21 10/30/21 History release omeprazole 40 mg capsule,delayed 40 mg PO DAILY@0630 10/30/21 10/30/21 10/30/21 History release propranolol 10 mg tablet 10 mg PO DAILY PRN 10/30/21 10/30/21 Unknown History zolpidem 12.5 mg tablet,extended 12.5 mg PO BEDTIME 10/30/21 10/30/21 10/29/21 History release,multiphase Exam Exam Date and Time: November 01, [id number] Height,Weight and Vital Signs: Height 5 ft 11 in Weight 98.43 kg Last Vital Signs Temp 97.9 F 11/01/21 07:49 Pulse 70 11/01/21 07:49 Resp 18 11/01/21 07:49 BP 119/75 11/01/21 07:49 Pulse Ox 98 11/01/21 07:49 Pertinent Lab Results Pertinent Lab Results: Laboratory Tests 10/30/21 10/30/21 10/30/21 15:11 15:11 17:26 WBC 13.7 H RBC 4.71 Hgb 14.0 Hct 42.2 MCV 89.6 MCH 29.7 MCHC 33.2 RDW 13.7 Plt Count 308 MPV 10.7 Immature Gran % (Auto) 0.7 H Neut % (Auto) 77.9 H Lymph % (Auto) 15.2 L Keith % (Auto) 5.3 Eos % (Auto) 0.5 Baso % (Auto) 0.4 Lymph # (Auto) 2.1 Keith # (Auto) 0.7 Eos # (Auto) 0.1 Baso # (Auto) 0.1 Abs Immat Gran (auto) 0.09 H Absolute Neuts (auto) 10.6 H Absolute Nucleated RBC 0.000 Nucleated RBC % (auto) 0.0 PT INR Sodium 138 Potassium 4.3 Chloride 104 Carbon Dioxide 25 Anion Gap 13 BUN 12 Creatinine 1.12 Estim Creat Clear Calc 80.7 Estimated GFR > 60 Random Glucose 114 Calcium 9.2 D Stool Occult Blood COVID-19 (JACKLYN) Negative COVID-19 Clin Com See Note Blood Type Antibody Screen 10/30/21 10/30/21 10/30/21 17:26 17:26 17:28 WBC RBC Hgb Hct MCV MCH MCHC RDW Plt Count MPV Immature Gran % (Auto) Neut % (Auto) Lymph % (Auto) Keith % (Auto) Eos % (Auto) Baso % (Auto) Lymph # (Auto) Keith # (Auto) Eos # (Auto) Baso # (Auto) Abs Immat Gran (auto) Absolute Neuts (auto) Absolute Nucleated RBC Nucleated RBC % (auto) PT 11.7 INR 1.0 Sodium Potassium Chloride Carbon Dioxide Anion Gap BUN Creatinine Estim Creat Clear Calc Estimated GFR Random Glucose Calcium Stool Occult Blood POSITIVE COVID-19 (JACKLYN) COVID-19 IQMS Com Blood Type A Positive Antibody Screen NEGATIVE 10/30/21 10/31/21 10/31/21 18:48 06:09 06:09 WBC 8.3 RBC 4.46 L Hgb 12.6 L 13.1 L Hct 38.3 L 40.4 L MCV 90.6 MCH 29.4 MCHC 32.4 RDW 13.9 Plt Count 286 MPV 10.7 Immature Gran % (Auto) 0.4 Neut % (Auto) 56.2 Lymph % (Auto) 34.1 Keith % (Auto) 7.1 Eos % (Auto) 1.8 Baso % (Auto) 0.4 Lymph # (Auto) 2.8 Keith # (Auto) 0.6 Eos # (Auto) 0.2 Baso # (Auto) 0.0 Abs Immat Gran (auto) 0.03 Absolute Neuts (auto) 4.6 Absolute Nucleated RBC 0.000 Nucleated RBC % (auto) 0.0 PT INR Sodium 141 Potassium 4.4 Chloride 106 Carbon Dioxide 27 Anion Gap 12 BUN 11 Creatinine 1.05 Estim Creat Clear Calc 86.1 Estimated GFR > 60 Random Glucose 104 Calcium 9.4 Stool Occult Blood COVID-19 (JACKLYN) COVID-19 IQMS Com Blood Type Antibody Screen Airway Mallampati Class: II TM Dist: >3cm Neck ROM: Full Heart: rrr Lungs: cta Assessment and Plan Assessment Anesthesia Assessment: Anesthesia Plan Discussed and Chart Reviewed Final Anesthetic Review Family History of Problems with Anesthesia: No History of Problems with Anesthesia: No NPO: Yes ASA Class: II Final Preanesthetic Review: No Changes in Pt Med Stat, Meds/Allgs Chart Reviewed and Consent Obtained/Reviewed Patient Risk: Intermediate Procedure Risk: Intermediate Anesthetic Plan Anesthetic Plan: MAC: Disposition: Standard PACU
[2021-11-01] MEDS: Lactated Ringers 1,000 ML 50 ML IVCONT ×2 (10:12→12:49)
--- NOTE | 2021-11-01 10:23 | MHC.SHP ---
Pre-Procedural Eval Section A Date of Service: 11/01/21 The patient is an INPATIENT: Yes Changes since office visit: Yes New Medical Problems, Yes Changes in Medication and Yes Patient answered all questions; No Cold of Flu in the past 2 weeks The History & Physical has been completed within 30 days and I have reviewed it.: Yes Section B Chief Complaint: GI Bleed Allergies: Allergies Allergy/AdvReac Type Severity Reaction Status Date / Time clonazepam [Klonopin] Allergy Unknown Anxiety, Verified 10/30/21 15:01 adverse reaction Plan I have reviewed the history and physical and performed a pertinent physical examination on my patient. No changes have occurred unless specified.
--- NOTE | 2021-11-01 10:24 | W.PM.OPN ---
Operative Note Operative Note Date of Service: 11/01/21 Narrative: Pre-op diagnosis: GI Bleeding Post-op diagnosis:?other (Mild gastritis, No UGI source of bleeding) Procedure: FLEXIBLE TRANSORAL UPPER GASTROINTESTINAL ENDOSCOPY Consent:?Indications for the procedure and potential complications of bleeding, perforation, reaction to medications and missed diagnosis were discussed with the patient and informed consent was obtained. Instrument:?Olympus GIF H 190 mid size upper endoscope Monitoring: Vital signs and clinical assessment, continuous EKG monitoring, Pulse oximetry, Carbon Dioxide monitoring and blood pressure monitoring were done throughout the procedure. Procedure:?The patient was placed in the left lateral decubitis position and pre-procedure medications were administered and a bite block was placed. The endoscope was inserted into the mouth and advanced under direct vision to the third part of duodenum. A careful inspection was made as the upper endoscope was withdrawn including a retroflexed examination of the proximal stomach; Findings and interventions are described below. Findings: Larynx:? Normal Esophagus: GE junction at 40 cms.? No esophagitis or Somers's. Stomach: Minimal gastric erythema. Grade 2 flap valve on retroflexed examination of the cardia. Duodenum: Normal bulb and descending duodenum Intervention: None Impression and Post Procedure Diagnosis: Endoscopy Findings: STOMACH: Mild gastritis, no ulcers or potential UGI source of bleeding seen. Bleeding is likely diverticular from the right colon versus . Plan: Repeat CBC. Continue Omeprazole PO daily. Above findings were reviewed with the patient. MR Enterography to FU ? enteritis noted on Abd CT scan ABD CT Scan showed (reviewed with radiology): Mild circumferential wall thickening with low attenuation involving the terminal ileum, nonspecific however this has been described in association with a chronic or prior colitis including possible IBD. Surgeon: Pauline Garcia MD Anesthesia:?MAC (Dr Aguilar) Was an Patient Ambassador used for this Procedure?:?Yes Patient Ambassador:?Angélica Villa Estimated blood loss (mL):?0 Pathology:?none sent Condition:?stable Disposition:?PACU
[2021-11-01 11:51] LABS: Hemoglobin 10.7 g/dl (14.0-18.0)
--- NOTE | 2021-11-01 12:43 | MHC.CM.PN ---
per rounds pt maybe dcd today plan remanins home no servceis
--- NOTE | 2021-11-01 14:41 | MHC.CM.PN ---
met with pt he reports having medicare imfo given to registration imm signed by pt
[2021-11-01] MEDS: Atorvastatin Calcium 10 MG TABLET PO (21:38)
[2021-11-01] MEDS: Zolpidem Tartrate 5 MG TABLET PO (21:38)
[2021-11-02] VITALS (7 sets, daily range): BP systolic 112–139; BP diastolic 47–76; PULSE 63–86; RESP 16–20; TEMP 36.4–36.9; O2SAT 96–98
[2021-11-02] MEDS: 0.9 % Sodium Chloride Flush 3 ML SYRINGE IVFLUSH ×3 (01:35→16:31)
--- NOTE | 2021-11-02 04:44 | PC.NURSE ---
PT PASSED 2 SMALL BURGUNDY STOOLS AND THEN 1 LARGE RED BM WITH CLOTS. PT FEELS WEAK. BP STABLE 114/66. HEART RATE 60'S. DR HENAO NOTIFIED. WILL RECHECK CBC THIS MORNING. PT INSTRUCTED TO SIT UP SLOWLY AND TO CALL NURSE IF DIZZY, NOT TO GET UP. CALL GÓMEZ IN REACH.
[2021-11-02] MEDS: Pantoprazole Sodium 40 MG/10 ML VIAL IVPUSH ×2 (06:01→16:31)
[2021-11-02 07:34] LABS: Hematocrit 30.5 % (42.0-52.0); Hemoglobin 10.1 g/dl (14.0-18.0); Mean Corpuscular HGB Conc 33.1 g/dl (31.0-36.0); Mean Corpuscular Hemoglobin 30.1 pg (27.0-33.0); Mean Platelet Volume 10.9 fL (9.4-12.4); Platelet Count 230 X10*3/uL (160-400); Red Blood Count 3.35 X10*6/uL (4.60-5.80); Red Cell Distribution Width 13.7 % (11.0-16.0); White Blood Count 5.9 X10*3/uL (4.8-10.8)
[2021-11-02] MEDS: traMADoL HCL 50 MG TABLET PO ×3 (08:02→21:06)
[2021-11-02] MEDS: DULoxetine HCl 60 MG CAPSULE.DR PO (08:02)
--- NOTE | 2021-11-02 08:33 | HO.POSTANES ---
Post Anesthesia Evaluation Post Anesthesia Evaluation Vital Signs: Vital Signs Temp Pulse Resp BP Pulse Ox 11/02/21 07:50 97.9 F 76 16 120/76 97 11/02/21 03:30 97.5 F 63 16 114/66 98 11/02/21 00:00 97.5 F 67 17 139/47 L 98 Anesthesia: Monitored Mental Status: Awake Pain Control: Satisfactory Nausea/Vomiting: None Hydration: Adequate Anesthesia-Related Issues: No Anes. Related Issues
--- NOTE | 2021-11-02 10:33 | P.PNIM_ITS ---
Subjective Subjective Date of Service: 11/02/21 Interval History: follow-up on GI bleeding interval history; patient had 3 bowel movement this morning with bright red blood, EGD yesterday with no source of bleed. his hemoglobin is stable this morning. Review of Systems Rectal bleeding noted this morning., No abdominal pain, no shortness of breath or chest pain. Physical Exam 2 Vital Signs: Vital Signs: Last Vital Signs Temp 97.9 F 11/02/21 07:50 Pulse 76 11/02/21 07:50 Resp 16 11/02/21 07:50 BP 120/76 11/02/21 07:50 Pulse Ox 98 11/02/21 09:18 BMI result Body Mass Index 30.2 Const: Other: General: AO X 3, no acute distress Resp: CTA bilateral CVS: S1,S2,RRR GI: +BS, NT, no distention, Rectal exam deferred Skin: No rash Neuro: motor grossly intact Psych: appropriate affect Objective Data Active Medications Acetaminophen (Acetaminophen 325 Mg Tablet) 650 mg PO Q6H PRN PRN Reason: Pain, Mild (Pain Scale 1-3) Atorvastatin Calcium (Atorvastatin Calcium 10 Mg Tablet) 10 mg PO BEDTIME [facility] Last Admin: 11/01/21 21:38 Dose: 10 mg Documented by: CAITIE Duloxetine HCl (Duloxetine Hcl 60 Mg Capsule.) 60 mg PO DAILY [facility] Last Admin: 11/02/21 08:02 Dose: 60 mg Documented by: CALEB Ondansetron HCl (Ondansetron Hcl 4 Mg/2 Ml Vial) 4 mg IVPUSH Q8H PRN PRN Reason: Nausea and Vomiting Pantoprazole Sodium (Pantoprazole Sodium 40 Mg/10 Ml Vial) 40 mg IVPUSH BID@ 0630,1630 [facility] Last Admin: 11/02/21 06:01 Dose: 40 mg Documented by: CAROLEE Propranolol HCl (Propranolol Hcl 10 Mg Tablet) 10 mg PO DAILY PRN; Protocol PRN Reason: Anxiety Sodium Chloride (0.9 % Sodium Chloride Flush 3 Ml Syringe) 3 ml IVFLUSH QSHIFT [facility] Last Admin: 11/02/21 08:04 Dose: 3 ml Documented by: CALEB Tramadol HCl (Tramadol Hcl 50 Mg Tablet) 50 mg PO TID [facility] Last Admin: 11/02/21 08:02 Dose: 50 mg Documented by: CALEB Zolpidem Tartrate (Zolpidem Tartrate 5 Mg Tablet) 5 mg PO BEDTIME RO Last Admin: 11/01/21 21:38 Dose: 5 mg Documented by: CAITIE Labs CBC & Chem 7: 11/02/21 07:11 10/31/21 06:09 Labs: Laboratory Results - last 24 hr 11/02/21 07:11 MCV 91.0 MCH 30.1 MCHC 33.1 RDW 13.7 Plt Count 230 MPV 10.9 Absolute Nucleated RBC 0.000 Nucleated RBC % (auto) 0.0 Assessment and Plan (1) Acute GI bleeding: Status: Acute Plan 61-year-old male with past medical history of the presents to the hospital with acute GI bleed #Acute GI bleed suspect diverticular bleed #Acute blood loss anemia - lower versus upper GI - GI is recommended CT enterography today depression anxiety - continue duloxetine hyperlipidemia - continue statin ?insomnia - continue zolpidem DVT prophylaxis:? SCDs need for inpatient : gi bleed with ongoing workup and need for close monitoring with hemoglobin and hematocrit as well as hemodynamics. Quality Stroke Does the patient have a stroke diagnosis?: No VTE Prior VTE?: No VTE Risk Level:: Medical - moderate - high VTE Device Contraindication: N/A - Device Ordered VTE Drug Contraindication: Treatment Not Indicated
[2021-11-02] MEDS: iohexoL 350 MG/ML 100 ML INFUS..BTL IV (15:52)
[2021-11-02] MEDS: Sorbitol/Mannit/Xanth Imaging 500 ML LIQUID 1500 ML PO (15:54)
[2021-11-02] MEDS: Atorvastatin Calcium 10 MG TABLET PO (21:06)
[2021-11-02] MEDS: Zolpidem Tartrate 5 MG TABLET PO (21:07)
[2021-11-03 03:22] VITALS: BP 143/57; PULSE 73; RESP 17; TEMP 36.7; O2SAT 98
[2021-11-03] MEDS: Pantoprazole Sodium 40 MG/10 ML VIAL IVPUSH (05:34)
[2021-11-03 07:41] VITALS: BP 120/79; PULSE 78; RESP 20; TEMP 37.2; O2SAT 98
[2021-11-03 08:29] LABS: Hematocrit 29.1 % (42.0-52.0); Hemoglobin 9.8 g/dl (14.0-18.0); Mean Corpuscular HGB Conc 33.7 g/dl (31.0-36.0); Mean Corpuscular Hemoglobin 30.3 pg (27.0-33.0); Mean Corpuscular Volume 90.1 fL (80.0-98.0); Mean Platelet Volume 10.8 fL (9.4-12.4); Platelet Count 256 X10*3/uL (160-400); Red Blood Count 3.23 X10*6/uL (4.60-5.80); Red Cell Distribution Width 13.9 % (11.0-16.0); White Blood Count 6.4 X10*3/uL (4.8-10.8)
[2021-11-03] MEDS: traMADoL HCL 50 MG TABLET PO ×2 (09:00→15:43)
[2021-11-03] MEDS: Acetaminophen 325 MG TABLET 650 MG PO (09:01)
[2021-11-03] MEDS: DULoxetine HCl 60 MG CAPSULE.DR PO (09:01)
[2021-11-03] MEDS: 0.9 % Sodium Chloride Flush 3 ML SYRINGE IVFLUSH (09:01)
[2021-11-03 11:14] VITALS: BP 122/74; PULSE 81; RESP 20; TEMP 36.7; O2SAT 96
--- NOTE | 2021-11-03 11:22 | MHC.CM.PN ---
per rounds no anticapated dc date at this time
--- NOTE | 2021-11-03 14:22 | P.DS_ITS ---
DS: Providers Provider Date of Service: 11/03/21 Date of admission: 10/30/21 20:56 Primary care physician: Dyan Mclaughlin DNP Consults: 10/30/21 20:53 Consult to Gastroenterology Routine Consulting Provider: Pauline Garcia Reason for consultation: GI bleed Has provider been notified: No DS: Diagnosis Discharge Diagnosis (1) Acute GI bleeding: Status: Acute DS: Summary Hospital Course Hospital Course: Chief Complaint: gi bleed This is a 61-year-old male with past medical history of COPD, history of GI bleed,peptic ulcer disease FIDEL, HLD, peripheral neuropathy, who presents to the hospital with complaints of GI bleed.? Patient reports that he had about 5 episodes of GI bleed, the initial 1 associated with diarrhea, then he had for follow-up bleed of bright red blood per rectum.? He denies any abdominal pain, no headache, no change in vision, endorses dizziness with no palpitations or chest pain.? No abdominal pain nausea or vomiting no urinary symptoms and no lower extremity edema Of note patient had a similar bleed in October of 2020.? At that time patient underwent workup which revealed no source, and bleed thought to be diverticular. On arrival to the ED patient hemodynamically stable with no abnormal vitals Labs are noted to be significant for WBC of 13.7, hemoglobin was initially 14, repeat dropped to 12.6, labs otherwise unremarkable.? Patient will be admitted for further management hospital course: #Acute GI bleed with acute blood loss anemia, suspect diverticular bleed. He had EGD that showed no source of bleed and had some rectal bleed in during hospitalization so he had a CT enterography - GI is recommended CT enterography wich was unrevealing. His hematocrit did drop from max of 40 to 30 which has been stable the last 3 days and he has not had further bleeding the last 24 hours. He is hemodynacmically stable and will follow up with Dr. Garcia for possible colonoscopy or capsule endoscopy Time Spent with Patient Time attestation: Total time spent providing and/or coordinating discharge services: Discharge coordination time: Greater than 30 minutes Quality: Safe Use of Opioids Does Pt have an Active Cancer Diagnosis on the Problem List?: No Quality: Stroke Does the patient have a stroke diagnosis?: No Physical Exam Vital Signs: Vital Signs: Last Vital Signs Temp 98.0 F 11/03/21 11:14 Pulse 81 11/03/21 11:14 Resp 20 11/03/21 11:14 BP 122/74 11/03/21 11:14 Pulse Ox 96 11/03/21 11:14 BMI result Body Mass Index 30.2 DS: Data Data Completed and Pending Completed studies during hospitalization [Text1]: Procedures Excision of Stomach, Pylorus, Via Natural or Artificial Opening Endoscopic, Diagnostic (11/01/20) Inspection of Lower Intestinal Tract, Via Natural or Artificial Opening Endoscopic (11/01/20) Transfusion of Nonautologous Red Blood Cells into Peripheral Vein, Percutaneous Approach (11/01/20) Labs on day of discharge: Laboratory Results - last 24 hr 11/03/21 08:08 WBC 6.4 RBC 3.23 L Hgb 9.8 L Hct 29.1 L MCV 90.1 MCH 30.3 MCHC 33.7 RDW 13.9 Plt Count 256 MPV 10.8 Absolute Nucleated RBC 0.000 Nucleated RBC % (auto) 0.0 Discharge Plan Discharge Anticipated Discharge Date/Time: 11/03/21 14:08 Patient Disposition: Home, Self-Care Discharge Diagnosis: GI bleeding, acute blood loss anemia Referrals: Dyan Mclaughlin, SHENA, W[employer] ENGINEER, [employer]ING [employer] [Primary Care Provider] - 1 Week Discharge Medications: Continued etodolac [Lodine] 400 mg tablet 400 mg PO BID 30 Days Qty: 60 3RF tramadol 50 mg tablet 1 tab PO TID 0RF duloxetine 60 mg Capsule,Delayed Release(Dr/Ec) 60 mg PO DAILY 0RF zolpidem 12.5 mg Tablet,Ext Release Multiphase 12.5 mg PO BEDTIME 0RF omeprazole 40 mg capsule,delayed release(DR/EC) 40 mg PO DAILY@0630 0RF propranolol 10 mg Tablet 10 mg PO DAILY PRN (Reason: Anxiety) 0RF simvastatin 20 mg tablet 20 mg PO BEDTIME 0RF Discharge Orders: Discharge Order (Routine); Ordered 11/03/21 Ordered By: Cesar Pepper Diet: advance to usual diet and diabetic diet Activity on Discharge: As tolerated Stand Alone Forms: Patient Portal Discharge page Care Plan Goals: no bleeding and resolution of anemia Health Concerns: Gi bleeding, anemia Plan of Treatment: do not take aspirin, motrin and if you notice bleeding, feel dizzy Assessment: if you feel dizzy, sob or blood in your stool please call 911 or return to the hospital
--- NOTE | 2021-11-03 14:38 | MHC.CM.PN ---
pt dcd home no skilled servcies ordered by
== END 2021-11-03 16:48 | disposition home or self-care (01) | DRG 244 ==
LOC: HO.ED 16:58 → HO.EDOVER 21:15 → HO.IMC 22:37
PROVIDERS: Hospitalist; Internal Medicine; Internal Medicine Gastroenterology; Admitting Provider Internal Medicine; Emergency Provider Internal Medicine; PCP Registered Nurse; Visit Provider Internal Medicine
PROC: 0DJ08ZZ Inspection of Upper Intestinal Tract, Via Natural or Artificial Opening Endoscopic (ICD-10-PCS; CPT 43235; principal; 2021-11-01 15:40)
DX: K57.31 Diverticulosis of large intestine without perforation or abscess with bleeding (principal); D62 Acute posthemorrhagic anemia; E78.5 Hyperlipidemia, unspecified; K29.70 Gastritis, unspecified, without bleeding; G47.33 Obstructive sleep apnea (adult) (pediatric); F32.A Depression, unspecified; G62.9 Polyneuropathy, unspecified; F41.9 Anxiety disorder, unspecified; G47.00 Insomnia, unspecified; J44.9 Chronic obstructive pulmonary disease, unspecified; Z20.822 Contact with and (suspected) exposure to COVID-19; Z87.11 Personal history of peptic ulcer disease; Z87.891 Personal history of nicotine dependence; Z98.1 Arthrodesis status
CPT/HCPCS: 43235; 36415; 74176; 74177; 80048; 82272; 85014; 85018; 85025; 85027; 85610; 86850; 86900; 86901; 87635; 96374; 99219; 99284; 99285; Q9967